=== PATIENT | female | born 1970 | race Caucasian/White ===

== ENCOUNTER 2025-06-04 22:08 | Inpatient (IN) | payer OTHER, SELFPAY ==
[2025-06-04 18:52] VITALS: BP 182/106
[2025-06-04 19:11] LABS: Hematocrit 21.7 % (37.0-47.0); Hemoglobin 7.1 g/dL (12.0-16.0); Mean Corp Hgb Conc. 32.7 g/dL (33.0-37.0); Mean Corpuscular Volume 94.3 fL (81.0-99.0); Nucleated Red Blood Cells % 0 %; Platelet Count 144 10^3/uL (130-400); Red Cell Dist. Width 13.3 % (11.5-14.5)
[2025-06-04 19:43] LABS: ALT (SGPT) 43 U/L (0-35); AST (SGOT) 39 U/L (14-36); Albumin 4.6 g/dl (3.5-5.0); Alkaline Phosphatase 161 U/L (38-126); Blood Urea Nitrogen 79 mg/dl (7-17); Calcium 9.0 mg/dl (8.4-10.2); Carbon Dioxide 21 mmol/L (22-30); Chloride 109 mmol/L (98-107); Glucose 113 mg/dl (70-99); Potassium 6.2 mmol/L (3.5-5.1); Sodium 138 mmol/L (135-145); Total Protein 7.2 g/dl (6.3-8.2); eGFR 8.94
[2025-06-04 20:29] VITALS: BP 160/99
--- NOTE | 2025-06-04 20:32 | ED.GENMED ---
History of Present Illness
General
Chief Complaint: Abnormal Lab Value
Source: patient
Exam Limitations: none
Time Seen by Provider: 06/04/25 20:14
Nursing documentation reviewed up to this point in time: agreed with
History of Present Illness
History of Present Illness:
54 yo female with no significant PMHX presents with complaints of gastrointestinal bloating and discomfort for the last four months. She reports a history of moving to the area two months ago after living in [facility] for 14 years. Initially, she
suspected parasitic infections and took anti-parasitic medications, including one with natural ingredients like wormwood and black walnut, in December and January without resolution of symptoms. The patient experiences bloating after meals, cramping,
and has recently noticed smelling and tasting ammonia. She has also experienced nausea and occasional vomiting. She mentions the development of painful gas. She attempted dietary changes, including following a low FODMAP diet, with little
improvement in symptoms. Saw her new PCP and yesterday had blood work, stool samples, and a chest x-ray, which was clear. Her primary care doctor called her today regarding labs indicative of kidney failure and abnormal liver function. The patient
is also experiencing exhaustion and difficulty eating.
Past History
Past History
ED Past Medical History: None
ED Past Surgical History: Gynecological (ectopic )
Social History
Tobacco: Non-smoker
Alcohol: Occasional
Personal: Single
Living: with family
Employment: Not employed
Review of Systems
Review of Systems
Allergies reviewed?: Yes
All Other Systems: ROS reviewed and negative except as documented in HPI and ROS
Constitutional: Reports fatigue; Denies fever
Respiratory: Denies trouble breathing
Cardiac: Denies chest pain
ABD/GI: Reports abdominal pain, nausea, vomiting (occasional) and anorexia
: Reports no symptoms
Musculoskeletal: Reports no symptoms
Skin: Reports no symptoms
Neurological: Reports no symptoms
Phy Exam
Physical Exam
Physical Exam:
GENERAL: No acute distress. A&Ox3.
CONSTITUTIONAL: Afebrile.
EYES: clear, conjunctivae normal
ENMT: moist mucus membranes, Pharynx nl
RESPIRATORY: Regular respirations, nonlabored, lungs clear.
CARDIOVASCULAR: Regular rate and rhythm, no murmurs, no rubs.
GI: Soft, mildly distended, tender across upper abdomen, normal BS
MUSCULOSKELETAL: Moves with ease. Well perfused.
SKIN: Warm, dry, pink
PSYCH: Normal mood and affect. Well kept, interactive and appropriate
NEUROLOGIC: Awake, alert and oriented. No focal neurological deficits
Course
Orders/Labs/Results
Orders:
Orders
06/04/25 Breakfast
Regular
At Your Request: Full Participation
06/04/25 18:54
ECG [Electrocardiogram (*1)] Urgent
Reason for Study: Abdominal Pain
EKG- Treatment ONCE
06/04/25 19:00
Type And Crossmatch [Type+Screen] Urgent
Complete Blood Count/With Diff Urgent
Comprehensive Metabolic Panel Urgent
Lactic Acid Urgent
Lipase Urgent
Comment: ADDON
06/04/25 19:35
ABO2 Urgent
BBK Wristband Number:
Associate notified that ABO2 has been ordered: [id number]
Date: 06/04/25
Time: 19:22
Telecommunications Manager ID: [id number]
06/04/25 20:41
Add On- LAB Urgent
Tests Added?: Lipase
06/04/25 20:44
Sodium Zirconium Cyclosilicate [Lokelma] 10 gram PO NOW STA
06/04/25 20:45
Dextrose 50%-Water [Dextrose 50% Syringe] 12.5 grams IV [id number] PRN
Dextrose 50%-Water [Dextrose 50% Syringe] 25 grams IV NOW STA
Insulin Human Regular [Novolin R] 5 units IV NOW STA
Sodium Bicarbonate 50 meq IV NOW STA
Bedside Glucose PRE IV Insulin- HyperK+ NOW
06/04/25 20:50
NEPHROLOGY CONSULT Urgent
Consulting Provider: Du Malagon V.
Was physician already notified: Yes
Reason for consult: acute renal failure
06/04/25 21:48
Admit/Transfer Patient As Directed
Co-Sign Provider:
Level of Care: Inpatient admission
Assign to:: Telemetry
Physician / Group: Demond
Diagnosis: Renal Failure, Hyperkalemia, Anemia
Reason for Telemetry: Arrhythmia
Date to Stop Telemetry: 06/07/25
Time to Stop Telemetry: 11:00
Reason for Hospitalization: Renal Failure, Hyperkalemia, Anemia
Expected length of stay greater than two midnights?: Yes
ELOS- Estimated Length of Stay in days: 3
I certify the patient meets the requirements for IP care: Yes
PRN Pain Medication Management As Directed
May give lesser potent ordered pain med per pt: Yes
preference::
Protocol:: Medication orders for pain may be administered in a
manner that supports deferring to patient preference
when the pt is:
- Requesting an ordered lesser potent pain medication.
Least to most potent pain medications are defined
as: acetaminophen < NSAID < tramadol < opioids
(morphine, oxycodone, hydromorphone).
- Requesting a lesser dose of the same medication IF
ORDERED.
- Requesting a less intrusive route of administration
if both routes are prescribed by the provider (PO <
IV).
06/04/25 21:53
Code Status As Directed
Resuscitation Status: Full Code
06/04/25 22:15
Bedside Glucose POST IV Insulin- HyperK+ Q1HX2,Q2HX2
06/04/25 22:45
Acetaminophen [Tylenol] 650 mg PO Q4HPRN PRN
HydrALAZINE [Apresoline] 5 mg IV Q6HPRN PRN
Ondansetron Injectable [Zofran] 4 mg IV Q6HPRN PRN
Sterile Water For Inj [Sterile Water For Injection 1000 ml] 1,000 ml Sodium Bicarbonate 150 meq IV 60 mls/hr
06/04/25 22:45
B12 [Vitamin B12] Routine
Ferritin Routine
Glycohemoglobin (HgbA1c) Routine
TSH Reflex To Free T4 Routine
Urinalysis Routine
Urine Creatinine Routine
Urine Protein Routine
Urine Sodium Routine
Activity As Directed
Activity Level: Ambulate
EKG with chest pain [ECG as needed] As Directed
ECG as needed for:: Chest Pain
I/O [Intake/ Output] As Directed
Frequency: Per unit guidelines
Vital Signs As Directed
Frequency: Per unit guidelines
Weight As Directed
Frequency: Daily
Oxygen Therapy [O2 Therapy] [RESP] Routine
Titrate/Wean O2 to maintain O2 sat greater than (%): 94
DX Deep Vein Thrombosis Video Routine
06/04/25 23:15
Iron Routine
Potassium Urgent
Comment: draw 2 hours after regular insulin IV administration
Total Iron Binding Routine
06/05/25 06:00
Cardiovascular Evaluation IN AM
Complete Blood Count/No Diff IN AM
Magnesium IN AM
Phosphorus IN AM
Prothrombin Time IN AM
US Abdomen Complete/Upper IN AM
Comment: Include kidneys and bladder please.
Reason For Exam: Abnormal LFTs, Renal Failure
06/05/25 08:00
Amlodipine [Norvasc] 5 mg PO DAILY
Heparin 5,000 units SC Q12
06/07/25 11:00
DC Protocol for Telemetry ONCE
Abnormal Lab Results
06/04/25 06/04/25
19:00 20:59
RBC 2.30 L 10^6/uL
(4.20-5.40)
Hgb 7.1 L g/dL
(12.0-16.0)
Hct 21.7 L %
(37.0-47.0)
MCHC 32.7 L g/dL
(33.0-37.0)
Potassium 6.2 H* mmol/L
(3.5-5.1)
Chloride 109 H mmol/L
(98-107)
Carbon Dioxide 21 L mmol/L
(22-30)
BUN 79 H mg/dl
(7-17)
Creatinine 5.3 H* mg/dL
(0.6-1.0)
Glucose 113 H mg/dl
(70-99)
AST 39 H U/L
(14-36)
ALT 43 H U/L
(0-35)
Alkaline Phosphatase 161 H U/L
(38-126)
Lipase 451 H U/L
(23-300)
POC Glucose 105 H mg/dl
(70-99)
06/04/25 19:00
06/04/25 19:00
Vital Signs
Initial and Last Documented VS:
Initial Vital Signs
Temp Pulse Resp BP Pulse Ox
98.4 F 95 18 182/106 100
06/04/25 18:52 06/04/25 18:52 06/04/25 18:52 06/04/25 18:52 06/04/25 18:52
Last Documented Vital Signs
Temp Pulse Resp BP Pulse Ox
98.1 F 104 16 149/88 99
06/04/25 23:10 06/04/25 23:10 06/04/25 23:10 06/04/25 23:10 06/04/25 23:10
Solution Lead consulted with Physician
Solution Lead consulted with physician?: Yes
Name of Physician Consulted: Mikel
MDM/Problems Addressed
Differential Diagnosis Includes:
The Differential Diagnosis includes, in no particular order and is not limited to:
1. Parasitic infection
2. Gastroenteritis
3. Irritable Bowel Syndrome
4. Hepatitis
5. Kidney disease
6. Gastroesophageal Reflux Disease
7. Peptic Ulcer Disease
8. Small Intestinal Bacterial Overgrowth
9. Functional Dyspepsia
10. Pancreatitis
MDM/Problems Addressed:
54 yo female with no significant PMHX presents with complaints of gastrointestinal bloating and discomfort for the last four months. She reports a history of moving to the area two months ago after living in [facility] for 14 years. Initially, she
suspected parasitic infections and took anti-parasitic medications, including one with natural ingredients like wormwood and black walnut, in December and January without resolution of symptoms. The patient experiences bloating after meals, cramping,
and has recently noticed smelling and tasting ammonia. She has also experienced nausea and occasional vomiting. She mentions the development of painful gas. She attempted dietary changes, including following a low FODMAP diet, with little
improvement in symptoms. Saw her new PCP and yesterday had blood work, stool samples, and a chest x-ray, which was clear. Her primary care doctor called her today regarding labs indicative of kidney failure and abnormal liver function. The patient
is also experiencing exhaustion and difficulty eating.
Problem list:
Acute problems:
- Bloating and gastrointestinal discomfort
- Possible kidney failure (based on lab results)
- Abnormal liver function tests
- Nausea and vomiting
CBC: Hgb 7.1 otherwise unremarkable
CMP: Potassium 6.2, BUN/creatinine 79/5.3 with a GFR of 8.94
Mildly elevated liver enzymes
EKG NSR
Plan: The patient will be admitted to the hospital for further evaluation and workup due to concerns about kidney failure and abnormal liver function, as well as the gastrointestinal symptoms. Further diagnostic testing and specialist consultations
will be coordinated for comprehensive assessment and management.
8:45 PM: Blood consent signed and scanned into chart
Hospitalist and rn transfer notified of admission
*Pulse Oximetry
SaO2: 100
Oxygen Mode of Delivery: Room air
Patient hypoxic: not evaluated
*EKG
EKG Intrepretation Date: 06/04/25
Interpretation: normal
Heart Rate: 94
Rate: normal
Rhythm: sinus
[place]: normal axis
Interval: normal interval
QRS Pattern: normal QRS
Ischemia: no ischemia
*Critical Care Note
Total Time (30-74mins, 75-104mins- exclusive of procedures): Not Applicable
ED Attending Note
-
Portions of this chart may have been created with voice recognition software.� Occasional wrong word or��sound alike� substitutions may have occurred due to the inherent limitations of voice recognition software.
Discharge Plan
Departure
Patient Disposition: Admit
Date of Disposition: 06/04/25
Time of Disposition: 20:49
Admit to: Med/Surg
Presentation/result/management discussed w/ accepting MD/DO: Hospitalist
Condition: Serious
Discharge Problem:
Acute renal failure (ARF)
Interventions
Interventions:
*Risk Screen - Suicide Last Done: 06/04/25 18:52
*General Assessment Last Done: 06/04/25 21:22
*Neglect/Abuse Screening Last Done: 06/04/25 18:52
*ED- Fall Risk Assessment Last Done: 06/04/25 21:22
*ED COVID-19 Vaccine History Last Done: 06/04/25 21:22
*Nursing Disposition Last Done: 06/04/25 22:38
Discharge Date and Time
Discharge Date/Time: 06/04/25 22:39
[2025-06-04 20:47] VITALS: BMI 19.9
[2025-06-04 21:00] VITALS: BP 155/99
[2025-06-04 21:00] LABS: Glucose - Point of Care 105 mg/dl (70-99)
[2025-06-04] MEDS: LOKELMA 10 GRAM PO (21:03)
[2025-06-04] MEDS: DEXTROSE 50% SYRINGE 25 GRAMS IV (21:08)
[2025-06-04] MEDS: SODIUM BICARBONATE 50 MEQ IV (21:09)
[2025-06-04] MEDS: NOVOLIN R 5 UNITS IV (21:13)
[2025-06-04 21:18] LABS: Lipase 451 U/L (23-300)
[2025-06-04 22:00] VITALS: BP 154/89
--- NOTE | 2025-06-04 22:01 | HPS.HSE ---
Family Physician
-
Family Physician: PHYSICIAN PRIVATE
Chief Complaint
-
Abnormal Labs
History of Present Illness
Patient is a 54y F with no known PMH who presents to ED for evaluation of abnormal labs. Patient states that she has lived in [facility] for the past 14 years. She moved back to the a few months ago. In December of this year, she began to
have symptoms of bloating and early satiety. She describes these as 'feeling parasitic' and noted that she took an initial course of antiparasitic agent in [facility] without much improvement in her symptoms. ? which agent. She then took a course
of homeopathic remedy and tried acupuncture - also without much improvement in her symptoms.
Patient reports fatigue, weight loss, abdominal bloating, early satiety and soft stools (about 2 per day) since that time. Her symptoms seemed to gradually progress over the past few months.
She saw a physician here to establish care and was sent to labs and CXR. CXR was reportedly unremarkable. Patient was called today and advised that she should present to the ED as her labs were markedly abnormal.
Patient states that she has not seen a physician in about 20 years.
Until recently, she was a vegetarian. She added animal protein to her diet in the past few months in attempt to improve GI symptoms with diet changes / low FODMAP / etc.
Medical History
Past Medical History
Past Medical History: Reports None
Past Surgical History: Reports Other
Additional Past Surgical History:
Ectopic
Left Breast Fibroadenoma Resection
Social History
Tobacco: Non-smoker
Alcohol: Occasional (Rare)
Drug: Marijuana (THC 1-2 times per week.)
Family History
Family History: Diabetes, Hypertension and Other (Thyroid disease)
Allergies / Home Medications
Allergies reflects when Allergies were last updated in [facility].
Home Medications with original date entered in [facility]
Allergy/Medication List:
Allergies
Allergy/AdvReac Type Severity Reaction Status Date / Time
No Known Allergies Allergy Unverified 06/04/25 18:51
Home Medications
ascorbic acid (vitamin C) 250 mg tablet (Vitamin C) 250 mg PO DAILY 06/04/25
calcium carbonate (Tums Extra Strength Smoothies) 600 - 900 mg PO DAILYPRN PRN stomach upset 06/04/25
Review of Systems
-
History Source: Patient
A 12 point ROS was completed and negative except as noted: Yes
Constitutional: Reports Weight Loss and Fatigue; Denies Fever or Chills
EENT: Denies Sore Throat
Respiratory: Denies Cough or Trouble Breathing
Cardiac: Denies Chest Pain or Palpitations
Abdomen/GI: Reports Pain (Soft stools, bloating, early satiety.); Denies Abdominal Pain, Nausea or Vomiting
: Denies Dysuria or Frequency
Musculoskeletal: Denies Joint Pain or Edema
Neurological: Denies Dizzy or Headache
Physical Exam
Vital Signs
Vital Signs
Temp Pulse Resp BP Pulse Ox
98.4 F 95 18 160/99 100
06/04/25 18:52 06/04/25 18:52 06/04/25 18:52 06/04/25 20:29 06/04/25 21:22
Physical Exam
General: Other (54y F in no acute distress. Thin. [place] complexion.)
HEENT: Other (No scleral icterus. MMM. Neck supple.)
Respiratory: Clear; No Wheezes, Rales or Rhonchi
Cardiac: S1/S2 and Regular Rhythm; No Murmur
GI: Other (Bloated. Not tender. Pos BS.)
Musculoskeletal: No Clubbing, No Cyanosis and No Edema
Neuro: AO x 3 and Nonfocal/grossly intact
Laboratory Results
-
06/04/25 19:00
Laboratory Results
Lactic Acid 0.8 mmol/L (0.7-2.0) 06/04/25 19:00
Total Bilirubin 0.5 mg/dl (0.2-1.3) 06/04/25 19:00
AST 39 U/L (14-36) H 06/04/25 19:00
ALT 43 U/L (0-35) H 06/04/25 19:00
Alkaline Phosphatase 161 U/L (38-126) H 06/04/25 19:00
Lipase 451 U/L (23-300) H 06/04/25 19:00
Impression/Plan
-
A/P: Patient is a 54y F with no established PMH who presents to ED for evaluation of abnormal labs and several months of abdominal bloating, weight loss and fatigue.
Renal Failure - ? acuity
Hypokalemia
Non-Gapped Metabolic Acidosis
- Admit for further evaluation and treatment.
- Unclear etiology of impaired renal function, hyperkalemia.
- Initial temporizing measures taken in the ED.
- Low rate IVFs with supplemental bicarb overnight.
- Check urine studies. Check abdominal / renal US.
- Nephrology evaluation for additional recommendations.
- Seems likely this is subacute or chronic rather than acute process.
Abnormal LFTs
- Unclear etiology.
- Check abdominal US as noted above.
- Check hepatitis serologies.
Normocytic Anemia
- ? chronicity. Patient denies any gross bleeding.
- Check iron studies, B12, etc.
- ? secondary to chronic renal disease as noted above / suspected.
- Follow for changes in H&H and consider transfusion if needed.
Benign Hypertension
- BP significantly elevated in the ED.
- Long-standing and poorly controlled hypertension may explain much.
- Begin amlodipine in the AM.
- IV hydralazine PRN very high BP.
DVT Prophylaxis: Subcut Heparin
Code Status: Full
[2025-06-04 22:21] LABS: Glucose - Point of Care 60 mg/dl (70-99)
[2025-06-04 23:10] VITALS: BP 149/88; BMI 19.6
[2025-06-04] MEDS: SODIUM BICARBONATE 1150 MEQ IV (23:29)
[2025-06-05] VITALS (9 sets, daily range): BP systolic 141–154; BP diastolic 84–98; BMI 19.6
[2025-06-05 01:32] LABS: Urine Character Clear (Clear)
[2025-06-05 01:38] LABS: Urine Red Blood Cell None Seen /HPF (0-2); Urine White Cell 0-2 /HPF (0-5)
[2025-06-05 01:42] LABS: Iron 54 ug/dl (37-170); Potassium 5.3 mmol/L (3.5-5.1)
[2025-06-05 01:51] LABS: Total Iron Binding Capacity 279 ug/dl (265-497)
[2025-06-05 02:26] LABS: Ferritin 308.0 ng/ml (11.1-264.0)
[2025-06-05 02:40] LABS: Vitamin B12 > 1000 pg/ml (239-931)
[2025-06-05 02:44] LABS: Glucose - Point of Care 118 mg/dl (70-99)
--- NOTE | 2025-06-05 03:00 | TRANSFER ---
Pt transferred to 3W from ED via stretcher. Pt got up for standing weight then ambulated to hospital bed. Vitals on admission BP 149/88 P 104 T 98.1 R 16 O2 99% on room air. Pt oriented to unit, call olrenzo within reach, plan of care ongoing.
[2025-06-05 03:38] LABS: Glucose - Point of Care 117 mg/dl (70-99)
[2025-06-05 06:10] LABS: INR 1.14; PT 14.9 Sec (11.4-14.6)
[2025-06-05 06:16] LABS: Hematocrit 20.9 % (37.0-47.0); Hemoglobin 6.9 g/dL (12.0-16.0); Mean Corp Hgb Conc. 33.0 g/dL (33.0-37.0); Mean Corpuscular Volume 91.7 fL (81.0-99.0); Platelet Count 134 10^3/uL (130-400); Red Cell Dist. Width 13.1 % (11.5-14.5)
[2025-06-05 06:19] LABS: ALT (SGPT) 38 U/L (0-35); AST (SGOT) 35 U/L (14-36); Albumin 3.8 g/dl (3.5-5.0); Alkaline Phosphatase 155 U/L (38-126); Blood Urea Nitrogen 77 mg/dl (7-17); Calcium 8.4 mg/dl (8.4-10.2); Carbon Dioxide 22 mmol/L (22-30); Chloride 108 mmol/L (98-107); Estimated Creatinine Clearance 10 ml/min; Glucose 99 mg/dl (70-99); HDL Cholesterol 68 mg/dl; LDL Cholesterol, Calculated 77 mg/dl; Magnesium 1.7 mg/dl (1.6-2.3); Potassium 4.8 mmol/L (3.5-5.1); Sodium 136 mmol/L (135-145); Total Protein 6.1 g/dl (6.3-8.2); Very Low Density Lipoprotein 10 mg/dl (0-30); eGFR 9.14
--- NOTE | 2025-06-05 07:03 | W.PN.UPDATE ---
Update Note
Progress Note Update
Critical values received for AM labs: Hgb 6.9, Hct 20.9, Creatinine 5.2, BUN 77, eGFR 9.14, phosphorus 5.6. TT sent to Nephrology w/critical labs.
Type and cross completed, consent obtained and in chart.
[2025-06-05] MEDS: HEPARIN 5000 UNITS SC ×2 (08:10→20:15)
[2025-06-05] MEDS: NORVASC 5 MG PO (08:11)
[2025-06-05 09:12] LABS: Glycohemoglobin (HgbA1c) 4.9 % (4.0-5.6)
--- NOTE | 2025-06-05 12:35 | W.CON.NEPH ---
Consultation
-
Date/Time Consultation Requested: 06/04/252049
Date/Time Consultation Performed: 06/05/25 1130
Requesting Provider: Dany Recinos
Performing Provider: Analisa Bender
Reason for Consultation: AVERY
Medical History
-
Chief Complaint: abnormal labs
History of Present Illness:
54y F with no known PMH and not see doctor for 20yrs who presents to ED for evaluation of abnormal labs. Patient states that she has lived in [place] for the past 14 years. She moved back to the a few months ago in March and was living with
her sister. In December of this year, she began to have symptoms of bloating and early satiety. She describes these as 'feeling parasitic' and noted that she took an initial course of antiparasitic agent in [facility] without much improvement in
her symptoms. Since she came back to [facility] She then took a course of homeopathic remedy and tried acupuncture - also without much improvement in her symptoms. She has wt loss of few pounds, early satiety and with bloating she has shallow breathing
too. She was drinking electrolyte water daily. She finally found PCP and had labs and stool studies done. She was called from PCP office to come to ER for high cr. On arrival here cr at 5.3, BUN 79, k 6.2, hb 7.1.
Until recently, she was a vegetarian. She added animal protein to her diet in the past few months in attempt to improve GI symptoms. She had labs done in 2010 when she had Dengue and does not recall kidneys issues back then. NO labs since that time
until now.
SHe also reports of smelling ammonia lately from her breath. Foil Spooler CP or sob or edema. No dysuria or change in volume. Denies NSAIDs use.
Past Medical History
none
Past Surgical History: Other (Ectopic Left Breast Fibroadenoma Resection)
Social History
Tobacco: Non-Smoker
Alcohol: Occasional
Drug: Marijuana
Personal: Single
Living: With Family (sister)
Employment: Employed (manages [employer] )
Family History
father with mild CKD
Allergies / Home Medications
Allergy/AdvReac Type Severity Reaction Status Date / Time
No Known Allergies Allergy Unverified 06/04/25 18:51
�Medication �Instructions �Recorded �Confirmed �Type
ascorbic acid (vitamin C) 250 mg 250 mg PO DAILY 06/04/25 06/04/25 History
tablet (Vitamin C)
calcium carbonate (Tums Extra 600 - 900 mg PO DAILYPRN PRN 06/04/25 06/04/25 History
Strength Smoothies) stomach upset
Review of Systems
-
All other systems: Negative unless noted
Physical Exam
Vital Signs
Vital Signs
Temp Pulse Resp BP Pulse Ox
98.5 F 92 16 150/95 100
06/05/25 12:15 06/05/25 12:15 06/05/25 12:15 06/05/25 12:15 06/05/25 12:15
Lab Results
WBC 4.5 10^3/uL (4.8-10.8) L 06/05/25 05:29
RBC 2.28 10^6/uL (4.20-5.40) L 06/05/25 05:29
Hgb 6.9 g/dL (12.0-16.0) L* 06/05/25 05:29
Hct 20.9 % (37.0-47.0) L* 06/05/25 05:29
Plt Count 134 10^3/uL (130-400) 06/05/25 05:29
Sodium 136 mmol/L (135-145) 06/05/25 05:29
Potassium 4.8 mmol/L (3.5-5.1) 06/05/25 05:29
Chloride 108 mmol/L (98-107) H 06/05/25 05:29
Carbon Dioxide 22 mmol/L (22-30) 06/05/25 05:29
BUN 77 mg/dl (7-17) H 06/05/25 05:29
Creatinine 5.2 mg/dL (0.6-1.0) H* 06/05/25 05:
eGFR 9.14 06/05/25 05:
Glucose 99 mg/dl (70-99) 06/05/25 05:
Calcium 8.4 mg/dl (8.4-10.2) 06/05/25 05:
Phosphorus 5.6 mg/dl (2.5-4.5) H 06/05/25 05:
Albumin 3.8 g/dl (3.5-5.0) 06/05/25 05:
Physical Exam
General: Awake, Alert, Oriented, AOx3, No Distress and Nontoxic
HEENT: EOMI, Anicteric, Dentition Intact, Facial Symmetry, Neck Supple and No JVD
Respiratory: Clear, Normal Excursion and Nonlabored Respirations
Cardiac: S1/S2 and Regular Rate/Rhythm
Breast: Deferred by me
Abdomen: Soft, Nontender and Other (mild distension )
Musculoskeletal: No Cyanosis and No Edema
Skin: No Rash
Neuro: Nonfocal/Grossly Intact
Psych: Mood/afflect pleasant, Insight/judgement good and Appropriate
Data Reviewed
-
Labs: Labs Reviewed by me, Discussed with Nurse and Discussed with Patient
Assessment/Plan
-
IMP:
Renal Failure -AVERY vs CKD
Hyperkalemia
Non-Gapped Metabolic Acidosis
Abnormal LFTs
Normocytic Anemia
Elevated BPs
Mild hyperphosphatemia
Plan:
A/w abnormal labs, high cr
AVERY vs CKD-no basline to compare
cr no change with IVF
given anemia check paraprotein w/u , suspect it is likely CKD than AVERY
UA bland, 1+alb and U PCR 577mg/gm of cr
await US abd to r/o obst etiology
suspect she likely has CKD
hyperkalemia is improving post Lokelma
met acidosis is better and ok to d/c IVF
vol status seem stable
no emergent need of dialysis
she will need insurance set up-to discuss with CM
renal diet
agree with AMlodpine for high Bps
avoid nephrotoxins , no h/o NSAIDs
transfusion for anemia, fe sat 19%, ferritin slightly up at 308-likely anemia of CKD
follow LFTs
d/w pt and nursing
--- NOTE | 2025-06-05 14:03 | W.PN.HOSP.TC ---
Addendum entered and electronically signed by Abelardo Beltran MD 06/05/25 16:24:
AVERY versus AVERY on CKD versus progressive CKD
Unknown baseline creatinine
Continues to produce urine well 600 to 700 cc output reported per nursing
[place] urine with protein creat ratio 0.6
Nephrology recommends a paraproteinemia workup. However total protein 6.1 albumin 3.8 which equals 2.3. Therefore unlikely a paraproteinemia however can still check SPEP UPEP immunofixation kappa lambda light chains. HIV hepatitis C.
Unclear if this is related to herbal supplements that was previously used. Has not seen a physician within 20 years therefore unknown lab work at this time.
Without evidence of hyperkalemia acidemia uremia, no indications for renal replacement therapy at this time
May require hemodialysis in the very near future
Will repeat BMP in the a.m. to assess renal function again
Avoid nephrotoxins hypotension
Nephrology following
Normocytic anemia without evidence of acute blood loss anemia. Hemodynamically stable. Denies hematochezia, melena, hematuria, hemoptysis, epistaxis. Suspect likely related to anemia of renal disease/chronic disease as high ferritin.
-Transfuse to maintain hemoglobin greater than 7 per Tricc trial guidelines
- Repeat CBC 2 hours post transfusion completion
- Retransfuse if less than 7
HyperK
REsolved post lokelma
Original Note:
Today's Communication/Plan
-
Follow-up abdominal and bladder ultrasounds to further elucidate etiology of renal failure, LFT abnormalities, chronic bloating, and early satiety.
Monitor clinical status. Consider hemodialysis if kidney function does not improve.
Monitor H&H, transfusing additional blood if necessary.
Assessment / Plan
Assessment / Plan
Patient is a 54-year-old female with no known past medical history who presented to the [facility] emergency department for evaluation of abnormal outpatient labs. The labs were completed after the patient attempted to establish care with
a PCP due to her fatigue, weight loss, abdominal bloating, early satiety, and solid stools since December of this year. [place] the [place] ago after living in [facility] for 14 years. Patient's labs on presentation included
the following: Cr 5.3, BUN 79, K 6.2, AST 39, ALT 43, alk phos 161, and lipase 451.
#Renal failure
Trend Cr: 5.3 > 5.2 (eGFR 9.14)
Etiology and time course of renal failure currently unclear, workup ongoing
On presentation on admission, patient described taking an antiparasitic agent in [facility], as well as black walnut, clove, and a probiotic for bloating
Patient reported she has not seen her physician in 20+ years
Patient appears euvolemic on exam
Urine studies: Urine osm 297, urine total protein 26, urine albumin 1+
Abdominal ultrasound pending
Bladder scan pending
Patient informed HD could be necessary, pending evaluation by nephrology
Nephrology following
#Anemia
Hgb 6.9 this morning, from 7.1 yesterday
Suspected 2/2 renal failure or chronic disease
Patient transfused 1 unit PRBCs this morning
Anemia workup: MCV 91.7 (normocytic), elevated ferritin (308)
Consider EPO stimulating agent if Hgb does not stabilize
Transfuse Hgb <7
#Hyperkalemia
Potassium 6.2 on presentation
Administered Lokelma
Trend potassium: 6.2 > 5.3 > 4.8
#Transaminitis
Mild elevations of LFTs today: AST 35 (WNL), ALT 30, alk phos 155
LFTs not substantially changed from those on presentation
Abdominal ultrasound pending
DVT PPx: SC heparin
Anticipated Discharge: > 48 hours
Subjective/Interval History
-
Date of Service: June 05, 2025
Patient seen at the bedside on hospital day #2. Nursing reports NAEO. Patient describes mild, intermittent lower abdominal pain. She states her abdomen is reed than normal. Reports she is urinating without issue.
Objective Data
-
Labs:
Laboratory Results
06/05/25
05:29
WBC 4.5 L
Hgb 6.9 L*
Hct 20.9 L*
Plt Count 134
PT 14.9 H
INR 1.14
Sodium 136
Potassium 4.8
Chloride 108 H
Carbon Dioxide 22
BUN 77 H
Creatinine 5.2 H*
Glucose 99
Calcium 8.4
Total Bilirubin 0.5
AST 35
ALT 38 H
Alkaline Phosphatase 155 H
Vital Signs:
Vital Signs
Temp Pulse Resp BP Pulse Ox
98.5 F 92 16 150/95 100
06/05/25 12:15 06/05/25 12:15 06/05/25 12:15 06/05/25 12:15 06/05/25 12:15
I&O
06/04/25 06/05/25 06/06/25
06:59 06:59 06:59
Intake Total 250 / 250
Balance 250 / 250
Review of Systems
-
History Source: Patient
Constitutional: Reports Fatigue; Denies Fever or Chills
Respiratory: Denies Trouble Breathing
Cardiac: Denies Chest Pain, Palpitations or Syncope
Abdomen/GI: Reports Abdominal Pain (Mild, intermittent lower abdominal pain) and Bloated; Denies Nausea, Vomiting, Diarrhea or Bloody Stools (Patient reports her stools have been a normal brown color)
Genitourinary: Denies Dysuria, Frequency or Difficulty Voiding
Musculoskeletal: Denies Edema
Skin: Reports No Symptoms
Neuro: Reports Headache (Mild headache); Denies Lightheadedness
Physical Exam
-
General: Well Developed, Well Nourished, No Apparent Distress, Comfortable and Conversant; Negative Respiratory Distress
HEENT: Normocephalic and Atraumatic
Respiratory: Clear to Auscultation and Non Labored Respirations; Negative Wheezes, Crackles or Accessory Resp Muscle Use
Cardiac: Regular Rhythm and S1/S2; Negative Murmur, Rub or Gallop
GI: Soft, Normal Bowel Sounds, Distended (Patient reports abdomen is more distended than normal; no fluid wave appreciated) and Other (Discomfort on palpation, but no pain)
Musculoskeletal: No Cyanosis and No Edema
Skin: Warm, Dry and Normal Turgor
Neuro: AO x 3
Psych: Calm
[2025-06-05 22:13] LABS: Hematocrit 23.1 % (37.0-47.0); Hemoglobin 8.0 g/dL (12.0-16.0)
[2025-06-06] VITALS (9 sets, daily range): BP systolic 88–153; BP diastolic 82–104; BMI 19.1
[2025-06-06 05:53] LABS: Hematocrit 24.6 % (37.0-47.0); Hemoglobin 8.4 g/dL (12.0-16.0); Mean Corp Hgb Conc. 34.1 g/dL (33.0-37.0); Mean Corpuscular Volume 88.2 fL (81.0-99.0); Nucleated Red Blood Cells % 0 %; Platelet Count 135 10^3/uL (130-400); Red Cell Dist. Width 15.2 % (11.5-14.5)
[2025-06-06 06:22] LABS: ALT (SGPT) 43 U/L (0-35); AST (SGOT) 40 U/L (14-36); Albumin 3.8 g/dl (3.5-5.0); Alkaline Phosphatase 147 U/L (38-126); Blood Urea Nitrogen 73 mg/dl (7-17); Calcium 8.7 mg/dl (8.4-10.2); Carbon Dioxide 25 mmol/L (22-30); Chloride 108 mmol/L (98-107); Estimated Creatinine Clearance 10 ml/min; Glucose 105 mg/dl (70-99); Potassium 6.0 mmol/L (3.5-5.1); Sodium 137 mmol/L (135-145); Total Protein 6.2 g/dl (6.3-8.2); eGFR 9.14
[2025-06-06] MEDS: LOKELMA 10 GRAM PO ×2 (08:18→14:23)
[2025-06-06] MEDS: HEPARIN 5000 UNITS SC ×2 (08:18→20:47)
--- NOTE | 2025-06-06 10:56 | W.PN.HOSP.TC ---
Addendum entered and electronically signed by Abelardo Beltran MD 06/07/25 21:41:
AVERY versus AVERY on CKD versus progressive CKD
Unknown baseline creatinine
Continues to produce urine well 600 to 700 cc output reported per nursing
[place] urine with protein creat ratio 0.6
Nephrology recommends a paraproteinemia workup. However total protein 6.1 albumin 3.8 which equals 2.3. Therefore unlikely a paraproteinemia however can still check SPEP UPEP immunofixation kappa lambda light chains. HIV hepatitis C.
Unclear if this is related to herbal supplements that was previously used. Has not seen a physician within 20 years therefore unknown lab work at this time.
Without evidence of hyperkalemia acidemia uremia, no indications for renal replacement therapy at this time
May require hemodialysis in the very near future
Will repeat BMP in the a.m. to assess renal function again
Avoid nephrotoxins hypotension
Nephrology following
Ascites with IVC obstruction
-Ddx board (cirrhosis though unlikely, HF unlikley, Potentially likely related to IVC obstruction leslie if saag >1.1 with >2.5 protein in ascitic fluid. If Saag <1.1 leading ddx at that point would like be peritoneal carcinmatosis. With no proteinuria
incredibly low concern for nephrotic syndrome
IVC obstruction
-Can further eval with full ultrasound of IVC or can get CTAP non con as renal function is high, would prefer with con but not feasible at this time
Normocytic anemia without evidence of acute blood loss anemia. Hemodynamically stable. Denies hematochezia, melena, hematuria, hemoptysis, epistaxis. Suspect likely related to anemia of renal disease/chronic disease as high ferritin.
-Transfuse to maintain hemoglobin greater than 7 per Tricc trial guidelines
- Repeat CBC 2 hours post transfusion completion
- Retransfuse if less than 7
HyperK
REsolved post lokelma
Original Note:
Today's Communication/Plan
-
Follow-up paracentesis results and IVC/iliacs ultrasound.
Monitor clinical status. Consider hemodialysis if kidney function does not improve.
Assessment / Plan
Assessment / Plan
Patient is a 54-year-old female with no known past medical history who presented to the [facility] emergency department for evaluation of abnormal outpatient labs. The labs were completed after the patient attempted to establish care with
a PCP due to her fatigue, weight loss, abdominal bloating, early satiety, and solid stools since December of this year. [place] the [place] ago after living in [facility] for 14 years. Patient's labs on presentation included
the following: Cr 5.3, BUN 79, K 6.2, AST 39, ALT 43, alk phos 161, and lipase 451.
#Renal failure
Trend Cr: 5.3 > 5.2 > 5.2 (eGFR 9.14). Stable, though still markedly elevated.
Etiology and time course of renal failure currently unclear, workup ongoing
On presentation on admission, patient described taking an antiparasitic agent in [facility], as well as black walnut, clove, and a probiotic for bloating
Patient reported she has not seen her physician in 20+ years
Patient appears euvolemic on exam, though she does have a mildly distended abdomen
proBNP: 1720
Urine studies: Urine osm 297, urine total protein 26, urine albumin 1+
Multiple myeloma, hepatitis workup: Pending
Abdominal ultrasound (06/05): Per radiology, ascites, fatty liver, b/l renal collecting system dilatation, possible IVC thrombus.
Bladder scan (06/05): Per radiology, pelvic ascites.
IVC/iliac ultrasound pending for further elucidation of possible IVC thrombus
Paracentesis pending for further elucidation of abdominal ascites via analysis of SAAG
Patient informed HD could be necessary, pending evaluation by nephrology
Nephrology following
#Anemia
Hgb 8.4, stable s/p 1 unit PRBCs yesterday
Suspected 2/2 renal failure or chronic disease
Anemia workup: MCV 88.2�94.3, elevated ferritin (308)
Consider EPO stimulating agent if Hgb does not stabilize
No evidence of bleeding
Transfuse Hgb <7
#Hyperkalemia
Potassium 6.0 this morning, 6.2 on presentation
Administered Lokelma, EKG pending (06/06)
Trend potassium: 6.2 > 5.3 > 4.8 > 6.0
#Transaminitis
Mild elevations of LFTs today: AST 40, ALT 43, alk phos 147
LFTs not substantially changed from those on presentation
Abdominal ultrasound (06/05) as detailed above
DVT PPx: SC heparin
CODE STATUS: Full
Anticipated Discharge: > 48 hours
Subjective/Interval History
-
Date of Service: June 06, 2025
Patient is seen at the bedside on hospital day #2. Patient states she feels less bloated than yesterday. She has had 2 bowel movements in the last day. Patient reports a mild, dull headache, which she attributes to poor sleep. Otherwise, no
current complaints.
Objective Data
-
Labs:
Laboratory Results
06/06/25
05:18
WBC 4.0 L
Hgb 8.4 L
Hct 24.6 L
Plt Count 135
Sodium 137
Potassium 6.0 H
Chloride 108 H
Carbon Dioxide 25
BUN 73 H
Creatinine 5.2 H*
Glucose 105 H
Calcium 8.7
Total Bilirubin 0.6
AST 40 H
ALT 43 H
Alkaline Phosphatase 147 H
Vital Signs:
Vital Signs
Temp Pulse Resp BP Pulse Ox
98.6 F 88 16 148/104 99
06/06/25 10:07 06/06/25 10:07 06/06/25 10:07 06/06/25 10:07 06/06/25 10:07
I&O
07/06/06/25 06/07/25
06:59 06:59 06:59
Intake Total 730 / 730
Output Total 1875 / 187
Balance -1145 / -1145
Review of Systems
-
History Source: Patient
Constitutional: Denies Fever, Fatigue or Chills
EENT: Reports No Symptoms Reported
Respiratory: Denies Cough or Trouble Breathing
Cardiac: Denies Chest Pain, Palpitations or Syncope
Abdomen/GI: Reports Abdominal Pain and Bloated (Still bloated, though improved compared to yesterday); Denies Nausea, Vomiting, Diarrhea or Bloody Stools
Genitourinary: Reports Other (Currently has a Manzo for 24-hour urine culture)
Musculoskeletal: Denies Edema
Skin: Reports No Symptoms
Neuro: Reports Headache (Mild, dull, attributed to poor sleep); Denies Weakness, Numbness or Lightheadedness
Physical Exam
-
General: Well Developed, Well Nourished, No Apparent Distress, Comfortable and Conversant
HEENT: Normocephalic and Atraumatic
Respiratory: Clear to Auscultation and Non Labored Respirations; Negative Wheezes or Crackles
Cardiac: Regular Rhythm and S1/S2; Negative Murmur, Rub, Gallop, Tachycardic or Bradycardic
GI: Soft, Nontender, Normal Bowel Sounds and Distended (Abdomen distended relative to patient's norm)
Musculoskeletal: No Cyanosis and No Edema
Skin: Warm and Dry; Negative Jaundice
Neuro: AO x 3, No Motor Deficits and No Sensory Deficits
Psych: Calm
[2025-06-06] MEDS: NORVASC 5 MG PO (11:43)
[2025-06-06 11:44] LABS: Body Fluid Second Tech SS
--- NOTE | 2025-06-06 13:21 | W.PN.NEPH.PH ---
Today's Communication / Plan
-
see plan
Assessment/Plan
-
IMP:
Renal Failure -AVERY vs CKD
Hyperkalemia
Non-Gapped Metabolic Acidosis
Abnormal LFTs
Normocytic Anemia
Elevated BPs
Mild hyperphosphatemia
Plan:
A/w abnormal labs, high cr
AVERY vs CKD-no basline to compare
cr no change still
given anemia check paraprotein w/u , suspect it is likely CKD than AVERY
UA bland, 1+alb and U PCR 577mg/gm of cr
US shows marked bilat renal collecting system dilation right Ureteral jet not seen -dobbs placed, check CT abd with out contrast
also new ascites and diffuse fatty liver
hyperkalemia Lokelma course
BNP is high likely need echo, remains off IVF
no emergent need of dialysis
BP stable on CCB
Anemia-hb stable post PRBC fe sat 19%, ferritin slightly up at 308-likely anemia of CKD
she will need insurance set up
renal diet
avoid nephrotoxins , no h/o NSAIDs
follow LFTs
d/w pt in detail
-
-
Date of Service: June 06, 2025
CC / HPI / ROS
-
Chief Complaint:
AVERY
History of Present Illness:
cr no cahnge at 5.2, k is up at 6
met acidosis better bicarb 25
BP stable
s/p paracentesis 1.1lit today
no fever
Review of Systems:
feels better post para
no cp or sib
Labs
-
Labs:
WBC 4.0 10^3/uL (4.8-10.8) L 06/06/25 05:18
RBC 2.79 10^6/uL (4.20-5.40) L 06/06/25 05:18
Hgb 8.4 g/dL (12.0-16.0) L 06/06/25 05:18
Hct 24.6 % (37.0-47.0) L 06/06/25 05:18
Plt Count 135 10^3/uL (130-400) 06/06/25 05:18
Sodium 137 mmol/L (135-145) 06/06/25 05:18
Potassium 6.0 mmol/L (3.5-5.1) H 06/06/25 05:18
Chloride 108 mmol/L (98-107) H 06/06/25 05:18
Carbon Dioxide 25 mmol/L (22-30) 06/06/25 05:18
BUN 73 mg/dl (7-17) H 06/06/25 05:18
Creatinine 5.2 mg/dL (0.6-1.0) H* 06/06/25 05:18
eGFR 9.14 06/06/25 05:18
Glucose 105 mg/dl (70-99) H 06/06/25 05:18
Calcium 8.7 mg/dl (8.4-10.2) 06/06/25 05:18
Phosphorus 5.6 mg/dl (2.5-4.5) H 06/05/25 05:29
Jbf-R-Mpygotaqzet Pept 1720 pg/ml 06/05/25 05:29
Albumin 3.8 g/dl (3.5-5.0) 06/06/25 05:18
Physical Exam
-
Vital Signs:
Vital Signs
Temp Pulse Resp BP Pulse Ox
98.1 F 86 16 137/92 100
06/06/25 11:43 06/06/25 11:43 06/06/25 11:43 06/06/25 11:43 06/06/25 11:43
Cardiovascular:: Regular rate and rhythm
Respiratory:: Bilateral: CTA
Lung Excursion:: Normal
Abdomen:: Nontender and Soft
Extremity Edema:: None: Bilateral:
Dobbs Catheter: No
--- NOTE | 2025-06-06 13:48 | CM ---
CM following this 54yo female admitted with acute renal failure. She is uninsured; CM contacted [facility] with [facility] who advised that she has spoken with Sarah and is awaiting bank statements to proceed with application for Medical Assistance.
Plan: CM following to coordinate all discharge planning needs. [facility] is involved to coordinate Medical Assistance application.
[2025-06-06 18:39] LABS: Hepatitis B Surface Antigen Negative (Negative)
[2025-06-06 18:56] LABS: Hepatitis C Antibody Negative (Negative)
--- NOTE | 2025-06-06 19:59 | CONS.URO ---
Consultation
-
Date/Time Consultation Performed: 199906/06/25
Performing Provider: Peffer
Reason for Consultation: Hydronephrosis, ureteral obstruction
Medical History
History of Present Illness
54F with no past medical history
No prior urologic history
Presented to ER for abnormal outpatient labs obtained for fatigue, weight loss, abdominal bloating, early satiety December of this year
[place] the [place] ago after living in [facility] for 14 years
Patient's labs on presentation included elevated creatinine and liver enzymes
Abd US showed bilateral hydronephrosis and ascites
She had a paracentesis today by IR
Nehrology was consulted for AVERY/CKD. dobbs was placed as part of workup
On renal bladder US PVR was 0 and bladder appeared normal. L ureteral jet apparent
CT scan was done this afternoon showing severe bilateral hydronephrosis.
Urology consulted for eval
No gross hematuria
No voiding symptoms
No pelvic pain
Past Medical History
Past Medical History: None
Past Surgical History: None
Social History
Tobacco: Non-smoker
Alcohol: None
Drug: None
Family History
Family History: Reviewed & Not Pertinent
Allergies/Home Medications
Allergies
Allergy/AdvReac Type Severity Reaction Status Date / Time
No Known Allergies Allergy Unverified 06/04/25 18:51
Home Medications
�Medication �Instructions �Recorded �Confirmed �Type
ascorbic acid (vitamin C) 250 mg 250 mg PO DAILY 06/04/25 06/04/25 History
tablet (Vitamin C)
calcium carbonate (Tums Extra 600 - 900 mg PO DAILYPRN PRN 06/04/25 06/04/25 History
Strength Smoothies) stomach upset
Physical Exam
Vital Signs
Vital Signs
Temp Pulse Resp BP Pulse Ox
98.9 F 91 14 136/85 99
06/06/25 19:44 06/06/25 19:44 06/06/25 19:44 06/06/25 19:44 06/06/25 19:44
Lab / Testing Results
Laboratory Results
06/06/25 05:18
Physical Exam
General: Well Developed and No Apparent Distress
Respiratory: Clear
GI: Soft and Non Tender
Genito-urinary: No Costovertebral Tend
Neuro: AO x 3
Psych: Calm and Intact Judgement
Assessment / Plan
-
54F with severe bilateral hydronephrosis, pelvic mass, ascites, weight loss, acute vs chronic renal failure
Bilateral ureteral obstruction of unclear nature - would suspect large pelvic mass but ureters are not grossly dilated. Bilateral UPJ obstruction from retroperitoneal fibrosis process or metastatic malignancy?
Recommend bilateral percutaneous nephrostomy tube placement pending additional testing and workup
Request that IR try some antegrade pyelogram to determine location of obstruction if possible
Needs further workup of pelvic mass and bone lesions to rule out malignancy
Bladder US shows normal bladder wall without intramural mass, normal UA - very low suspicion for primary urologic malignancy
No urinary retention on renal US
Okay to remove dobbs
--- NOTE | 2025-06-06 21:13 | PTCARENOTE ---
Manzo removed per order. 24 hour urine collection to be completed 06/07 @0000. Pt to be kept NPO at midnight for b/l nephrostomy tube placement. Pt informed of the plan. Plan of care ongoing.
[2025-06-06 21:43] LABS: Blood Urea Nitrogen 65 mg/dl (7-17); Calcium 8.0 mg/dl (8.4-10.2); Carbon Dioxide 23 mmol/L (22-30); Chloride 104 mmol/L (98-107); Estimated Creatinine Clearance 11 ml/min; Glucose 119 mg/dl (70-99); Potassium 3.8 mmol/L (3.5-5.1); Sodium 137 mmol/L (135-145); eGFR 10.32
[2025-06-07] VITALS (19 sets, daily range): BP systolic 65–151; BP diastolic 62–97; BMI 18.2
[2025-06-07 06:27] LABS: Hematocrit 26.9 % (37.0-47.0); Hemoglobin 9.1 g/dL (12.0-16.0); Mean Corp Hgb Conc. 33.8 g/dL (33.0-37.0); Mean Corpuscular Volume 87.9 fL (81.0-99.0); Nucleated Red Blood Cells % 0 %; Platelet Count 126 10^3/uL (130-400); Red Cell Dist. Width 14.6 % (11.5-14.5)
--- NOTE | 2025-06-07 06:41 | W.PN.HOSP.TC ---
Addendum entered and electronically signed by Abelardo Beltran MD 06/07/25 21:49:
AVERY versus AVERY on CKD versus progressive CKD
Unknown baseline creatinine
Continues to produce urine well 600 to 700 cc output reported per nursing
Pierce urine with protein creat ratio 0.6
Nephrology recommends a paraproteinemia workup. However total protein 6.1 albumin 3.8 which equals 2.3. Therefore unlikely a paraproteinemia however can still check SPEP UPEP immunofixation kappa lambda light chains. HIV hepatitis C.
Unclear if this is related to herbal supplements that was previously used. Has not seen a physician within 20 years therefore unknown lab work at this time.
Without evidence of hyperkalemia acidemia uremia, no indications for renal replacement therapy at this time
May require hemodialysis in the very near future
Will repeat BMP in the a.m. to assess renal function again
Avoid nephrotoxins hypotension
Nephrology following
Ascites with IVC obstruction
-SAAG >1.1, follow up on cyto/culture
-Likely secondary to know IVC obstruction. Less likely peritoneal carcinomatosis as SAAG <1.[address] without evidenc
IVC obstruction
-Can further eval with full ultrasound of IVC or can get CTAP non con as renal function is high, would prefer with con but not feasible at this time
-CTAP showing b/l hydro and pelvic lesion 8 x 5.6cm leiomyomatous uterus concerning for possible malignancy
B/l hydro
-Place b.l PCN, IR consulted
Pelvic lesion
CEA and CA125
[employer] and [employer]-Onc consult
TVTP ultrasound order
Likely would benefit from inpatient Bx
Lytic lesion/lucent lesion of axial/proximal appendicular skeleton
-Likely metastatic lesion cannot exclude renal osteodyphrohy but suspect the former.
Normocytic anemia without evidence of acute blood loss anemia. Hemodynamically stable. Denies hematochezia, melena, hematuria, hemoptysis, epistaxis. Suspect likely related to anemia of renal disease/chronic disease as high ferritin.
-Transfuse to maintain hemoglobin greater than 7 per Tricc trial guidelines
- Repeat CBC 2 hours post transfusion completion
- Retransfuse if less than 7
HyperK
Lokelma
Low K diet
Original Note:
Today's Communication/Plan
-
Plan for bilateral nephrostomy tube placement for decompression of hydronephrosis, followed by pelvic ultrasound.
Consider hemodialysis if kidney function does not improve after nephrostomy tube placement.
Continue to monitor clinical status. Further gynecology/oncology workup to follow.
Assessment / Plan
Assessment / Plan
Patient is a 54-year-old female with no known past medical history who presented to the [facility] emergency department for evaluation of abnormal outpatient labs. The labs were completed after the patient attempted to establish care with
a PCP due to her fatigue, weight loss, abdominal bloating, early satiety, and solid stools since December of this year. [place] the [place] a few months ago after living in [facility] for 14 years. Patient's labs on presentation included
the following: Cr 5.3, BUN 79, K 6.2, AST 39, ALT 43, alk phos 161, and lipase 451.
#Renal failure
Trend Cr: 5.3 > 5.2 > 5.2 > 4.7 > 5.0 (eGFR 9.58). Stable, though still markedly elevated.
Etiology of renal failure likely obstruction related to pelvic mass found on CT
On presentation, patient reported bloating for the past 4 months
Patient reported she has not seen a physician in 20+ years
Patient appears euvolemic on exam, though she does have a mildly distended abdomen
Abdominal ultrasound (06/05): Per radiology, ascites, fatty liver, b/l renal collecting system dilatation, possible IVC thrombus.
Bladder scan (06/05): Per radiology, pelvic ascites.
IVC/iliac ultrasound: IVC and iliacs are patent
Paracentesis performed 06/06. SAAG approximately 2.1
CTAP 06/06: Per radiology, severe bilateral hydronephrosis without obstructing stone; 8.0 x 5.6 cm lobulated, minimally heterogenous lesion in the pelvis, possible malignancy; diffusely mixed lucent/lytic appearance of the axial and proximal
appendicular skeleton
Patient informed HD could be necessary, pending evaluation by nephrology
Plan for bilateral nephrostomy tube placement for treatment of hydronephrosis 2/2 suspected obstruction related to pelvic mass
Pelvic ultrasound to follow nephrostomy tube placement
Further gynecology/oncology workup to follow
Nephrology, urology, IR, [employer]-onc, gynecology following
#Anemia
Hgb 9.1, stable s/p 1 unit PRBCs (06/05)
Suspected 2/2 renal failure or chronic disease
Anemia workup: MCV 87.9�94.3, elevated ferritin (308)
Consider EPO stimulating agent if Hgb does not stabilize
No evidence of bleeding
Transfuse Hgb <7
#Hyperkalemia
Potassium 5.3 this morning, 6.2 on presentation
Lokelma ordered
Trend potassium: 6.2 > 5.3 > 4.8 > 6.0 >3 0.8 > 5.3
#Transaminitis
Mild elevations of LFTs, continue to monitor
LFTs not substantially changed from those on presentation
Abdominal ultrasound (06/05) as detailed above
DVT PPx: SC heparin
CODE STATUS: Full
Anticipated Discharge: > 48 hours
Subjective/Interval History
-
Date of Service: June 07, 2025
Patient is seen at the bedside on hospital day #3. Nursing reports NAEO. I discussed with the patient the CT findings from yesterday, which showed a pelvic mass concerning for malignancy. We discussed the purpose of nephrostomy tube placement in
the setting of her renal failure and pelvic mass. Patient is concerned about the effects nephrostomy tubes will have on the quality of her life. Patient said she has been urinating a lot in the past day and has had less bloating since fluid was
drained from her abdomen yesterday.
Objective Data
-
Labs:
Laboratory Results
06/06/25 06/07/25
21:04 06:03
WBC 4.4 L
Hgb 9.1 L
Hct 26.9 L
Plt Count 126 L
Sodium 137 Pending
Potassium 3.8 D Pending
Chloride 104 Pending
Carbon Dioxide 23 Pending
BUN 65 H Pending
Creatinine 4.7 H* Pending
Glucose 119 H Pending
Calcium 8.0 L Pending
Total Bilirubin Pending
AST Pending
ALT Pending
Alkaline Phosphatase Pending
Vital Signs:
Vital Signs
Temp Pulse Resp BP Pulse Ox
98.9 F 91 14 136/77 99
06/07/25 03:31 06/07/25 03:31 06/07/25 03:31 06/07/25 03:31 06/07/25 03:31
I&O
06/05/25 06/06/25 06/07/25
06:59 06:59 06:59
Intake Total 730 / 730 1320 / 1320
Output Total 1875 / 1875 2125 / 2125
Balance -1145 / -1145 -805 / -805
Review of Systems
-
History Source: Patient
Constitutional: Denies Fever, Fatigue or Chills
Respiratory: Denies Trouble Breathing
Cardiac: Denies Chest Pain or Palpitations
Abdomen/GI: Denies Abdominal Pain, Nausea, Vomiting, Diarrhea or Constipated
Genitourinary: Reports Other (Urinating a lot over the past day); Denies Flank Pain
Musculoskeletal: Denies Edema
Neuro: Denies Headache, Weakness, Numbness or Lightheadedness
Physical Exam
-
General: Well Developed, Well Nourished, No Apparent Distress, Comfortable and Conversant
HEENT: Normocephalic and Atraumatic
Respiratory: Clear to Auscultation and Non Labored Respirations; Negative Wheezes or Crackles
Cardiac: Regular Rhythm and S1/S2; Negative Murmur, Rub, Gallop, Tachycardic or Bradycardic
GI: Soft, Nontender and Distended (Less distended than recent days)
Genito-urinary: Negative Costovertebral Angle Tend
Musculoskeletal: No Cyanosis and No Edema
Skin: Warm and Dry
Neuro: AO x 3
Psych: Calm
[2025-06-07 06:54] LABS: ALT (SGPT) 56 U/L (0-35); AST (SGOT) 50 U/L (14-36); Albumin 3.9 g/dl (3.5-5.0); Alkaline Phosphatase 153 U/L (38-126); Blood Urea Nitrogen 63 mg/dl (7-17); Calcium 8.6 mg/dl (8.4-10.2); Carbon Dioxide 22 mmol/L (22-30); Chloride 109 mmol/L (98-107); Estimated Creatinine Clearance 10 ml/min; Glucose 108 mg/dl (70-99); Potassium 5.3 mmol/L (3.5-5.1); Sodium 139 mmol/L (135-145); Total Protein 6.3 g/dl (6.3-8.2); eGFR 9.58
[2025-06-07] MEDS: HEPARIN SC (09:59)
[2025-06-07] MEDS: NORVASC 5 MG PO (09:59)
[2025-06-07 11:59] LABS: CEA 8.46 ng/ml
[2025-06-07 12:02] LABS: CA 125 419 U/mL (0-35)
--- NOTE | 2025-06-07 13:00 | W.CON.GYNONC ---
Consultation
-
Date/Time Consultation Requested: 06/07/2025
Date/Time Consultation Performed: 06/08/2025
Performing Provider: Cesar Murrell
Reason for Consultation: Pelvic Mass
Chief Complaint
-
abdominal discomfort, not feeling well
History of Present Illness
54-year-old -0-2-0 white female who is sent to the emergency room 2 days ago by her primary physician after an initial visit in the office at which time abnormal labs including severe anemia and elevated creatinine level And potassium greater
than 6 was encountered. The patient has lived outside of in [facility] for approximately 14 years and has returned back over the last 4 months and appears to be living with her sisters in [facility]. For the last few months she
has not been feeling well complaining of abdominal discomfort and general feeling of malaise and fatigue, attributing it possibly to a parasite infection. She has not sought medical attention for over 10 years. After arrival to the hospital and
evaluation in the emergency room and admission patient has been transfused with 1 unit packed red blood cell, CT scan wo contrast revealed evidence of ascites and a suspected pelvic mass, she has undergone paracentesis for 1000 cc, cytology is
pending. She was evaluated by nephrology and urology and decision was made to proceed with bilateral percutaneous nephrostomy placements yesterday. I was asked to evaluate the patient for possibility of a gynecologic malignancy. As I was unable to
see the patient yesterday I had requested consultation from gynecology service for basic gynecologic evaluation.
Past Medical History
Past Medical History: None prior to this admission
Past Surgical History:
Laparoscopy for ectopic
Laparoscopy for right ovary cyst during IVF and Endometriosis
Excision of left breast fibroadenoma
[employer] History:
Menarche 13
Menopause 46
menses regular 3-5 days.
reports no bleeding after age 46
sexual activity has been difficult and painful due to atrophy
Has not seen [facility] for at least 15 years
Had 3 IVF attempts
Ectopic
D&E for termination
Social History
Tobacco: Non-smoker
Alcohol: Occasional (Rare)
Drug: Marijuana (THC 1-2 times per week.)
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
Currently watches sister's children
Family History
Family History: Diabetes, Hypertension and Other (Thyroid disease)
sister with thyroid ca
Allergies
Allergy/AdvReac Type Severity Reaction Status Date / Time
No Known Allergies Allergy Unverified 06/04/25 18:51
Home Medications
ascorbic acid (vitamin C) 250 mg tablet (Vitamin C) 250 mg PO DAILY 06/04/25
calcium carbonate (Tums Extra Strength Smoothies) 600 - 900 mg PO DAILYPRN PRN stomach upset 06/04/25
Medical History
Social History
Tobacco: Non-smoker
Alcohol: Occasional
Drug: Marijuana
Personal: Single
Living: With Family
Allergies
Allergies reflect when allergies were last updated in [facility].
No Known Allergies Allergy (Unverified 06/04/25 18:51)
Physical Exam
Vital Signs / I&O
Vitals
Temp Pulse Resp BP Pulse Ox
98.5 F 90 13 140/89 100
06/07/25 12:53 06/07/25 12:53 06/07/25 12:53 06/07/25 12:53 06/07/25 12:53
I&O
06/05/25 06/06/25 06/07/25 06/08/25
06:59 06:59 06:59 06:59
Intake Total 730 / 730 1320 / 1320
Output Total 1874 / 1874
Balance -1145 / -1145 -805 / -805
Physical Exam
General: No Apparent Distress, Comfortable and Other (underweight, cachectic)
HEENT: Normocephalic, Moist Mucous Membranes, Good Dentition and PERRLA
Respiratory: Clear and Non Labored Respirations
Cardiac: S1/S2 and Regular Rhythm
Breast: Other (Both breasts have normal nipple, there is no dominant mass except there is a 2 cm fixed lesion involving medial aspect of the left breast, patient reports this has been biopsied previously and proved to be fibroadenoma, there is no
axillary adenopathy. There is no nipple discharge)
GI: Soft, Non Tender, Non Distended and No Hepatosplenomegaly
Genito-urinary: No Costovertebral Tend and Other (bilateral PCN present)
External Genitalia: Normal Urethra and Normal Labia
Vagina: Normal Mucosa
Cervix: Normal and No Lesion Seen
Uterus: Other (Bimanual examination reveals a firm mass irregular shaped just off the midline on the right side, I suspect it is her ovary, uterus appears to be small in the midline, I cannot detect any parametrial disease, there is no sidewall
nodularity)
Rectal: Normal Mucosa and Other (palpable mass in cul de sac as above)
Musculoskeletal: No Clubbing, No Cyanosis and No Edema
Skin: Warm and Dry
Neuro: Awake, Alert, Oriented and No Motor Deficits
Hematologic/Lymphatic: No Lymphadenopathy
Psych: Calm and Intact Judgement
Results
-
06/07/25 06:03
06/07/25 06:03
[facility]
[address] [place] [id number]
[phone]
Patient Name: ANDREW TOBIAS
: 1970
Unit Number: [id number]
Age/Sex: 54/F
Patient
Location: [facility]
Order Provider: Analisa South MD
Exam Service Date: 06/06/25

Diagnostic Imaging Report
SignedOrder #:[id number]
Exams: CT Abd/pelvis Wo Iv Cont
Technique: CT abdomen and pelvis without intravenous contrast.
INDICATION: AVERY, dilated collecting system.
COMPARISON: Abdominal ultrasound 06/05/2025
FINDINGS:
Lung bases:
Trace bilateral pleural effusions with adjacent atelectasis. Hypoattenuation of the blood pool.
ABDOMEN:
Liver: Unremarkable unenhanced appearance.
Gallbladder: Hyperdense, possibly secondary to sludge or vicarious excretion of contrast.
Bile duct: No dilatation.
Pancreas: Not well visualized.
Spleen: Normal in size.
Adrenal glands: No mass.
Kidneys: Severe bilateral hydronephrosis. There are no renal calculi.
Retroperitoneum: No aneurysm. No adenopathy or mass.
Peritoneum: Small/moderate volume ascites.
Bowel: No evidence of bowel obstruction.
Anterior abdominal wall: No hernia.
Vessels: There is no evidence of aortic aneurysm.
Pelvis:
There is a 8.0 x 5.6 cm lobulated lesion within the pelvis.. The bladder is decompressed with Manzo catheter.
Osseous review:
No suspicious osseous lesions. Mixed lytic and sclerotic appearance of the bones throughout the axial and proximal appendicular skeleton.
IMPRESSION:
There is severe bilateral hydronephrosis without obstructing stone. There is a 8.0 x 5.6 cm lobulated, minimally heterogeneous lesion in the pelvis. While a leiomyomatous uterus is possible this is concerning for possible malignancy given additional
findings. Recommend dedicated pelvic ultrasound for further evaluation.
Diffusely mixed lucent/lytic appearance of the axial and proximal appendicular skeleton concerning for diffusely osseous metastatic disease over renal osteodystrophy.
Small/moderate volume ascites.
Hypoattenuation of the mediastinal blood pool suggestive of anemia.
Electronically signed by Sheldon Baxter MD, 06/06/2025 5:13 PM
Dictated By: Sheldon Baxter MD
Dictated Date & Time: 06/06/25 1654

[facility]
[address] [place] [address]
[phone]
Patient Name: ANDREW TOBIAS
: 1970
Unit Number: [id number]
Age/Sex: 54/F
Patient
Location: [address] [place] [address]
Order Provider: Waldemar Crocker MD
Exam Service Date: 06/07/25

Diagnostic Imaging Report
SignedOrder #:[id number]
Exams: US Pelvis W Transvag Combined
CPT: 37127, 22290
PROCEDURE: US Pelvis W Transvag Combined
CLINICAL INDICATION: Pelvic mass. Renal failure. Hyperkalemia. Anemia.
TECHNIQUE: A transabdominal and transvaginal ultrasound examination of the pelvis was performed. Cine images were obtained during the examination.
COMPARISON: Comparison is made with a CT examination of the abdomen and pelvis performed 06/06/2025.
FINDINGS:
There is an irregular shaped 5.3 x 5.7 x 5.5 cm solid soft tissue mass in the pelvis which has lobular margins. The mass demonstrates internal vascularity on color duplex evaluation. The mass is surrounded by a moderate amount of pelvic ascites.
There are no normal-appearing ovaries and no normal-appearing uterus identified.
IMPRESSION:
1. 5.7 cm IRREGULAR SHAPED SOLID SOFT TISSUE MASS in the center of the pelvis surrounded by MODERATE ASCITES. Diagnostic possibilities are (1) a malignant soft tissue mass or (2) less likely small bowel loops tethered centrally secondary to
scarring.
2. No normal uterus or ovaries identified.
Electronically signed by Joe Brown MD, 06/07/2025 10:06 PM
Impression / Plan
-
# Pelvic Mass
This patient has a complex vascular mass based on ultrasound in the pelvis in association with ascites. Cytology of the ascites is pending. Protein level in ascites is elevated which can be seen in association with malignancy. LDH seems low and
favors benign nonmalignant ascites. CA125 and CEA are both elevated, the ratio is greater than 25 favoring potentially a gynecologic malignancy however CA125 elevation can be seen whenever there is any ascites or pleural effusion present and can be
nonspecific.
- Ideally I would like a MRI of the pelvis for better delineation of pelvic organs however this study should be done with and without contrast and we should await to perform this when her creatinine level is improved
- Patient requires probably an exam under anesthesia for Pap smear as well as evaluation of endometrial canal D&C to exclude cervical or endometrial pathology. This can be done in the office setting as well. She does not currently have insurance
and office visits may be challenging
-Consideration must be given that ovarian mass may be primary gynecologic cancer but it could also be a metastasis from a separate primary.
# Bone lesions on CT
Consider formal nuclear medicine whole-body bone scan for further evaluation. It is unclear to me is whether these lesions are truly lytic abnormalities or not if malignancy is confirmed on the nuclear medicine scan the highest likelihood of a
malignant process is breast cancer it is unusual for gynecologic malignancy to present with bone metastasis
#breast mass (left)
formal mammogram and repeat biopsy of the mass in medial aspect of left breast needs done. I am concerned about breast cancer. consult Breast surgery
#Renal failure
she is s/p b/l PCN, with post obstructive diuresis, little bloody but expected.
Cr: 5.3 > 5.2 (eGFR 9.14), now s/p PCN b/l, Cr 4.4
K stable
#Anemia
improved since admission due to transfusion, now hgb is 9
check folate, ferritin high, probably due to renal failure
#Hyperkalemia
resolved
#Transaminitis
Mild elevations, trivial
#Elevated BNP, prob due to anemia causing chf, PLEASE CHECK echo, Formal cardiology eval for potential operative clearance
Cesar Murrell MD
[facility]
[phone]
--- NOTE | 2025-06-07 14:05 | W.PN.NEPH.PH ---
Today's Communication / Plan
-
Follow-up BMP
Bilateral percutaneous nephrostomy tubes placed today for hydronephrosis
As needed Lokelma
Assessment/Plan
-
IMP:
Renal Failure -AVERY vs CKD
Hyperkalemia
Non-Gapped Metabolic Acidosis
Abnormal LFTs
Normocytic Anemia
Elevated BPs
Mild hyperphosphatemia
Plan:
A/w abnormal labs, high cr
AVERY vs CKD-no baseline to compare
cr no change still : remains non oliguric
for Bilateral PCNs today re: obstruction
As needed Lokelma for hyperkalemia
given anemia check paraprotein w/u , suspect it is likely CKD than AVERY
UA bland, 1+alb and U PCR 577mg/gm of cr
US shows marked bilateral renal collecting system dilation right Ureteral jet not seen -dobbs placed, checked CT abd with out contrast
also new ascites and diffuse fatty liver
BNP is high likely need echo, remains off IVF
no emergent need of dialysis
BP stable on CCB
Anemia-hb stable post PRBC fe sat 19%, ferritin slightly up at 308-likely anemia of CKD
she will need insurance set up
renal diet
avoid nephrotoxins , no h/o NSAIDs
follow LFTs
-
-
Date of Service: June 07, 2025
CC / HPI / ROS
-
Chief Complaint:
AVERY
History of Present Illness:
cr no cahnge at 5,
Hyperkalemia persist
met acidosis better bicarb 22
BP stable
s/p paracentesis 1.1
no fever
Review of Systems:
feels better post para
no cp or sob
Labs
-
Labs:
WBC 4.4 10^3/uL (4.8-10.8) L 06/07/25 06:03
RBC 3.06 10^6/uL (4.20-5.40) L 06/07/25 06:03
Hgb 9.1 g/dL (12.0-16.0) L 06/07/25 06:03
Hct 26.9 % (37.0-47.0) L 06/07/25 06:03
Plt Count 126 10^3/uL (130-400) L 06/07/25 06:03
Sodium 139 mmol/L (135-145) 06/07/25 06:03
Potassium 5.3 mmol/L (3.5-5.1) H D 06/07/25 06:03
Chloride 109 mmol/L (98-107) H 06/07/25 06:03
Carbon Dioxide 22 mmol/L (22-30) 06/07/25 06:03
BUN 63 mg/dl (7-17) H 06/07/25 06:03
Creatinine 5.0 mg/dL (0.6-1.0) H* 06/07/25 06:03
eGFR 9.58 06/07/25 06:03
Glucose 108 mg/dl (70-99) H 06/07/25 06:03
Calcium 8.6 mg/dl (8.4-10.2) 06/07/25 06:03
Phosphorus 5.6 mg/dl (2.5-4.5) H 06/05/25 05:29
Yis-U-Mfeeefkayqf Pept 1720 pg/ml 06/05/25 05:29
Albumin 3.9 g/dl (3.5-5.0) 06/07/25 06:03
Physical Exam
-
Vital Signs:
Vital Signs
Temp Pulse Resp BP Pulse Ox
98.5 F 90 13 140/89 100
06/07/25 12:53 06/07/25 12:53 06/07/25 12:53 06/07/25 12:53 06/07/25 12:53
--- NOTE | 2025-06-07 14:15 | PTCARENOTE ---
GERRI RN- reviewed care of B/L PCNs with patient prior to procedure. drainage tube care instruction sheet sent to floor with patient and patients chart.
--- NOTE | 2025-06-07 14:22 | W.PN.UPDATE ---
Update Note
Progress Note Update
- Successful placement of bilateral PCNs with return of clear urine
- Several bilateral hydronephrosis.
- 8.5F tubes placed bilaterally. Tube orders placed.
--- NOTE | 2025-06-07 15:30 | W.PN.URO.CBU ---
Today's Communication / Plan
-
Maintain PCNs to gravity
F/U nephrology recs
Workup for source of obstruction
Assessment / Plan
-
54F with severe bilateral hydronephrosis, pelvic mass, ascites, weight loss, acute vs chronic renal failure
s/p b/l percutaneous nephrostomy placement 06/07/25
Bilateral ureteral obstruction of unclear nature - would suspect large pelvic mass as the cause but ureters are not grossly dilated. Bilateral UPJ obstruction from benign retroperitoneal fibrosis or metastatic malignancy is anternative possibility
Will require additional evaluation/management, likely to be done on outpatient basis but dependent on additional findings of inpatient workup
Needs further workup of pelvic mass and bone lesions to rule out malignancy
Bladder US shows normal bladder wall without intramural mass, normal UA - very low suspicion for primary urologic malignancy
No urinary retention on renal US
Removey removed and voided without difficulty prior to PCNs
She may or may not void at all now post nephrostomy placement
Diagnosis
-
Date of Service: June 07, 2025
-
Patient Diagnosis:
bilateral hydronephrosis
elevated creatinine
pelvic mass
ascites
Post Op Day:
Subjective
-
s/p b/l PCN placement today
Minimal pain post procedure
Objective
-
Vital Signs
Temp Pulse Resp BP Pulse Ox
98.5 F 77 12 136/94 100
06/07/25 12:53 06/07/25 14:15 06/07/25 14:15 06/07/25 14:15 06/07/25 14:15
Intake and Output
06/06/25 06/07/25 06/08/25
06:59 06:59 06:59
Intake Total 730 / 730 1320 / 1320
Output Total 1875 / 1875 2125 / 2125
Balance -1145 / -1145 -805 / -805
Intake:
Oral fluids 480 / 480 1320 / 1320
Blood Product Amount Infused ( 250 / 250
mL)
Packed Rbc Leukoreduced Unit 250 / 250
[id number]
Output:
Urine, Manzo 775 / 775 275 / 275
Urine, Voided 1100 / 1100 1850 / 1850
Other:
How many times incontinent 1
MODERATE amount urine
Laboratory Results
06/07/25 06:03
06/07/25 06:03
Physical Exam
-
General - well developed, well nourished, no acute distress
Chest - clear bilaterally
Abdomen - soft, non-tender
b/l PCNs in place clear or light pink
Skin - warm & dry with no rash
Neuro - AOx3, no motor deficits
Extremities - no clubbing, no cyanosis, no edema
Incision - clean, dry
Dressing - clean, dry, intact
[2025-06-07] MEDS: LOKELMA 5 GRAM PO (15:38)
[2025-06-07] MEDS: PERCOCET 5/325 1 TABLET PO (17:27)
[2025-06-07] MEDS: HEPARIN 5000 UNITS SC (22:15)
--- NOTE | 2025-06-07 22:22 | CON.MD ---
Consultation - Medical
-
Consult: pelvic mass
HPI: Patient is a 54yo who presented to the ED after abnormal outpatient blood work. Patient reports that she was living in [facility] for the last 14 years and was healthy. Starting 4 months ago, she noticed abdominal bloating that she
contributed to parasites. She says her bowel movements have been somewhat normal. She does not know the last time she saw a SLED MAKER. She has a history of endometriosis and previously underwent fertility treatments. She has never had a diagnosis of
uterine fibroids. She has also noted weight loss and fatigue. On outpatient labs she was noted to have an elevated creatinine and liver enzymes. She also has normocytic anemia. She had hypertension in the ED. She reports prior to this she has always
had low blood pressure. Abdominal US showed ascites and bilateral hydronephrosis. She had a paracentesis by IR. Today, she had bilateral nephrostomy tubes placed for severe hydronephrosis. Urology is following. Nephrology also following for AVERY/CKD.
Today, CT scan showed an 8.0x5.6cm lobulated, minimally heterogenous lesion in the pelvis with concern for possible malignancy. There was also possible diffusely osseous metastatic disease.
PMHx: endometriosis
Meds: denies
Surghx: lap left salpingectomy for ectopic - had excision of endometriosis at the time, removal of left breast fibroadenoma
NKDA
Socialhx: occ etoh use, +THC use, denies tobacco use
Famhx: non-contributory
OBHx: EABx1, ectopic w/ left salpingectomy
Gynhx: menopause at age 46, denies PMB, has not seen a SLED MAKER in 20+yrs, denies history of abnormal Pap smears
O:
BP 109/72, VSS
General: well appearing, thin
Cardio: regular
Pulm: no increased work of breathing
Abd: soft, nontender, moderate distension, no masses palpated
Ext: nontender
Pelvic US
FINDINGS:
There is an irregular shaped 5.3 x 5.7 x 5.5 cm solid soft tissue mass in the pelvis which has lobular margins. The mass demonstrates internal vascularity on color duplex evaluation. The mass is surrounded by a moderate amount of pelvic ascites.
There are no normal-appearing ovaries and no normal-appearing uterus identified.
IMPRESSION:
1. 5.7 cm IRREGULAR SHAPED SOLID SOFT TISSUE MASS in the center of the pelvis surrounded by MODERATE ASCITES. Diagnostic possibilities are (1) a malignant soft tissue mass or (2) less likely small bowel loops tethered centrally secondary to
scarring.
2. No normal uterus or ovaries identified.
A/P: Patient is a 54yo who presents with bilateral hydronephrosis, AVERY vs AVERY on CKD, normocytic anemia, ascites, and pelvic mass
- CT A/P and pelvic US reviewed. Pelvic mass present with concern for malignancy. Possible bone mets present on CT. Recommend pelvic MRI for further evaluation
- CA-125 elevated-419; CEA normal-8.46
- Recommend research assistant member/onc evaluation
[2025-06-08 03:44] VITALS: BP 135/78
[2025-06-08 06:00] VITALS: BMI 17.8
[2025-06-08] MEDS: NORVASC 5 MG PO (08:27)
[2025-06-08 08:31] VITALS: BP 125/79
[2025-06-08 08:33] LABS: Hematocrit 29.7 % (37.0-47.0); Hemoglobin 9.7 g/dL (12.0-16.0); Mean Corp Hgb Conc. 32.7 g/dL (33.0-37.0); Mean Corpuscular Volume 89.5 fL (81.0-99.0); Platelet Count 155 10^3/uL (130-400); Red Cell Dist. Width 14.5 % (11.5-14.5)
[2025-06-08] MEDS: HEPARIN SC (08:42)
[2025-06-08] MEDS: ZOFRAN 4 MG IV (08:48)
[2025-06-08] MEDS: PERCOCET 5/325 1 TABLET PO (08:49)
[2025-06-08 09:02] LABS: Blood Urea Nitrogen 58 mg/dl (7-17); Calcium 8.8 mg/dl (8.4-10.2); Carbon Dioxide 23 mmol/L (22-30); Chloride 103 mmol/L (98-107); Estimated Creatinine Clearance 11 ml/min; Glucose 107 mg/dl (70-99); Potassium 4.8 mmol/L (3.5-5.1); Sodium 135 mmol/L (135-145); eGFR 11.17
[2025-06-08 11:00] VITALS: BP 123/81
--- NOTE | 2025-06-08 12:30 | W.PN.NEPH.PH ---
Today's Communication / Plan
-
Follow daily BMP
Status post bilateral percutaneous nephrostomy tube
Eventual uterine mass biopsy and MRI (gadolinium can be utilized)
Assessment/Plan
-
IMP:
Renal Failure -AVERY vs CKD
Hyperkalemia
Non-Gapped Metabolic Acidosis
Abnormal LFTs
Normocytic Anemia
Elevated BPs
Mild hyperphosphatemia
Plan:
A/w abnormal labs, high cr
AVERY vs CKD-no baseline to compare
Creatinine down to 4.4 with potassium of 4.8
remains grossly non oliguric via bilateral percutaneous nephrostomy tubes left greater than right
Status post bilateral PCNs 06/07/25 re: obstruction
As needed Lokelma for hyperkalemia
given anemia check paraprotein w/u , suspect it is likely CKD than AVERY
UA bland, 1+alb and U PCR 577mg/gm of cr
US demonstrated marked bilateral renal collecting system dilation right Ureteral jet not seen -dobbs placed, checked CT abd with out contrast
also new ascites and diffuse fatty liver
no emergent need of dialysis
BP stable on CCB
Anemia-hb stable post PRBC fe sat 19%, ferritin slightly up at 308-likely anemia of CKD
she will need insurance set up
renal diet
avoid nephrotoxins , no h/o NSAIDs
follow LFTs
-
-
Date of Service: June 08, 2025
CC / HPI / ROS
-
Chief Complaint:
AVERY
History of Present Illness:
cr down to 4.4
met acidosis better bicarb 23
BP stable
s/p paracentesis 1.1
no fever
Review of Systems:
feels better post para
no cp or sob
Bilateral nephrostomy tubes
Labs
-
Labs:
WBC 4.8 10^3/uL (4.8-10.8) 06/08/25 07:30
RBC 3.32 10^6/uL (4.20-5.40) L 06/08/25 07:30
Hgb 9.7 g/dL (12.0-16.0) L 06/08/25 07:30
Hct 29.7 % (37.0-47.0) L 06/08/25 07:30
Plt Count 155 10^3/uL (130-400) D 06/08/25 07:30
Sodium 135 mmol/L (135-145) 06/08/25 07:30
Potassium 4.8 mmol/L (3.5-5.1) 06/08/25 07:30
Chloride 103 mmol/L (98-107) 06/08/25 07:30
Carbon Dioxide 23 mmol/L (22-30) 06/08/25 07:30
BUN 58 mg/dl (7-17) H 06/08/25 07:30
Creatinine 4.4 mg/dL (0.6-1.0) H* 06/08/25 07:30
eGFR 11.17 06/08/25 07:30
Glucose 107 mg/dl (70-99) H 06/08/25 07:30
Calcium 8.8 mg/dl (8.4-10.2) 06/08/25 07:30
Phosphorus 5.6 mg/dl (2.5-4.5) H 06/05/25 05:29
Asd-B-Hwqsadwwcwr Pept 1720 pg/ml 06/05/25 05:29
Albumin 3.9 g/dl (3.5-5.0) 06/07/25 06:03
Physical Exam
-
Vital Signs:
Vital Signs
Temp Pulse Resp BP Pulse Ox
97.8 F 80 12 123/81 100
06/08/25 11:00 06/08/25 11:00 06/08/25 11:00 06/08/25 11:06/08/25 11:00
Cardiovascular:: Regular rate and rhythm
Respiratory:: Bilateral: CTA
Lung Excursion:: Normal
Abdomen:: Nontender and Soft
Bowel Sounds:: Normal
Extremity Edema:: None: Bilateral:
Dobbs Catheter: No
Other Findings::
Bilateral nephrostomy tubes
--- NOTE | 2025-06-08 13:42 | W.PN.HOSP.TC ---
Today's Communication/Plan
-
Assessment / Plan
Assessment / Plan
AVERY versus AVERY on CKD versus progressive CKD
Unknown baseline creatinine
Continues to produce urine well 600 to 700 cc output reported per nursing
[place] urine with protein creat ratio 0.6
Nephrology recommends a paraproteinemia workup. However total protein 6.1 albumin 3.8 which equals 2.3. Therefore unlikely a paraproteinemia however can still check SPEP UPEP immunofixation kappa lambda light chains. HIV hepatitis C.
Unclear if this is related to herbal supplements that was previously used. Has not seen a physician within 20 years therefore unknown lab work at this time.
Without evidence of hyperkalemia acidemia uremia, no indications for renal replacement therapy at this time
May require hemodialysis in the very near future
Will repeat BMP in the a.m. to assess renal function again
Avoid nephrotoxins hypotension
Nephrology following
Ascites with IVC obstruction
-SAAG >1.1, follow up on cyto/culture
-Likely secondary to know IVC obstruction. Less likely peritoneal carcinomatosis as SAAG <1.[address] without evidenc
IVC obstruction
-Can further eval with full ultrasound of IVC or can get CTAP non con as renal function is high, would prefer with con but not feasible at this time
-CTAP showing b/l hydro and pelvic lesion 8 x 5.6cm leiomyomatous uterus concerning for possible malignancy
B/l hydro
-PCN's b/l
Pelvic lesion
CEA normal and CA125 high
CONGRESSIONAL REPRESENTATIVE and CONGRESSIONAL REPRESENTATIVE-Onc consult
TVTP completed
Likely would benefit from inpatient Bx
Lytic lesion/lucent lesion of axial/proximal appendicular skeleton
-Likely metastatic lesion cannot exclude renal osteodyphrohy but suspect the former.
Normocytic anemia without evidence of acute blood loss anemia. Hemodynamically stable. Denies hematochezia, melena, hematuria, hemoptysis, epistaxis. Suspect likely related to anemia of renal disease/chronic disease as high ferritin.
-Transfuse to maintain hemoglobin greater than 7 per Tricc trial guidelines
- Repeat CBC 2 hours post transfusion completion
- Retransfuse if less than 7
HyperK
Lokelma
Low K diet
Anticipated Discharge: > 48 hours
Subjective/Interval History
-
Date of Service: June 08, 2025
Seen and examined. No new complaints. No acute overnight events.
Feeling better
Has bilateral PCNs
Objective Data
-
Labs:
Laboratory Results
06/08/25
07:30
WBC 4.8
Hgb 9.7 L
Hct 29.7 L
Plt Count 155 D
Sodium 135
Potassium 4.8
Chloride 103
Carbon Dioxide 23
BUN 58 H
Creatinine 4.4 H*
Glucose 107 H
Calcium 8.8
Vital Signs:
Vital Signs
Temp Pulse Resp BP Pulse Ox
97.8 F 80 12 123/81 100
06/08/25 11:00 06/08/25 11:00 06/08/25 11:00 06/08/25 11:00 06/08/25 11:00
I&O
06/07/25 06/08/25 06/09/25
06:59 06:59 06:59
Intake Total 1320 / 1320
Output Total 2125 / 2125 1370 / 1370 500 / 500
Balance -805 / -805 -1370 / -1370 -500 / -500
Physical Exam
-
General: Well Developed, Well Nourished and No Apparent Distress
HEENT: Normocephalic and Atraumatic
Respiratory: Clear to Auscultation
Cardiac: Regular Rhythm
GI: Soft, Nontender and Nondistended
Genito-urinary: No Costovertebral Tender and Bloody Urine (b/l pcn's)
Neuro: Awake, Alert, Oriented and AO x 3
Psych: Calm
--- NOTE | 2025-06-08 15:53 | W.PN.OBG.DWH ---
Today's Communication / Plan
-
will signoff for now
Assessment/Plan
-
pelvic mass
elevated ca 125
s/p thoracentesis
nephrostomy placement
Subjective Data
-
no complaints
[facility]
Objective Data
-
Laboratory Results
06/08/25 07:30
06/08/25 07:30
Vital Signs
Temp Pulse Resp BP Pulse Ox
97.8 F 80 12 123/81 100
06/08/25 11:00 06/08/25 11:00 06/08/25 11:00 06/08/25 11:00 06/08/25 11:00
[2025-06-08 16:05] VITALS: BP 120/74
[2025-06-08 19:00] VITALS: BP 117/78
[2025-06-08] MEDS: HEPARIN 5000 UNITS SC (21:23)
[2025-06-08 23:00] VITALS: BP 116/70
[2025-06-09 03:00] VITALS: BP 119/76
[2025-06-09 04:53] VITALS: BMI 17.8
[2025-06-09 07:38] VITALS: BP 127/87
[2025-06-09 08:03] LABS: Blood Urea Nitrogen 56 mg/dl (7-17); Calcium 8.7 mg/dl (8.4-10.2); Carbon Dioxide 22 mmol/L (22-30); Chloride 104 mmol/L (98-107); Estimated Creatinine Clearance 12 ml/min; Glucose 113 mg/dl (70-99); Potassium 5.1 mmol/L (3.5-5.1); Sodium 134 mmol/L (135-145); eGFR 12.53
[2025-06-09] MEDS: NORVASC 5 MG PO (08:41)
[2025-06-09] MEDS: HEPARIN 5000 UNITS SC ×2 (08:45→20:55)
[2025-06-09 09:09] LABS: Folate 7.9 ng/ml (2.76-20); Vitamin B12 > 1000 pg/ml (239-931)
[2025-06-09 11:27] VITALS: BP 117/68
--- NOTE | 2025-06-09 11:45 | W.PN.NEPH.PH ---
Today's Communication / Plan
-
Follow BMP
No dialysis requirement at this time
Assessment/Plan
-
IMP:
Renal Failure -AVERY vs CKD
Hyperkalemia
Non-Gapped Metabolic Acidosis
Abnormal LFTs
Normocytic Anemia
Elevated BPs
Mild hyperphosphatemia
Plan:
A/w abnormal labs, high cr
AVERY vs CKD-no baseline to compare
Creatinine down to 4 with potassium of 5.1
remains grossly non oliguric via bilateral percutaneous nephrostomy tubes left greater than right
Status post bilateral PCNs 06/07/25 re: obstruction
As needed Lokelma for hyperkalemia
For uterine mass biopsy this week
given anemia check paraprotein w/u , suspect it is likely CKD than AVERY
UA bland, 1+alb and U PCR 577mg/gm of cr
US demonstrated marked bilateral renal collecting system dilation right Ureteral jet not seen -dobbs placed, checked CT abd with out contrast
also new ascites and diffuse fatty liver
no emergent need of dialysis
BP stable on CCB
Anemia-hb stable post PRBC fe sat 19%, ferritin slightly up at 308-likely anemia of CKD
she will need insurance set up
renal diet
avoid nephrotoxins , no h/o NSAIDs
follow LFTs
-
-
Date of Service: June 09, 2025
CC / HPI / ROS
-
Chief Complaint:
AVERY
History of Present Illness:
cr down to 4.
met acidosis better bicarb 23
BP stable
s/p paracentesis 1.1
no fever
Review of Systems:
feels better post para
no cp or sob
Bilateral nephrostomy tubes: non oliguric L>R
Labs
-
Labs:
WBC 4.8 10^3/uL (4.8-10.8) 06/08/25 07:30
RBC 3.32 10^6/uL (4.20-5.40) L 06/08/25 07:30
Hgb 9.7 g/dL (12.0-16.0) L 06/08/25 07:30
Hct 29.7 % (37.0-47.0) L 06/08/25 07:30
Plt Count 155 10^3/uL (130-400) D 06/08/25 07:30
Sodium 134 mmol/L (135-145) L 06/09/25 07:01
Potassium 5.1 mmol/L (3.5-5.1) 06/09/25 07:01
Chloride 104 mmol/L (98-107) 06/09/25 07:01
Carbon Dioxide 22 mmol/L (22-30) 06/09/25 07:01
BUN 56 mg/dl (7-17) H 06/09/25 07:01
Creatinine 4.0 mg/dL (0.6-1.0) H 06/09/25 07:01
eGFR 12.53 06/09/25 07:01
Glucose 113 mg/dl (70-99) H 06/09/25 07:01
Calcium 8.7 mg/dl (8.4-10.2) 06/09/25 07:01
Phosphorus 5.6 mg/dl (2.5-4.5) H 06/05/25 05:29
Tor-R-Ihstniqbsfu Pept 1720 pg/ml 06/05/25 05:29
Albumin 3.9 g/dl (3.5-5.0) 06/07/25 06:03
Physical Exam
-
Vital Signs:
Vital Signs
Temp Pulse Resp BP Pulse Ox
98.7 F 92 16 117/68 97
06/09/25 11:27 06/09/25 11:27 06/09/25 11:27 06/09/25 11:27 06/09/25 11:27
Cardiovascular:: Regular rate and rhythm
Respiratory:: Bilateral: CTA
Lung Excursion:: Normal
Abdomen:: Nontender and Soft
Bowel Sounds:: Normal
Extremity Edema:: None: Bilateral:
Dobbs Catheter: No
Other Findings::
Bilateral nephrostomy tubes
[2025-06-09 15:17] VITALS: BP 117/76
--- NOTE | 2025-06-09 15:18 | W.PN.HOSP.TC ---
Today's Communication/Plan
-
Assessment / Plan
Assessment / Plan
General: Well Developed, Well Nourished and No Apparent Distress
HEENT: Normocephalic and Atraumatic
Respiratory: Clear to Auscultation
Cardiac: Regular Rhythm
GI: Soft, Nontender and Nondistended
Genito-urinary: No Costovertebral Tender and Bloody Urine (b/l pcn's)
Neuro: Awake, Alert, Oriented and AO x 3
Psych: Calm
AVERY versus AVERY on CKD versus progressive CKD
Unknown baseline creatinine
[place] urine with protein creat ratio 0.6
Nephrology recommends a paraproteinemia workup. However total protein 6.1 albumin 3.8 which equals 2.3. Therefore unlikely a paraproteinemia however can still check SPEP UPEP immunofixation kappa lambda light chains. HIV hepatitis C.
Unclear if this is related to herbal supplements that was previously used. Has not seen a physician within 20 years therefore unknown lab work at this time.
Without evidence of hyperkalemia acidemia uremia, no indications for renal replacement therapy at this time
May require hemodialysis in the very near future
Will repeat BMP in the a.m. to assess renal function again
Avoid nephrotoxins hypotension
Nephrology following
Ascites with IVC obstruction
-SAAG >1.1, follow up on cyto/culture
-Likely secondary to know IVC obstruction. Less likely peritoneal carcinomatosis as SAAG <1.[address] without evidenc
IVC obstruction
-Can further eval with full ultrasound of IVC or can get CTAP non con as renal function is high, would prefer with con but not feasible at this time
-CTAP showing b/l hydro and pelvic lesion 8 x 5.6cm leiomyomatous uterus concerning for possible malignancy
B/l hydro
-PCN's b/l
Pelvic lesion
CEA normal and CA125 high
ZIPPER SETTER LOCKSTITCH and ZIPPER SETTER LOCKSTITCH-Onc consult
TVTP completed
Likely would benefit from inpatient Bx
Lytic lesion/lucent lesion of axial/proximal appendicular skeleton
-Likely metastatic lesion cannot exclude renal osteodyphrohy but suspect the former.
Normocytic anemia without evidence of acute blood loss anemia. Hemodynamically stable. Denies hematochezia, melena, hematuria, hemoptysis, epistaxis. Suspect likely related to anemia of renal disease/chronic disease as high ferritin.
-Transfuse to maintain hemoglobin greater than 7 per Tricc trial guidelines
- Repeat CBC 2 hours post transfusion completion
- Retransfuse if less than 7
HyperK
Lokelma
Low K diet
Anticipated Discharge: > 48 hours
Subjective/Interval History
-
Date of Service: June 09, 2025
seen and examinde. no new complaints. no acutoenivght overnight events
Objective Data
-
Labs:
Laboratory Results
06/09/25
07:01
Sodium 134 L
Potassium 5.1
Chloride 104
Carbon Dioxide 22
BUN 56 H
Creatinine 4.0 H
Glucose 113 H
Calcium 8.7
Vital Signs:
Vital Signs
Temp Pulse Resp BP Pulse Ox
98.7 F 92 16 117/68 97
06/09/25 11:27 06/09/25 11:27 06/09/25 11:27 06/09/25 11:27 06/09/25 11:27
I&O
06/08/25 06/09/25 06/10/25
06:59 06:59 06:59
Intake Total 480 / 480
Output Total 1370 / 1370 2650 / 2650 1000 / 1000
Balance -1370 / -1370 -2170 / -2170 -1000 / -1000
[2025-06-09] MEDS: COLACE 100 MG PO (18:37)
[2025-06-09] MEDS: SENOKOT-S 1 TABLET PO (18:38)
[2025-06-09 23:03] VITALS: BP 109/72
[2025-06-10 05:06] VITALS: BMI 17.4
[2025-06-10 06:35] LABS: Blood Urea Nitrogen 60 mg/dl (7-17); Calcium 9.0 mg/dl (8.4-10.2); Carbon Dioxide 24 mmol/L (22-30); Chloride 105 mmol/L (98-107); Estimated Creatinine Clearance 11 ml/min; Glucose 107 mg/dl (70-99); Potassium 4.7 mmol/L (3.5-5.1); Sodium 135 mmol/L (135-145); eGFR 12.53
[2025-06-10 07:33] VITALS: BP 119/73
[2025-06-10 08:01] LABS: 24 Hour Urine Total Volume 2800 mL; Ur Free Lambda Excretion/day 59.19 mg/d; Urine Collection Length 24 hr
[2025-06-10 08:01] LABS: Albumin 3.53 g/dL (3.75-5.01); SPEP IFE Reflex Not Done; Total Protein-Electrophoresis 5.9 g/dL (6.3-8.2)
[2025-06-10] MEDS: HEPARIN SC ×2 (08:21→20:13)
[2025-06-10] MEDS: NORVASC 5 MG PO (08:24)
[2025-06-10] MEDS: COLACE 100 MG PO (08:24)
--- NOTE | 2025-06-10 09:29 | W.PN.HOSP.TC ---
Addendum entered and electronically signed by Ramses Melvin MD 06/10/25 15:40:
Seen and examined by me independently in collaboration with the medical claims manager.
Lab data and imaging data reviewed.
Addendum as below :
Patient complains of constipation otherwise no specific complaints.
Creatinine with slow improvement post bilateral percutaneous nephrostomy tubes for hydronephrosis. Continue to follow creatinine. Nephrology following.
MRI of the pelvis without contrast shows interestingly no pelvic mass but moderate pelvic ascites. 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 The uterus is irregularly shaped because of leiomyomas.
There is diffuse sclerotic osseous metastatic disease.
Confusing picture with abnormal focal pelvic findings but also distant metastatic disease. Discussed with oncology who is not clear if his primary WORKERS COMPENSATION CONSULTANT oncology or primary is elsewhere. Patient does have a history of fibroadenomas and she does have
a palpable left upper quadrant breast area abnormality. Consult breast surgeon Dr. Ellis for further evaluation.
Original Note:
Today's Communication/Plan
-
Follow-up results of pelvic MRI and bone scan
Consider hemodialysis if kidney function does not continue to improve
Continue to monitor clinical status. Further gynecology/oncology workup to follow
Assessment / Plan
Assessment / Plan
Patient is a 54-year-old female with no known past medical history who presented to the [facility] emergency department for evaluation of abnormal outpatient labs. The labs were completed after the patient attempted to establish care with
a PCP due to her fatigue, weight loss, abdominal bloating, early satiety, and solid stools since December of this year. [place] the [place] ago after living in [facility] for 14 years. Patient's labs on presentation included
the following: Cr 5.3, BUN 79, K 6.2, AST 39, ALT 43, alk phos 161, and lipase 451.
#Pelvic mass
Patient presented with bloating for 4 months associated with weight loss, early satiety, and fatigue
CTAP 06/06: 8.0 x 5.6 cm lobulated, minimally heterogenous lesion in the pelvis, possible malignancy; diffusely mixed lucent/lytic appearance of the axial and proximal appendicular skeleton
Tumor markers: CA125 419 (elevated), CEA normal
Pelvic ultrasound (06/07): Per radiology, 5.7 cm irregular, lobular solid soft tissue mass surrounded by ascites; no normal uterus or ovaries identified
Pelvic MRI, bone scan pending
Consider pelvic mass biopsy, breast surgery consult, pending heme-onc evaluation
Insurance Agent-onc, heme-onc following
#Renal failure
Trend Cr: 5.3 > 5.2 > 5.2 > 4.7 > 5.0 > 4.4 > 4.0 > 4.0 (eGFR 12.53). Improving, though still markedly elevated.
Etiology of renal failure likely obstruction related to pelvic mass
On presentation, patient reported bloating for the past 4 months, mildly distended abdomen
Patient reported she has not seen a physician in 20+ years
Abdominal ultrasound (06/05): Per radiology, ascites, fatty liver, b/l renal collecting system dilatation, possible IVC thrombus.
Bladder scan (06/05): Per radiology, pelvic ascites.
IVC/iliac ultrasound: IVC and iliacs are patent
Paracentesis performed 06/06. SAAG approximately 2.1
CTAP 06/06: Per radiology, severe bilateral hydronephrosis without obstructing stone; 8.0 x 5.6 cm lobulated, minimally heterogenous lesion in the pelvis, possible malignancy; diffusely mixed lucent/lytic appearance of the axial and proximal
appendicular skeleton
Patient informed HD could be necessary, pending evaluation by nephrology
Bilateral nephrostomy tubes placed 06/07/2025 for treatment of hydronephrosis 2/2 suspected obstruction related to pelvic mass
Bloody urine draining from nephrostomy tube drainage bags bilaterally, patient otherwise producing very small amount of urine
Further gynecology/oncology workup to follow
Nephrology, urology, IR, Insurance Agent-onc, gynecology, heme-onc following
#Anemia
Hgb 9.7 (06/08), stable s/p 1 unit PRBCs (06/05)
Suspected 2/2 renal failure or chronic disease
Anemia workup: MCV 87.9�94.3, elevated ferritin (308)
Consider EPO stimulating agent if Hgb decreases
Trend CBC
Transfuse Hgb <7
#Hyperkalemia
Potassium 4.7 this morning, stable; 6.2 on presentation
Monitor BMP
#Transaminitis
Mild elevations of LFTs, continue to monitor
LFTs not substantially changed from those on presentation
Abdominal ultrasound (06/05) as detailed above
DVT PPx: SC heparin
CODE STATUS: Full
Anticipated Discharge: > 48 hours
Pelvic lesion
CEA normal and CA125 high
WORKERS COMPENSATION CONSULTANT and WORKERS COMPENSATION CONSULTANT-Onc consult
TVTP completed
Likely would benefit from inpatient Bx
Anticipated Discharge: > 48 hours
Subjective/Interval History
-
Date of Service: June 10, 2025
Patient seen at bedside on hospital day #7. Nursing reports NAEO. Patient reports no current complaints, other than constipation. Patient reports she is urinating very small amount following placement of nephrostomy tubes 3 days ago.
Objective Data
-
Labs:
Laboratory Results
06/10/25
05:33
Sodium 135
Potassium 4.7
Chloride 105
Carbon Dioxide 24
BUN 60 H
Creatinine 4.0 H
Glucose 107 H
Calcium 9.0
Vital Signs:
Vital Signs
Temp Pulse Resp BP Pulse Ox
98.1 F 88 17 119/73 99
06/10/25 07:33 06/10/25 08:24 06/10/25 07:33 06/10/25 08:24 06/10/25 07:33
I&O
06/09/25 06/10/25 06/11/25
06:59 06:59 06:59
Intake Total 480 / 480 1860 / 1860
Output Total 2650 / 2650 3000 / 3000 150 / 150
Balance -2170 / -2170 -1140 / -1140 -150 / -150
Review of Systems
-
History Source: Patient
Constitutional: Reports Weight Loss and Fatigue; Denies Fever or Chills
EENT: Reports No Symptoms Reported
Respiratory: Denies Cough, Trouble Breathing or Wheezing
Cardiac: Denies Chest Pain, Palpitations or Syncope
Abdomen/GI: Reports Constipated; Denies Abdominal Pain (No pain, the patient does endorse mild abdominal discomfort), Nausea, Vomiting or Diarrhea
Genitourinary: Reports Other (Urinating small amount s/p nephrostomy tube placement, which included a small clot)
Musculoskeletal: Denies Edema or Muscle Weakness
Skin: Reports No Symptoms
Neuro: Denies Dizzy, Headache, Weakness, Numbness or Lightheadedness
Physical Exam
-
General: Well Developed, Well Nourished, No Apparent Distress, Comfortable and Conversant; Negative Pain, Fever, Chills or Sweats
HEENT: Normocephalic and Atraumatic
Respiratory: Clear to Auscultation and Non Labored Respirations; Negative Wheezes or Crackles
Cardiac: Regular Rhythm and S1/S2; Negative Murmur, Rub, Gallop, Tachycardic or Bradycardic
Breast: Deferred by me
GI: Soft, Nontender, Normal Bowel Sounds and Other (Mild abdominal discomfort on palpation, no pain)
Genito-urinary: No Costovertebral Tender, Bloody Urine (Collecting in the nephrostomy tube drainage bags bilaterally) and Nephrostomy Tubes (Clean, dry, intact, non-TTP bilaterally)
Musculoskeletal: No Cyanosis and No Edema
Skin: Warm and Dry; Negative Jaundice
Neuro: AO x 3, No Motor Deficits and No Sensory Deficits
Psych: Calm
--- NOTE | 2025-06-10 12:46 | W.PN.NEPH.PH ---
Today's Communication / Plan
-
Monitor urine output
Assessment/Plan
-
IMP:
Renal Failure -AVERY vs CKD
Hyperkalemia
Non-Gapped Metabolic Acidosis
Abnormal LFTs
Normocytic Anemia
Elevated BPs
Mild hyperphosphatemia
Plan:
A/w abnormal labs, high cr
AVERY vs CKD-no baseline to compare
remains grossly non oliguric via bilateral percutaneous nephrostomy tubes left greater than right
Status post bilateral PCNs 06/07/25 re: obstruction
Pending uterine mass biopsy this week
given anemia check paraprotein = negative for monoclonal protein
also new ascites and diffuse fatty liver
no emergent need of dialysis
Status post transfusion
she will need insurance set up
renal diet
avoid nephrotoxins , no h/o NSAIDs
follow LFTs
Creatinine plateaued currently 4
A.m. labs
-
-
Date of Service: June 10, 2025
CC / HPI / ROS
-
Chief Complaint:
AVERY
History of Present Illness:
cr down to 4.
met acidosis better bicarb 23
BP stable
s/p paracentesis 1.1
no fever
Review of Systems:
feels better post para
no cp or sob
Bilateral nephrostomy tubes: non oliguric L>R
Labs
-
Labs:
WBC 4.8 10^3/uL (4.8-10.8) 06/08/25 07:30
RBC 3.32 10^6/uL (4.20-5.40) L 06/08/25 07:30
Hgb 9.7 g/dL (12.0-16.0) L 06/08/25 07:30
Hct 29.7 % (37.0-47.0) L 06/08/25 07:30
Plt Count 155 10^3/uL (130-400) D 06/08/25 07:30
Sodium 135 mmol/L (135-145) 06/10/25 05:33
Potassium 4.7 mmol/L (3.5-5.1) 06/10/25 05:33
Chloride 105 mmol/L (98-107) 06/10/25 05:33
Carbon Dioxide 24 mmol/L (22-30) 06/10/25 05:33
BUN 60 mg/dl (7-17) H 06/10/25 05:33
Creatinine 4.0 mg/dL (0.6-1.0) H 06/10/25 05:33
eGFR 12.53 06/10/25 05:33
Glucose 107 mg/dl (70-99) H 06/10/25 05:33
Calcium 9.0 mg/dl (8.4-10.2) 06/10/25 05:33
Phosphorus 5.6 mg/dl (2.5-4.5) H 06/05/25 05:29
Yfs-A-Rdinckfhnys Pept 1720 pg/ml 06/05/25 05:29
Albumin 3.9 g/dl (3.5-5.0) 06/07/25 06:03
Physical Exam
-
Vital Signs:
Vital Signs
Temp Pulse Resp BP Pulse Ox
98.1 F 88 17 119/73 100
06/10/25 07:33 06/10/25 08:24 06/10/25 07:33 06/10/25 08:24 06/10/25 08:00
Cardiovascular:: Regular rate and rhythm
Respiratory:: Bilateral: CTA
Lung Excursion:: Normal
Abdomen:: Nontender and Soft
Bowel Sounds:: Normal
Extremity Edema:: None: Bilateral:
Manzo Catheter: No
Other Findings::
Bilateral nephrostomy tubes
--- NOTE | 2025-06-10 13:18 | W.PN.GYNONC ---
Today's Communication
-
Patient does not have any obvious evidence of malignancy in the fluid or in pelvic organs, further investigation is ongoing
Awaiting return of creatinine to a normal level
Impression / Plan
-
# Pelvic Mass
Cytology of peritoneal fluid is favored to be atypical and reactive mesothelial cells. Mesothelioma cannot be excluded. At this time there is no definitive malignancy
MRI shows a fibroid uterus
There is no abnormal ovarian enlargement. The ovaries appear normal and symmetric in size.
Both ovaries appear to demonstrate decreased T1 and T2 signal. The ovaries are surrounded by the ascites.
There is no pelvic mass.
# Bone lesions on CT
Nuclear medicine bone scan appears to be widespread abnormalities, malignancy versus metabolic bone disease
MRI has also suggested bone lesions, sclerotic
Consider Med Onc Consult
#breast mass (left)
formal mammogram and repeat biopsy of the mass in medial aspect of left breast needs done. I am concerned about breast cancer. I personally spoke to Dr. Ellis, most likely she needs a biopsy of this mass
#Renal failure
It is unclear why her Cr Is plataeued at 4, perhaps she would benefit from IV hydration
Nephrology following
I recommend starting some IV fluids in order to increase her circulating volume. I suspect she is hemoconcentrated further contributing to the renal failure i.e. AVERY over CKD
#Anemia
improved since admission due to transfusion, now hgb is 9.4
probably due to renal failure
#Hyperkalemia
resolved
#Transaminitis
Mild elevations, trivial
#Elevated BNP, prob due to anemia causing chf, PLEASE CHECK echo, Formal cardiology eval for potential operative clearance
# Constipation start MiraLAX BID until bowel movements start
Cesar Murrell MD
[facility]
[phone]
Subjective / Interval History
-
Patient reports no current complaints,
Reports no BM, does not have much appetite, crampy and bloated
Patient reports she is urinating very small amount
some discomfort from PCNs bilaterally
I spoke with pathologist Dr Dr Finn, stating ascites cytology looks malignant, IHC pending.
Objective Data
-
Lab Results:
06/08/25 07:30
06/10/25 05:33
[facility]��
����������������������������[address] [place] [address]���
��������������������������������������������[phone]��
��
Patient�Name:�TEN TOBIAS����������������������������������������:�10/19/1958�������
Unit�Number:�[id number]����������������������������������������Age/Sex:�66/F���������
Patient�Acct�#:�[id number]����������������������������������������Location:�[facility]�������
Order�Provider:�Cale Merida.����������������������������������������Exam�Service�Date:�06/04/25��
��
��
����������������������������������������������������
�������
�������
�������
��[facility]
[address] [place] [id number]
[phone]
Patient Name: ANDREW TOBIAS
: 1970
Unit Number: [id number]
Age/Sex: 54/F
Patient
Location: [address] [place] [address]
Order Provider: Cesar Murrell MD
Exam Service Date: 06/10/25

Magnetic Resonance Imaging Rpt
SignedOrder #:[id number]
Exams: MR Pelvis W/o & With Contrast
CPT: [id number]
PROCEDURE: MR Pelvis W/o  With Contrast
CLINICAL INDICATION: Pelvic pain. Bloating. Early satiety. Renal failure. Hyperkalemia. Anemia.Ll.
TECHNIQUE: An MRI examination of the pelvis was performed with and without intravenous contrast on a 1.5 Zoila magnet. Sagittal T2 fat-suppressed, axial T1, axial T1 fat-suppressed, axial T2 fat-suppressed, and coronal T2 fat-suppressed imaging
sequences were obtained prior to the administration of intravenous contrast. Following the intravenous administration of 10 mL Clariscan gadolinium contrast material, axial and coronal T1-weighted fat-suppressed imaging sequences were obtained.
Axial subtraction images were obtained postcontrast.
COMPARISON: Comparison is made with an ultrasound examination of the pelvis performed 06/07/[address] examination of the abdomen and pelvis performed 06/06/2025.
FINDINGS:
There is a moderate amount of ascites in the pelvis surrounding the uterus, ovaries, and the inferior aspect of small bowel loops. The ascites measures 12.6 x 10.7 x 9.1 cm in AP, transverse, and craniocaudal dimensions and posteriorly displaces the
rectum into the left posterolateral aspect pelvis. There is a mild amount of smooth peritoneal hyperenhancement in the pelvis around the ascites.
The urinary bladder is nearly completely collapsed and appears to be displaced anteriorly and inferiorly by the ascites.
UTERUS: The uterus is located in the center of the ascites. There are approximately 20 leiomyoma in the uterus causing the uterus to have a very irregular shape. The leiomyoma are mostly subserosal and intramural in location with a small number of
submucosal leiomyoma. The largest leiomyomas exophytic from the anterior uterine fundus measuring 3.2 x 2.2 cm in size. The endometrium measures 3.4 mm in thickness and is compressed by the many uterine leiomyoma.
OVARIES: There is no abnormal ovarian enlargement. The ovaries appear normal and symmetric in size. Both ovaries appear to demonstrate decreased T1 and T2 signal. The ovaries are surrounded by the ascites.
GASTROINTESTINAL TRACT: There is serosal thickening of small bowel loops in the posterior inferior pelvis. There is a large amount of fecal material in the proximal ascending colon. The sigmoid colon appears displaced superiorly in the rectum is
displaced posterior laterally by the ascites.
SKELETON: There is extensive decreased T1 and T2 signal intensity throughout the bone marrow of the lumbar spine, pelvic bones, proximal femurs consistent with severe diffuse sclerotic osseous metastatic disease. There is a small central disc
herniation at L4/L5.
IMPRESSION:
1. 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
2. Irregular shaped uterus in the center of the pelvis containing approximately 20 uterine leiomyoma.
3. Normal sized ovaries.
4. 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
Electronically signed by Joe Brown MD, 06/10/2025 11:44 AM
��
�����Diagnostic Imaging Report
SignedOrder #:[id number]
Exams: NM Bone Scan, Whole Body
WHOLE BODY BONE SCAN
CPT: [id number]
Indication: Abnormal osseous system on recent CT and MRI
Prior Exam: None
Patient height: 5 feet and 4 inches
Patient weight: 103 pounds
Correlation is made with recent CT of the abdomen/pelvis and MRI of the pelvis.
Technique: Three hours following IV injection of 21.2 mCi of 99m Tc MDP in a right antecubital fossa vein at 1135 hours, the skeleton was imaged in multiple projections.
There is absence of physiologic urinary tract activity. This finding, in combination with predominantly widespread diffuse symmetric activity throughout the osseous system except for a small focus of isolated uptake of activity along the proximal
diaphysis of the left femur suggests widespread abnormal osseous activity, so-called 'SuperScan'.
Impression: Absence of normal physiologic renal activity with predominantly diffuse symmetric osseous uptake of activity, findings must be at least suspicious for 'SuperScan' appearance which can be seen with several etiologies some of which include
widespread metastatic disease, widespread diffuse metabolic bone disease, hyperthyroidism, Paget's disease, myelofibrosis and myeloproliferative disorders.
Electronically signed by Cesar Tejeda MD, 06/10/2025 4:21 PM��������������������������������
Physical Exam
Vital Signs / I&O
Vitals
Temp Pulse Resp BP Pulse Ox
98.1 F 88 17 119/73 100
06/10/25 07:33 06/10/25 08:24 06/10/25 07:33 06/10/25 08:24 06/10/25 08:00
I&O
06/08/25 06/09/25 06/10/25 06/11/25
06:59 06:59 06:59 06:59
Intake Total 480 / 480 1860 / 1860
Output Total 1370 / 1370 2650 / 2650 3000 / 3000 150 / 150
Balance -1370 / -1370 -2170 / -2170 -1140 / -1140 -150 / -150
Physical Exam
General: No Apparent Distress
HEENT: Normocephalic and Moist Mucous Membranes
Respiratory: Clear and Non Labored Respirations
Cardiac: S1/S2 and Regular Rhythm
GI: Soft, Non Tender and Normal Bowel Sounds
[2025-06-10 15:34] VITALS: BP 137/82
--- NOTE | 2025-06-10 15:37 | CM ---
CM continues to follow for all discharge planning needs. Pt remains ambulatory, walking in the halls.
Plan for uterine mass biopsy this week. Support provided.
--- NOTE | 2025-06-10 16:14 | W.PN.UPDATE ---
Update Note
Progress Note Update
Asked by hospitalist service to see pt who presented with abdominal distention, kidney failure, anemia, pelvic mass and evidence of osseous metastases. Most likely has ovarian primary and biopsy of pelvic lesion is planned this week. Pt has remote
history of a breast fibroadenoma and no recent imaging. Can obtain mammo and US if needed, but doubt that this is a breast primary malignancy.
[2025-06-10] MEDS: MIRALAX 17 GRAMS PO (20:11)
[2025-06-10 23:19] VITALS: BP 123/71
--- NOTE | 2025-06-11 02:29 | DOWNTIME ---
There was a [employer] Downtime on 06/11/2025 from 0100 to 06/11/2025 at 0220. Downtime documentation of patient's care, including medication administrations, has been reconciled in the electronic record per guidelines. Refer to the
patient's paper chart under the miscellaneous tab to see printed paper medication records and downtime forms.
[2025-06-11 06:09] VITALS: BMI 17.4
[2025-06-11 07:00] VITALS: BP 108/71
[2025-06-11 07:24] LABS: Hematocrit 26.3 % (37.0-47.0); Hemoglobin 8.9 g/dL (12.0-16.0); Mean Corp Hgb Conc. 33.8 g/dL (33.0-37.0); Mean Corpuscular Volume 87.4 fL (81.0-99.0); Platelet Count 186 10^3/uL (130-400); Red Cell Dist. Width 14.0 % (11.5-14.5)
[2025-06-11 07:46] LABS: Blood Urea Nitrogen 66 mg/dl (7-17); Calcium 9.0 mg/dl (8.4-10.2); Carbon Dioxide 21 mmol/L (22-30); Chloride 105 mmol/L (98-107); Estimated Creatinine Clearance 12 ml/min; Glucose 116 mg/dl (70-99); Potassium 4.7 mmol/L (3.5-5.1); Sodium 135 mmol/L (135-145); eGFR 13.76
[2025-06-11] MEDS: HEPARIN SC ×2 (08:15→19:52)
[2025-06-11] MEDS: MIRALAX 17 GRAMS PO ×2 (08:18→19:52)
[2025-06-11] MEDS: NORVASC PO (08:20)
--- NOTE | 2025-06-11 10:57 | CON.ONC ---
Consultation
-
Date Consultation Requested: 06/10/25
Date Consultation Performed: 06/11/25
Requesting Provider: Dr Waldemar Mcneal
Performing Provider: Dr Jannette Hernandez
Reason for Consultation: ? malignancy
Impression
Impression
ascites, with high SAAG and negative cytology (reactive mesothelial cells)
Renal failure, acuity unknown, at least partially due to obstruction, with hydronephrosis, s/p perc nephrolstomy tubes
anemia, no iron def, normal SPEP; suspect related to CKD
benign appearing breast masses
uterine fibroids, no VESSEL SCRAPPER HELPER malignancy seen on MRI; CA125 elevation (could be from fibroids, peritoneal inflammation/stretching from ascites)
Diffusely abnormal bones on imaging (normal SPEP rules out myeloma)
Plan
Plan
Clinical picture is complicated and etiology unclear
No evidence for malignancy thus far - based on ascites cytology, pelvic MRI, breast imaging. Bone lesions could be from CKD- mineral and bone disorder. Discussed consideration for bone biopsy, but opted to hold off at this time. Would expect obvious
cancer if such severe bony changes were malignant.
CKD could explain her anemia
Would consider ID evaluation - could a parasitic infection from [facility] [place] explain her signs/symptoms? (of note, WBC is without eosinophilia)
Will follow along and consider outpatient heme/onc f/u
Patient History
History of Present Illness
This is a 54-year-old female who presented to the emergency department on June 04, 2025 with bloating and early satiety. Outpatient blood work was noted for anemia and acute kidney injury. Blood work in the ER showed hemoglobin of 7.1 with normal
MCV. Platelet count and white blood cell count were normal. She had acute kidney injury with creatinine of 5.3. She had been living in [facility] [place] for 14 years, moved back to the only few months ago, because of increasing abdominal symptoms.
She was treated for possible parasitic infection prior to leaving , with temporary/mild improvement in her symptoms. She had not seen a physician in about 20 years. She underwent outpatient blood work, which was noted for anemia with hemoglobin
around 7, white blood cell count of 4.9 and platelet count of 144. MCV was 94.3., acute kidney injury with creatinine of 5.3, platelet count and white blood cell count. Chemistries were noted for creatinine of 5.3. BP was high initially, 182/106.
Ultrasound of the abdomen showed ascites. Also possible thrombus in the IVC. Bladder ultrasound showed no focal intrinsic abnormality in the bladder, pelvic ascites were present. She underwent paracentesis, 1100 cc clear yellow ascitic fluid. No
thrombus was identified in the IVC on Doppler ultrasound testing. CT scan of the abdomen and pelvis without IV contrast showed severe bilateral hydronephrosis without obstructing stone. There is an 8 x 5.6 cm lobulated minimally heterogeneous
lesion in the pelvis, which could represent a leiomyomatous uterus or possible malignancy. Diffuse lucent and lytic appearance of the skeleton is concerning for osseous metastatic disease over renal osteodystrophy. Pelvic and transvaginal
ultrasound showed a 5.7 cm irregular shaped solid soft tissue mass in the center of the pelvis. She underwent nephrostomy tube placement on June 07, 2025. Nuclear medicine bone scan on June 09, 2025 showed absence of normal physiologic renal
activity with predominantly diffuse symmetric osseous uptake, as can be seen with widespread metastatic disease, widespread diffuse metabolic bone disease, hypothyroidism, Paget's disease, myelofibrosis and myeloproliferative disorders. MRI of the
pelvis on June 10, 2025 showed moderate ascites. There is an irregular shaped uterus in the center of the pelvis containing approximately 20 uterine leiomyoma.
Breast ultrasound and mammogram today showed stable left fibroadenoma and benign appearing skin lesion.
Cytology from paracentesis showed atypical cells, favoring a reactive process. CEA tumor marker was slightly elevated 8.46 and CA125 elevated at 419. SPEP was negative for monoclonal protein.
Her kidney function is improving following nephrostomy tube placement. Hgb is up to 8.9, following 1u PRBCs early in admission.
She has been afebrile
Past-Medical/Surgical History
PMH/PSH - non DATA NETWORK ARCHITECT
FH - N/C
Social History
Tobacco: Non-Smoker
Alcohol: Occasional
Drug: Marijuana
Personal: Single
Living: With Family (sister)
Employment: Employed (manages [employer] )
Patient Medication
�Medication �Instructions �Recorded �Confirmed �Last Taken �Type
ascorbic acid (vitamin C) 250 mg 250 mg PO DAILY 06/04/25 06/04/25 06/03/25 History
tablet (Vitamin C)
calcium carbonate (Tums Extra 600 - 900 mg PO DAILYPRN PRN 06/04/25 06/04/25 4 Days Ago History
Strength Smoothies) stomach upset ~05/31/25
Active Medications
Generic Name Dose Route Start Last Admin
Trade Name Freq PRN Reason Stop Dose Admin
Acetaminophen 650 mg 06/04/25 22:45
Acetaminophen 325 Mg Tablet PO 07/02/25 22:44
Q4HPRN PRN
Mild Pain / Temp > 101
Amlodipine Besylate 5 mg 06/05/25 08:00 06/11/25 08:20
Amlodipine 5 Mg Tablet PO 07/03/25 07:59 Not Given
DAILY KARINA
Dextrose 12.5 grams 06/04/25 20:45
Dextrose 50% (0.5 Grams/Ml) 50 Ml Syringe IV 07/02/25 20:44
[id number] PRN
hypoglycemia (BG < 70 mg/dL)
Protocol
Docusate Sodium 100 mg 06/09/25 02:38 06/10/25 08:24
Docusate Sodium 100 Mg Capsule PO 07/07/25 02:37 100 mg
BIDPRN PRN Administration
constipation
Heparin Sodium 5,000 units 06/05/25 08:00 06/11/25 08:15
Heparin 5,000 Units/Ml 1 Ml Vial SC 07/03/25 07:59 Not Given
Q12 KARINA
Hydralazine HCl 5 mg 06/04/25 22:45
Hydralazine 20 Mg/Ml Vial IV 07/02/25 22:44
Q6HPRN PRN
SBP > 180
Hydromorphone HCl 0.5 mg 06/07/25 15:30
Hydromorphone 0.5 Mg/0.5 Ml Syringe IV 06/21/25 15:29
Q3HPRN PRN
severe pain
Sodium Chloride 1,000 mls @ 150 mls/hr 06/10/25 18:00
Nss IV 06/11/25 17:53
DIRECTED KARINA
Ondansetron HCl 4 mg 06/04/25 22:45 06/08/25 08:48
Ondansetron 4 Mg/2 Ml Vial IV 07/02/25 22:44 4 mg
Q6HPRN PRN Administration
nausea and vomiting
Oxycodone/Acetaminophen 1 tablet 06/07/25 15:30 06/08/25 08:49
Oxycodone 5 Mg/Apap 325 Mg (Percocet) PO 06/21/25 15:29 1 tablet
Q8HPRN PRN Administration
moderate pain
Polyethylene Glycol 17 grams 06/10/25 20:00 06/11/25 08:18
Polyethylene Glycol Powder 17 Grams Packet PO 07/08/25 19:59 17 grams
BID KARINA Administration
Senna/Docusate Sodium 1 tablet 06/09/25 02:38 06/09/25 18:38
Docusate W/Senna (Cheri-Colace) Tablet PO 07/07/25 02:37 1 tablet
DAILYPRN PRN Administration
constipation
Sodium Chloride 0 flush 06/04/25 23:00
Sodium Chloride 0.9% (Flush) Syringe IV 07/02/25 22:59
PER PROTOCOL KARINA
Review of Systems
-
All Other Systems: Not reviewed unless documented
Physical Exam
-
General: Well Developed, Well Nourished, No Apparent Distress, Comfortable and Conversant
HEENT: Negative Jaundice
Musculoskeletal: No Clubbing, No Cyanosis and No Edema
Neurology: Non Focal, No Lateralizing Symptoms and No Word Finding Difficulty
Skin: Warm and Dry
Psych: Calm and Intact Judgement/Insight
Labs
Lab Results
WBC 6.0 10^3/uL (4.8-10.8) 06/11/25 06:53
RBC 3.01 10^6/uL (4.20-5.40) L 06/11/25 06:53
Hgb 8.9 g/dL (12.0-16.0) L 06/11/25 06:53
Hct 26.3 % (37.0-47.0) L 06/11/25 06:53
MCV 87.4 fL (81.0-99.0) 06/11/25 06:53
MCH 29.6 pg (27.0-31.0) 06/11/25 06:53
MCHC 33.8 g/dL (33.0-37.0) 06/11/25 06:53
RDW 14.0 % (11.5-14.5) 06/11/25 06:53
Plt Count 186 10^3/uL (130-400) 06/11/25 06:53
MPV 9.7 fL (7.4-10.4) 06/11/25 06:53
Abs Immat Gran (auto) 0.0 10^3/uL (0-0.05) 06/07/25 06:03
Absolute Neuts (auto) 2.9 10^3/uL (1.4-6.5) 06/07/25 06:03
Absolute Lymphs (auto) 1.0 10^3/uL (1.2-3.4) L 06/07/25 06:03
Absolute Monos (auto) 0.4 10^3/uL (0.1-0.6) 06/07/25 06:03
Absolute Eos (auto) 0.1 10^3/uL (0-0.7) 06/07/25 06:03
Absolute Basos (auto) 0.0 10^3/uL (0-0.2) 06/07/25 06:03
Immature Gran % 0.2 % (0-0.5) 06/07/25 06:03
Neutrophils % 65.7 % (42.2-75.2) 06/07/25 06:03
Lymphocytes % 21.8 % (20.5-51.1) 06/07/25 06:03
Monocytes % 9.5 % (1.7-9.3) H 06/07/25 06:03
Eosinophils % 2.3 % (0-6) 06/07/25 06:03
Basophils % 0.5 % (0-2) 06/07/25 06:03
Creatinine 3.7 mg/dL (0.6-1.0) H 06/11/25 06:53
Vital Signs
Vital Signs
Temp Pulse Resp BP Pulse Ox
97.8 F 95 17 108/71 100
06/11/25 07:00 06/11/25 08:20 06/11/25 07:00 06/11/25 08:20 06/11/25 07:00
--- NOTE | 2025-06-11 12:42 | CM ---
Message left for Lisa requesting any update regarding Medical Assistance.
Pt remains hospitalized with ascites, creatinine 5.3; nephrostomy tubes, lesion in the pelvis,possible malignancy with metastatic disease.
She remains ambulatory in the room and in the hallways.
Plan: TBD pending medical plan
--- NOTE | 2025-06-11 13:30 | W.PN.NEPH.PH ---
Today's Communication / Plan
-
IV fluids
Assessment/Plan
-
IMP:
Renal Failure -AVERY vs CKD
Hyperkalemia
Non-Gapped Metabolic Acidosis
Abnormal LFTs
Normocytic Anemia
Elevated BPs
Mild hyperphosphatemia
Plan:
A/w abnormal labs, high cr
AVERY vs CKD-no baseline to compare
Status post bilateral PCNs 06/07/25 re: obstruction
No need for uterine mass biopsy= no gynecological malignancy and pelvic organs per HORSE TRADER oncology
negative for monoclonal protein
Cytology from paracentesis showed atypical cells, favoring a reactive process. CEA tumor marker was slightly elevated 8.46 and CA125 elevated at 419. SPEP was negative for monoclonal protein.
Hematology oncology consulted noted
renal diet
avoid nephrotoxins , no h/o NSAIDs
Agree with normal saline
A.m. labs
-
-
Date of Service: June 11, 2025
CC / HPI / ROS
-
Chief Complaint:
AVERY
History of Present Illness:
cr down to 4.
met acidosis better bicarb 23
BP stable
s/p paracentesis 1.1
no fever
Review of Systems:
feels better post para
no cp or sob
Bilateral nephrostomy tubes: non oliguric L>R
Labs
-
Labs:
WBC 6.0 10^3/uL (4.8-10.8) 06/11/25 06:53
RBC 3.01 10^6/uL (4.20-5.40) L 06/11/25 06:53
Hgb 8.9 g/dL (12.0-16.0) L 06/11/25 06:53
Hct 26.3 % (37.0-47.0) L 06/11/25 06:53
Plt Count 186 10^3/uL (130-400) 06/11/25 06:53
Sodium 135 mmol/L (135-145) 06/11/25 06:53
Potassium 4.7 mmol/L (3.5-5.1) 06/11/25 06:53
Chloride 105 mmol/L (98-107) 06/11/25 06:53
Carbon Dioxide 21 mmol/L (22-30) L 06/11/25 06:53
BUN 66 mg/dl (7-17) H 06/11/25 06:53
Creatinine 3.7 mg/dL (0.6-1.0) H 06/11/25 06:53
eGFR 13.76 06/11/25 06:53
Glucose 116 mg/dl (70-99) H 06/11/25 06:53
Calcium 9.0 mg/dl (8.4-10.2) 06/11/25 06:53
Phosphorus 5.6 mg/dl (2.5-4.5) H 06/05/25 05:29
Chl-E-Ypeszzkurfo Pept 1720 pg/ml 06/05/25 05:29
Albumin 3.9 g/dl (3.5-5.0) 06/07/25 06:03
Physical Exam
-
Vital Signs:
Vital Signs
Temp Pulse Resp BP Pulse Ox
97.8 F 95 17 108/71 100
06/11/25 07:00 06/11/25 08:20 06/11/25 07:00 06/11/25 08:20 06/11/25 07:00
Respiratory:: Bilateral: CTA
Lung Excursion:: Normal
Abdomen:: Soft
Bowel Sounds:: Normal
Extremity Edema:: None: Bilateral:
--- NOTE | 2025-06-11 13:43 | PN.CDI ---
CDI
- -
CDI:
Physician Documentation Request
Admit Date: 06/04/25 22:08
Dear Doctor Elizabet,
Please review the following and provide your response in the progress notes.
Clinical Indicators:
Behavioral Health Care Coordinator, 06/10
CBW: 101lb 3oz BMI 17.4 (06/10), 106 lbs 1.6 oz, 114 lbs 2 oz (06/05),
#...suspect weight change related to fluid with paracentesis,
#...weight loss reflective of a 8% weight loss in 2 months significant.
#...weight loss of > 7.5% in three months and < 75% estimated needs > 1 month pt
#...meets AND/ASPEN criteria for moderate protein calorie malnutrition of chronic illness.
Based on the above information and your assessment, which of the following most accurately represents the patient's nutritional status?
Moderate protein calorie malnutrition of chronic illness
Other (please specify)
[place] Criteria ([employer] Hospitalist 2017)
2 or more criteria must be present for either
non severe or severe malnutrition
Note that the criteria differs related to the
presence of an acute or chronic illness
Chronic Illness
Energy Intake Non Severe: <75% for >1 month
Severe: <75% for >1 month
Weight Loss Non Severe: 5% over 1 month
7.5% over 3 months
10% over 6 months
20% over 1 year
Severe: >5% over 1 month
>7.5% over 3 months
>10% over 6 months
>20% over 1 year
Body Fat Non Severe: Mild Loss
Severe: Severe Loss
Muscle Mass Non Severe: Mild Loss
Severe: Severe Loss
Use of terms such as suspected, likely, concern for, or probable (associated with a specific diagnosis that is being evaluated, monitored, or treated as if it exists) are acceptable and can be coded in the inpatient setting, when documented at the
time of discharge.
Thank you,
Demetria Castaneda RN BSN CCDS
CDI Specialist
please contact via tiger text
Please use your independent medical judgment in providing your response.
--- NOTE | 2025-06-11 14:09 | W.PN.UPDATE ---
Update Note
Progress Note Update
Seen and examined by me independently in collaboration with the medical superintendent.
Lab data and imaging data reviewed.
Addendum as below :
Patient voicing no specific complaints today. Tolerating diet. Afebrile and hemodynamically stable.
Patient was placed on IV fluids yesterday and creatinine continues to slowly improve. No extrarenal losses. I would continue with IV fluids to rule out any intravascular depletion component. Nephrology following.
[facility] oncology input noted. Fluid cytology, MR pelvis without contrast noted for less likely [facility] in origin per [facility] oncology.
Breast surgeon eval noted - Mamogram and US breasts ordered.
With unclear primary will ask medical oncology to evaluate the patient.
Pt understands the plan and all questions answered.
[2025-06-11 15:00] VITALS: BP 128/85
--- NOTE | 2025-06-11 15:16 | W.PN.URO.CBU ---
Today's Communication / Plan
-
no gu changes
Assessment / Plan
-
54F with severe bilateral hydronephrosis, pelvic mass, ascites, weight loss, acute vs chronic renal failure
s/p b/l percutaneous nephrostomy placement 06/07/25
Bilateral ureteral obstruction of unclear nature - would suspect large pelvic mass as the cause but ureters are not grossly dilated. Bilateral UPJ obstruction from benign retroperitoneal fibrosis or metastatic malignancy is anternative possibility
Will require additional evaluation/management, likely to be done on outpatient basis but dependent on additional findings of inpatient workup
Needs further workup of pelvic mass and bone lesions to rule out malignancy
Bladder US shows normal bladder wall without intramural mass, normal UA - very low suspicion for primary urologic malignancy
No urinary retention on renal US
Removey removed and voided without difficulty prior to PCNs
She may or may not void at all now post nephrostomy placement
Diagnosis
-
Date of Service: June 11, 2025
-
Patient Diagnosis:
Post Op Day:
Patient Diagnosis:
bilateral hydronephrosis
elevated creatinine
pelvic mass
ascites
Post Op Day:
Subjective
-
tolersting perc tubes
Objective
-
Vital Signs
Temp Pulse Resp BP Pulse Ox
97.8 F 95 17 108/71 100
06/11/25 07:00 06/11/25 08:20 06/11/25 07:00 06/11/25 08:20 06/11/25 07:00
Intake and Output
06/10/25 06/11/25 06/12/25
06:59 06:59 06:59
Intake Total 1860 / 1860 1080 / 1080
Output Total 3000 / 3000 2990 / 2990
Balance -1140 / -1140 -1910 / -1910
Intake:
Oral fluids 1860 / 1860 1080 / 1080
IV fluids (Total) 0 / 0
IV piggybacks 0 / 0
Output:
Urinary Drain Output (Total) 3000 / 3000 2990 / 2990
Left Nephrostomy 2325 / 2325 2265 / 2265
Right Nephrostomy 675 / 675 725 / 725
Other:
Number of approximated MODERATE 2
amounts of urine
Laboratory Results
06/11/25 06:53
06/11/25 06:53
Review of Systems
-
: Dark Urine
Physical Exam
-
General - well developed, well nourished, no acute distress
Chest - clear bilaterally
Abdomen - soft, non-tender, positive bowel sounds, no CVAT, no incisional pain or distention
Genitalia - normal
Rectal - normal
Skin - warm & dry with no rash
Neuro - AOx3, no motor deficits
Extremities - no clubbing, no cyanosis, no edema
Incision - clean, dry
Dressing - clean, dry, intact
Care Review
Data Reviewed
CT Scan: Image Pers Reviewed
--- NOTE | 2025-06-11 16:35 | W.PN.HOSP.TC ---
Today's Communication/Plan
-
Consider biopsy to further elucidate etiology of pelvic lesion and suspected bony metastases.
Consider hemodialysis if kidney function does not continue to improve with IV fluids.
Continue to monitor clinical status. Further oncologic workup to follow.
Assessment / Plan
Assessment / Plan
Patient is a 54-year-old female with no known past medical history who presented to the [facility] emergency department for evaluation of abnormal outpatient labs. The labs were completed after the patient attempted to establish care with
a PCP due to her fatigue, weight loss, abdominal bloating, early satiety, and solid stools since December of this year. [place] the [place] ago after living in [facility] for 14 years. Patient's labs on presentation included
the following: Cr 5.3, BUN 79, K 6.2, AST 39, ALT 43, alk phos 161, and lipase 451.
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
Patient presented with bloating for 4 months associated with weight loss, early satiety, and fatigue
CTAP 06/06: 8.0 x 5.6 cm lobulated, minimally heterogenous lesion in the pelvis, possible malignancy; diffusely mixed lucent/lytic appearance of the axial and proximal appendicular skeleton
Tumor markers: CA125 419 (elevated), CEA normal
Pelvic ultrasound (06/07): Per radiology, 5.7 cm irregular, lobular solid soft tissue mass surrounded by ascites; no normal uterus or ovaries identified
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
Bone scan: Per radiology, diffuse symmetric osseous uptake of activity
Breast ultrasound, mammogram (06/11): Per radiology, 2 solid masses observed. One is a stable fibroadenoma and the other is a suspected dermal lesion with benign appearance.
CA125 elevated
Pt Sitter-onc, heme-onc, breast surgery following
#Renal failure
Trend Cr: 5.3 on presentation, 3.7 today s/p bilateral PCN placement. Improving, though still markedly elevated.
Etiology of renal failure likely obstruction related to pelvic pathology
On presentation, patient reported bloating for the past 4 months, mildly distended abdomen
Patient reported she has not seen a physician in 20+ years
Initiate IV fluids to improve kidney perfusion
Abdominal ultrasound (06/05): Per radiology, ascites, fatty liver, b/l renal collecting system dilatation, possible IVC thrombus.
Bladder scan (06/05): Per radiology, pelvic ascites.
IVC/iliac ultrasound: IVC and iliacs are patent
Paracentesis performed 06/06. SAAG approximately 2.1
CTAP 06/06: Per radiology, severe bilateral hydronephrosis without obstructing stone; 8.0 x 5.6 cm lobulated, minimally heterogenous lesion in the pelvis, possible malignancy; diffusely mixed lucent/lytic appearance of the axial and proximal
appendicular skeleton
Patient informed HD could be necessary, pending evaluation by nephrology
Bilateral nephrostomy tubes placed 06/07/2025 for treatment of hydronephrosis 2/2 suspected obstruction related to pelvic mass
Bloody urine draining from nephrostomy tube drainage bags bilaterally, patient now otherwise producing clear urine
Further gynecology/oncology, heme-onc, breast surgery workup to follow
Nephrology, urology, IR, Pt Sitter-onc, gynecology, heme-onc, breast surgery following
#Anemia
Hgb 8.9 today, stable s/p 1 unit PRBCs (06/05)
Suspected 2/2 renal failure or chronic disease
Consider EPO stimulating agent if Hgb decreases
Trend CBC
Transfuse Hgb <7
#Hyperkalemia
Potassium 4.7 this morning, stable; 6.2 on presentation
Monitor BMP
#Transaminitis
Mild elevations of LFTs, continue to monitor
LFTs not substantially changed from those on presentation
Abdominal ultrasound (06/05) as detailed above
#Moderate protein calorie malnutrition of chronic illness
BMI 17.4
DVT PPx: SC heparin
CODE STATUS: Full
Anticipated Discharge: > 48 hours
Anticipated Discharge: > 48 hours
Subjective/Interval History
-
Date of Service: June 11, 2025
Patient is seen while sitting in a chair working in her room on hospital day #8. Patient states she is frustrated by the lack of answers regarding her suspected malignancy, but she understands that it takes time to gather the appropriate
information. No current complaints. Patient states she had a small bowel movement within the last day. She has also been urinating higher volume of clear urine over the past day.
Objective Data
-
Labs:
Laboratory Results
06/11/25
06:53
WBC 6.0
Hgb 8.9 L
Hct 26.3 L
Plt Count 186
Sodium 135
Potassium 4.7
Chloride 105
Carbon Dioxide 21 L
BUN 66 H
Creatinine 3.7 H
Glucose 116 H
Calcium 9.0
Vital Signs:
Vital Signs
Temp Pulse Resp BP Pulse Ox
98.1 F 100 17 128/85 100
06/11/25 15:00 06/11/25 15:00 06/11/25 15:00 06/11/25 15:00 06/11/25 15:00
I&O
06/10/25 06/11/25 06/12/25
06:59 06:59 06:59
Intake Total 1860 / 1860 1080 / 1080
Output Total 3000 / 3000 2990 / 2990
Balance -1140 / -1140 -191 / -0
Review of Systems
-
History Source: Patient
Constitutional: Reports Fatigue; Denies Fever or Chills
EENT: Reports No Symptoms Reported
Respiratory: Denies Cough, Trouble Breathing or Wheezing
Cardiac: Denies Chest Pain, Palpitations or Syncope
Abdomen/GI: Denies Abdominal Pain, Nausea, Vomiting or Diarrhea
Genitourinary: Reports Other (Urinating more than prior days; producing clear urine)
Musculoskeletal: Denies Edema
Skin: Reports No Symptoms
Neuro: Denies Headache, Weakness, Numbness or Lightheadedness
Physical Exam
-
General: Well Developed, Well Nourished, No Apparent Distress, Comfortable and Conversant
HEENT: Normocephalic and Atraumatic
Respiratory: Clear to Auscultation and Non Labored Respirations; Negative Wheezes or Crackles
Cardiac: Regular Rhythm and S1/S2; Negative Murmur, Rub, Gallop, Tachycardic or Bradycardic
GI: Soft, Nontender and Distended (Less distended than previous days)
Genito-urinary: Bloody Urine (Collecting and nephrostomy tube drainage bags bilaterally) and Nephrostomy Tubes (Bilateral)
Musculoskeletal: No Cyanosis and No Edema
Skin: Warm and Dry
Neuro: Awake, AO x 3, No Motor Deficits and No Sensory Deficits
Psych: Calm
--- NOTE | 2025-06-11 16:38 | W.PN.HOSP.TC ---
Assessment / Plan
Assessment / Plan
Patient is a 54-year-old female with no known past medical history who presented to the [facility] emergency department for evaluation of abnormal outpatient labs. The labs were completed after the patient attempted to establish care with
a PCP due to her fatigue, weight loss, abdominal bloating, early satiety, and solid stools since December of this year. [place] the [place] ago after living in [facility] for 14 years. Patient's labs on presentation included
the following: Cr 5.3, BUN 79, K 6.2, AST 39, ALT 43, alk phos 161, and lipase 451.
#Pelvic mass
Patient presented with bloating for 4 months associated with weight loss, early satiety, and fatigue
CTAP 06/06: 8.0 x 5.6 cm lobulated, minimally heterogenous lesion in the pelvis, possible malignancy; diffusely mixed lucent/lytic appearance of the axial and proximal appendicular skeleton
Tumor markers: CA125 419 (elevated), CEA normal
Pelvic ultrasound (06/07): Per radiology, 5.7 cm irregular, lobular solid soft tissue mass surrounded by ascites; no normal uterus or ovaries identified
Pelvic MRI, bone scan pending
Consider pelvic mass biopsy, breast surgery consult, pending heme-onc evaluation
[employer]-onc, heme-onc following
#Renal failure
Trend Cr: 5.3 > 5.2 > 5.2 > 4.7 > 5.0 > 4.4 > 4.0 > 4.0 (eGFR 12.53). Improving, though still markedly elevated.
Etiology of renal failure likely obstruction related to pelvic mass
On presentation, patient reported bloating for the past 4 months, mildly distended abdomen
Patient reported she has not seen a physician in 20+ years
Abdominal ultrasound (06/05): Per radiology, ascites, fatty liver, b/l renal collecting system dilatation, possible IVC thrombus.
Bladder scan (06/05): Per radiology, pelvic ascites.
IVC/iliac ultrasound: IVC and iliacs are patent
Paracentesis performed 06/06. SAAG approximately 2.1
CTAP 06/06: Per radiology, severe bilateral hydronephrosis without obstructing stone; 8.0 x 5.6 cm lobulated, minimally heterogenous lesion in the pelvis, possible malignancy; diffusely mixed lucent/lytic appearance of the axial and proximal
appendicular skeleton
Patient informed HD could be necessary, pending evaluation by nephrology
Bilateral nephrostomy tubes placed 06/07/2025 for treatment of hydronephrosis 2/2 suspected obstruction related to pelvic mass
Bloody urine draining from nephrostomy tube drainage bags bilaterally, patient otherwise producing very small amount of urine
Further gynecology/oncology workup to follow
Nephrology, urology, IR, [employer]-onc, gynecology, heme-onc following
#Anemia
Hgb 9.7 (06/08), stable s/p 1 unit PRBCs (06/05)
Suspected 2/2 renal failure or chronic disease
Anemia workup: MCV 87.9�94.3, elevated ferritin (308)
Consider EPO stimulating agent if Hgb decreases
Trend CBC
Transfuse Hgb <7
#Hyperkalemia
Potassium 4.7 this morning, stable; 6.2 on presentation
Monitor BMP
#Transaminitis
Mild elevations of LFTs, continue to monitor
LFTs not substantially changed from those on presentation
Abdominal ultrasound (06/05) as detailed above
DVT PPx: SC heparin
CODE STATUS: Full
Anticipated Discharge: > 48 hours
Pelvic lesion
CEA normal and CA125 high
[facility] and [facility] [employer] [facility]-Onc consult
TVTP completed
Likely would benefit from inpatient Bx
Subjective/Interval History
-
Date of Service: June 11, 2025
Objective Data
-
Labs:
Laboratory Results
06/11/25
06:53
WBC 6.0
Hgb 8.9 L
Hct 26.3 L
Plt Count 186
Sodium 135
Potassium 4.7
Chloride 105
Carbon Dioxide 21 L
BUN 66 H
Creatinine 3.7 H
Glucose 116 H
Calcium 9.0
Vital Signs:
Vital Signs
Temp Pulse Resp BP Pulse Ox
98.1 F 100 17 128/85 100
06/11/25 15:00 06/11/25 15:00 06/11/25 15:00 06/11/25 15:00 06/11/25 15:00
I&O
06/10/25 06/11/25 06/12/25
06:59 06:59 06:59
Intake Total 1859 / 1859 1080 / 1080
Output Total 3000 / 3000 2990 / 2990
Balance -1140 / -1140 -1909 / -1909
--- NOTE | 2025-06-11 16:56 | CON.GS ---
Consultation
-
Date/Time Consultation Requested: 06/10/25 1550H
Date/Time Consultation Performed: 06/11/25 1700H
Requesting Provider: Elizabet
Performing Provider: Rhonda
Reason for Consultation: Breast mass
Medical History
-
Chief Complaint: breast mass with ascites, renal failure, pelvic mass
History of Present Illness:
The patient is a 54 Y/O nulliparous female who has been living in [facility] and returned to the recently and presented to the hospital in acute renal failure with abdominal distention and ascites with apparent santy abnormalities concerning for
possible metastases. She had a first period at age 13 and had one ectopic and 3 failed attempts at IVF. Menopause at age 46. No family history of breast or ovarian cancer. She had a palpable fibroadenoma of the left breast biopsied 20
years ago and feels that it has decreased in size,
Past Medical History
Past Medical History: Reviewed & Noncontributory
Past Surgical History: Reviewed & Noncontributory
Social History
Tobacco: Non-Smoker
Drug: None
Family History
Family History: Reviewed & Not Pertinent
Allergies / Home Medications
Allergy/AdvReac Type Severity Reaction Status Date / Time
No Known Allergies Allergy Unverified 06/04/25 18:51
�Medication �Instructions �Recorded �Confirmed �Type
ascorbic acid (vitamin C) 250 mg 250 mg PO DAILY 06/04/25 06/04/25 History
tablet (Vitamin C)
calcium carbonate (Tums Extra 600 - 900 mg PO DAILYPRN PRN 06/04/25 06/04/25 History
Strength Smoothies) stomach upset
Review of Systems
-
History Source: Patient
All other systems: Negative unless noted
A 10 point review of systems was completed, and was negative except as per HPI.
Physical Exam
Vital Signs
Temp Pulse Resp BP Pulse Ox
98.1 F 100 17 128/85 100
06/11/25 15:00 06/11/25 15:00 06/11/25 15:00 06/11/25 15:00 06/11/25 15:00
06/10/25 06/11/25 06/12/25
06:59 06:59 06:59
Actual Weight 45.898 kg 46.04 kg
Body Mass Index (BMI) 17.4
Lab Results
06/11/25 06:53
06/11/25 06:53
WBC 6.0 10^3/uL (4.8-10.8) 06/11/25 06:53
Hgb 8.9 g/dL (12.0-16.0) L 06/11/25 06:53
Hct 26.3 % (37.0-47.0) L 06/11/25 06:53
Plt Count 186 10^3/uL (130-400) 06/11/25 06:53
Abs Immat Gran (auto) 0.0 10^3/uL (0-0.05) 06/07/25 06:03
Neutrophils % 65.7 % (42.2-75.2) 06/07/25 06:03
Physical Exam
General: Well Developed and Well Nourished
HEENT: Normocephalic and Anicteric
Respiratory: Clear and Non Labored Respirations
Breast: Mass/Lump (mass left breast lower inner quadrant consistent with fibroadenoma, another smaller mass over the sternal consistent with benign mass)
GI: Soft and Non Distended
Musculoskeletal: No Clubbing and No Cyanosis
Skin: Warm and Dry
Neuro: Awake, Alert and AO x 3
Hematologic/Lymphatic: No Lymphadenopathy
Data Reviewed
-
Radiology: Image Personally Visualized and interpreted, Report Reviewed by me and Discussed with Patient
CT Scan: Image Personally Visualized and interpreted, Report Reviewed by me and Discussed with Patient
Ultrasound: Image Personally Visualized and interpreted, Report Reviewed by me and Discussed with Patient
Labs: Labs Reviewed by me
Total Time Spent with Patient (in minutes): 20 mins
Assessment / Plan
-
Pt with renal failure, pelvic mass, ascites, breast masses. There is nothing concerning on her breast exam. The benign findings would play no role in her current situation.
Initiate routine breast screening with yearly mammo and would suggest screening US due to breast density.
[2025-06-11 23:02] VITALS: BP 105/74
[2025-06-12 06:00] VITALS: BMI 17.4
--- NOTE | 2025-06-12 06:49 | W.PN.HOSP.TC ---
Addendum entered and electronically signed by Ramses Melvin MD 06/12/25 15:24:
Seen and examined by me independently in collaboration with the medical customer service representative.
Lab data and imaging data reviewed.
Addendum as below :
Apart from constipation voices no specific complaints.
Diagnosis remains elusive.
Discussed with medical oncologist and INVESTMENT ASSOCIATE oncology today.
Thought would first proceed with a bone biopsy and if nondiagnostic then a diagnostic laparoscopy and surgical biopsy.
Discussed with IR-would plan for bone biopsy tomorrow.
Total time spent on today's encounter was 52 minutes which included time spent in counseling the patient/family regarding diagnosis and treatment plan as listed above, goals of care, and symptom management. Case was discussed with nursing staff,
specialists, and care coordinators/case management. All labs and imaging personally reviewed by me. Remainder the time spent in detailed review of previous records, lab data, imaging, and other medical provider documentation.
Original Note:
Today's Communication/Plan
-
Consider exploratory laparotomy via general surgery and bone marrow biopsy via IR for further elucidation of pelvic lesion and suspected bony metastases.
Consider hemodialysis if kidney function does not continue to improve.
Continue to monitor clinical status.
Assessment / Plan
Assessment / Plan
Patient is a 54-year-old female with no known past medical history who presented to the [facility] emergency department for evaluation of abnormal outpatient labs. The labs were completed after the patient attempted to establish care with
a PCP due to her fatigue, weight loss, abdominal bloating, early satiety, and solid stools since December of this year. [place] the [place] ago after living in [facility] for 14 years. Patient's labs on presentation included
the following: Cr 5.3, BUN 79, K 6.2, AST 39, ALT 43, alk phos 161, and lipase 451.
# Diffusely mixed lucent/lytic bone lesions
Patient presented with bloating for 4 months associated with weight loss, early satiety, and fatigue
No evidence for malignancy at this point based on the workup detailed below
CTAP 06/06: 8.0 x 5.6 cm lobulated, minimally heterogenous lesion in the pelvis, possible malignancy; diffusely mixed lucent/lytic appearance of the axial and proximal appendicular skeleton
Pelvic ultrasound (06/07): Per radiology, 5.7 cm irregular, lobular solid soft tissue mass surrounded by ascites; no normal uterus or ovaries identified
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
Bone scan: Per radiology, diffuse symmetric osseous uptake of activity
Breast ultrasound, mammogram (06/11): Per radiology, 2 solid masses observed. One is a stable fibroadenoma and the other is a suspected dermal lesion with benign appearance.
CA125 elevated, SPEP normal, CEA normal, negative ascitic cytology
We will likely need to pursue biopsy of bone lesion and/or exploratory laparotomy
Intake Counselor-onc, heme-onc, breast surgery following
#Renal failure
Trend Cr: 5.3 on presentation, 3.6 today s/p bilateral PCN placement. Improving, though still markedly elevated.
Etiology of renal failure likely obstruction related to pelvic pathology
On presentation, patient reported bloating for the past 4 months, mildly distended abdomen
Patient reported she has not seen a physician in 20+ years
Abdominal ultrasound (06/05): Per radiology, ascites, fatty liver, b/l renal collecting system dilatation, possible IVC thrombus.
Bladder scan (06/05): Per radiology, pelvic ascites.
IVC/iliac ultrasound: IVC and iliacs are patent
Paracentesis performed 06/06. SAAG approximately 2.1
CTAP 06/06: Per radiology, severe bilateral hydronephrosis without obstructing stone; 8.0 x 5.6 cm lobulated, minimally heterogenous lesion in the pelvis, possible malignancy; diffusely mixed lucent/lytic appearance of the axial and proximal
appendicular skeleton
Patient informed HD could be necessary, pending evaluation by nephrology
Bilateral nephrostomy tubes placed 06/07/2025 for treatment of hydronephrosis 2/2 suspected obstruction related to pelvic pathology
Lightly red-tinged urine draining from nephrostomy tube drainage bags bilaterally, patient now otherwise producing clear urine
Further gynecology/oncology, heme-onc, breast surgery workup to follow
Nephrology, urology, IR, Intake Counselor-onc, gynecology, heme-onc, breast surgery following
#Anemia
Hgb 9.5 today, stable s/p 1 unit PRBCs (06/05)
Suspected 2/2 renal failure or chronic disease
Consider EPO stimulating agent if Hgb decreases
Trend CBC
Transfuse Hgb <7
#Hyperkalemia
Potassium 4.5 this morning, stable; 6.2 on presentation
Continue low potassium diet
Monitor BMP
#Transaminitis
Mild elevations of LFTs, continue to monitor
LFTs not substantially changed from those on presentation
Abdominal ultrasound (06/05) as detailed above
#Moderate protein calorie malnutrition of chronic illness
BMI 17.4
DVT PPx: SC heparin
CODE STATUS: Full
Anticipated Discharge: > 48 hours
Anticipated Discharge: > 48 hours
Subjective/Interval History
-
Date of Service: June 12, 2025
Patient is at the bedside on hospital day #9. Nursing reports NAEO. Patient has no current complaints. Feeling better overall. She has not urinated in the last day, though her nephrostomy tube drainage bags are collecting urine. No bowel
movement since 2 days ago.
Objective Data
-
Labs:
Laboratory Results
06/12/25
06:00
WBC Pending
Hgb Pending
Hct Pending
Plt Count Pending
Sodium Pending
Potassium Pending
Chloride Pending
Carbon Dioxide Pending
BUN Pending
Creatinine Pending
Glucose Pending
Calcium Pending
Vital Signs:
Vital Signs
Temp Pulse Resp BP Pulse Ox
99.1 F 91 14 105/74 98
06/11/25 23:02 06/11/25 23:02 06/11/25 23:02 06/11/25 23:02 06/11/25 23:02
I&O
06/10/25 06/11/25 06/12/25
06:59 06:59 06:59
Intake Total 1860 / 1860 1080 / 1080 720 / 720
Output Total 3000 / 3000 2990 / 2990 1350 / 1350
Balance -1140 / -1140 -1910 / -1910 -630 / -630
Review of Systems
-
Constitutional: Denies Fever, Fatigue or Chills
EENT: Reports No Symptoms Reported
Respiratory: Denies Cough, Trouble Breathing or Wheezing
Cardiac: Denies Chest Pain, Palpitations or Syncope
Abdomen/GI: Reports Constipated (Last BM 2 days ago) and Bloated
Genitourinary: Reports Other (No urine last day)
Musculoskeletal: Denies Edema
Neuro: Denies Dizzy, Headache, Weakness or Numbness
Physical Exam
-
General: Well Developed, Well Nourished, No Apparent Distress, Comfortable and Conversant
HEENT: Normocephalic and Atraumatic
Respiratory: Clear to Auscultation and Non Labored Respirations; Negative Wheezes or Crackles
Cardiac: Regular Rhythm and S1/S2; Negative Murmur, Rub or Gallop
GI: Soft and Nontender
Genito-urinary: Nephrostomy Tubes
Musculoskeletal: No Cyanosis and No Edema
Skin: Warm and Dry
Neuro: AO x 3
Psych: Calm
[2025-06-12 07:15] VITALS: BP 105/76
[2025-06-12 07:20] LABS: Hematocrit 27.8 % (37.0-47.0); Hemoglobin 9.5 g/dL (12.0-16.0); Mean Corp Hgb Conc. 34.2 g/dL (33.0-37.0); Mean Corpuscular Volume 88.0 fL (81.0-99.0); Platelet Count 277 10^3/uL (130-400); Red Cell Dist. Width 13.9 % (11.5-14.5)
[2025-06-12 07:59] LABS: Blood Urea Nitrogen 63 mg/dl (7-17); Calcium 9.2 mg/dl (8.4-10.2); Carbon Dioxide 19 mmol/L (22-30); Chloride 104 mmol/L (98-107); Estimated Creatinine Clearance 13 ml/min; Glucose 116 mg/dl (70-99); Potassium 4.5 mmol/L (3.5-5.1); Sodium 135 mmol/L (135-145); eGFR 14.22
[2025-06-12] MEDS: HEPARIN SC ×2 (09:00→19:40)
[2025-06-12] MEDS: NORVASC PO (09:00)
[2025-06-12] MEDS: MIRALAX 17 GRAMS PO ×2 (09:00→19:40)
--- NOTE | 2025-06-12 12:11 | W.PN.NEPH.PH ---
Today's Communication / Plan
-
Follow BMP
Add sodium bicarbonate tablets for evolving acidosis
Assessment/Plan
-
IMP:
Renal Failure -AVERY vs CKD
Hyperkalemia
Non-Gapped Metabolic Acidosis
Abnormal LFTs
Normocytic Anemia
Elevated BPs
Mild hyperphosphatemia
Plan:
A/w abnormal labs, high cr
AVERY vs CKD-no baseline to compare
Creatinine down to 3.6 and remains nonoliguric
Status post bilateral PCNs 06/07/25 re: obstruction
No need for uterine mass biopsy= no gynecological malignancy and pelvic organs per ELECTRONIC DATA INTERCHANGE SPECIALIST oncology
negative for monoclonal protein
Cytology from paracentesis showed atypical cells, favoring a reactive process. CEA tumor marker was slightly elevated 8.46 and CA125 elevated at 419. SPEP was negative for monoclonal protein.
Hematology oncology consulted noted
renal diet
avoid nephrotoxins , no h/o NSAIDs
No more IV fluids required at this time
A.m. labs
-
-
Date of Service: June 12, 2025
CC / HPI / ROS
-
Chief Complaint:
AVERY
History of Present Illness:
cr down to 3.6.
met acidosis better bicarb 19
BP stable
s/p paracentesis 1.1
no fever
Review of Systems:
feels better post para
no cp or sob
Bilateral nephrostomy tubes: non oliguric L>R
Labs
-
Labs:
WBC 9.4 10^3/uL (4.8-10.8) 06/12/25 06:58
RBC 3.16 10^6/uL (4.20-5.40) L 06/12/25 06:58
Hgb 9.5 g/dL (12.0-16.0) L 06/12/25 06:58
Hct 27.8 % (37.0-47.0) L 06/12/25 06:58
Plt Count 277 10^3/uL (130-400) D 06/12/25 06:58
Sodium 135 mmol/L (135-145) 06/12/25 06:58
Potassium 4.5 mmol/L (3.5-5.1) 06/12/25 06:58
Chloride 104 mmol/L (98-107) 06/12/25 06:58
Carbon Dioxide 19 mmol/L (22-30) L 06/12/25 06:58
BUN 63 mg/dl (7-17) H 06/12/25 06:58
Creatinine 3.6 mg/dL (0.6-1.0) H 06/12/25 06:58
eGFR 14.22 06/12/25 06:58
Glucose 116 mg/dl (70-99) H 06/12/25 06:58
Calcium 9.2 mg/dl (8.4-10.2) 06/12/25 06:58
Phosphorus 5.6 mg/dl (2.5-4.5) H 06/05/25 05:29
Ujd-R-Vmuxqqcthqd Pept 1720 pg/ml 06/05/25 05:29
Albumin 3.9 g/dl (3.5-5.0) 06/07/25 06:03
Physical Exam
-
Vital Signs:
Vital Signs
Temp Pulse Resp BP Pulse Ox
97.6 F 98 16 105/76 100
06/12/25 07:15 06/12/25 07:15 06/12/25 07:15 06/12/25 07:15 06/12/25 07:15
Respiratory:: Bilateral: CTA
Lung Excursion:: Normal
Abdomen:: Soft
Bowel Sounds:: Normal
Extremity Edema:: None: Bilateral:
Other Findings::
bilateral PCNs
[2025-06-12 15:05] VITALS: BP 116/75
[2025-06-12] MEDS: DULCOLAX 10 MG PO (15:56)
[2025-06-12] MEDS: SODIUM BICARBONATE 325 MG PO ×2 (15:56→23:18)
[2025-06-12] MEDS: SENOKOT-S 1 TABLET PO (19:40)
[2025-06-12 23:16] VITALS: BP 105/70
[2025-06-13] VITALS (9 sets, daily range): BP systolic 83–122; BP diastolic 62–80; BMI 17.5
--- NOTE | 2025-06-13 08:22 | W.PN.ONC ---
Today's Communication / Plan
-
Patient reports scheduled MRI of the abdomen
Hemoglobin improved to 9.5 g/dL
WBC and platelets in the normal range
Consider laparoscopy pending results of MRI
Impression
Impression
ascites, with high SAAG and negative cytology (reactive mesothelial cells)
Renal failure, acuity unknown, at least partially due to obstruction, with hydronephrosis, s/p perc nephrolstomy tubes
anemia, no iron def, normal SPEP; suspect related to CKD
benign appearing breast masses
uterine fibroids, no DIESEL MECHANIC malignancy seen on MRI; CA125 elevation (could be from fibroids, peritoneal inflammation/stretching from ascites)
Diffusely abnormal bones on imaging (normal SPEP rules out myeloma)
Subjective/Objective
Subjective/Objective
No new complaints today. Sitting in bed comfortable.
Vital Signs:
Vital Signs
Temp Pulse Resp BP Pulse Ox
98.2 F 93 14 118/74 100
06/13/25 08:06 06/13/25 08:06 06/13/25 08:06 06/13/25 08:06 06/13/25 08:06
Physical exam unchanged
Lab Results:
Laboratory Data
WBC 9.4 10^3/uL (4.8-10.8) 06/12/25 06:58
Hgb 9.5 g/dL (12.0-16.0) L 06/12/25 06:58
Plt Count 277 10^3/uL (130-400) D 06/12/25 06:58
PT 14.9 Sec (11.4-14.6) H 06/05/25 05:29
INR 1.14 06/05/25 05:29
eGFR 14.22 06/12/25 06:58
[2025-06-13 08:36] LABS: Blood Urea Nitrogen 64 mg/dl (7-17); Calcium 9.5 mg/dl (8.4-10.2); Carbon Dioxide 20 mmol/L (22-30); Chloride 104 mmol/L (98-107); Estimated Creatinine Clearance 13 ml/min; Glucose 124 mg/dl (70-99); Potassium 4.3 mmol/L (3.5-5.1); Sodium 137 mmol/L (135-145); eGFR 14.70
[2025-06-13 08:47] LABS: Hematocrit 28.8 % (37.0-47.0); Hemoglobin 9.7 g/dL (12.0-16.0); Mean Corp Hgb Conc. 33.7 g/dL (33.0-37.0); Mean Corpuscular Volume 87.0 fL (81.0-99.0); Platelet Count 355 10^3/uL (130-400); Red Cell Dist. Width 13.8 % (11.5-14.5)
[2025-06-13] MEDS: SODIUM BICARBONATE 325 MG PO ×3 (09:06→20:59)
[2025-06-13] MEDS: NORVASC 5 MG PO (09:06)
[2025-06-13] MEDS: MIRALAX 17 GRAMS PO (09:07)
[2025-06-13] MEDS: HEPARIN SC ×2 (09:07→20:32)
--- NOTE | 2025-06-13 09:53 | W.PN.HOSP.TC ---
Addendum entered and electronically signed by Ramses Melvin MD 06/13/25 13:28:
Seen and examined by me independently in collaboration with the medical physics researcher.
Lab data and imaging data reviewed.
Addendum as below :
Voices no specific complaints today. No overnight events.
Patient for bone biopsy and MRI of the abdomen with and without contrast today.
Tentative plan for diagnostic laparoscopy on Tuesday as discussed with Dr. Murrell.
Original Note:
Today's Communication/Plan
-
MRI abdomen and biopsy of bone lesion(s) planned for today
Consider exploratory laparotomy pending results of MRI and biopsy
Continue to monitor clinical status
Assessment / Plan
Assessment / Plan
Patient is a 54-year-old female with no known past medical history who presented to the [facility] emergency department for evaluation of abnormal outpatient labs. The labs were completed after the patient attempted to establish care with
a PCP due to her fatigue, weight loss, abdominal bloating, early satiety, and solid stools since December of this year. [place] the [place] a [place] ago after living in [facility] for 14 years. Patient's labs on presentation included
the following: Cr 5.3, BUN 79, K 6.2, AST 39, ALT 43, alk phos 161, and lipase 451.
# Diffusely mixed lucent/lytic bone lesions
Patient presented with bloating for 4 months associated with weight loss, early satiety, and fatigue
No evidence for malignancy at this point based on the workup detailed below
CTAP 06/06: 8.0 x 5.6 cm lobulated, minimally heterogenous lesion in the pelvis, possible malignancy; diffusely mixed lucent/lytic appearance of the axial and proximal appendicular skeleton
Pelvic ultrasound (06/07): Per radiology, 5.7 cm irregular, lobular solid soft tissue mass surrounded by ascites; no normal uterus or ovaries identified
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
Bone scan: Per radiology, diffuse symmetric osseous uptake of activity
Breast ultrasound, mammogram (06/11): Per radiology, 2 solid masses observed. One is a stable fibroadenoma and the other is a suspected dermal lesion with benign appearance.
CA125 elevated, SPEP normal, CEA normal, negative ascitic cytology
Plan for the following today:
- IR biopsy of bone lesions
- MRI abdomen with and without contrast
Consider exploratory laparotomy of pelvis pending results of today's biopsy and MRI
Sales And Service Engineer-onc, heme-onc, breast surgery following
#Renal failure
Trend Cr: 5.3 on presentation, 3.5 today s/p bilateral PCN placement. Improving, though still markedly elevated.
Etiology of renal failure likely obstruction related to pelvic pathology
On presentation, patient reported bloating for the past 4 months, mildly distended abdomen
Patient reported she has not seen a physician in 20+ years
Abdominal ultrasound (06/05): Per radiology, ascites, fatty liver, b/l renal collecting system dilatation, possible IVC thrombus.
Bladder scan (06/05): Per radiology, pelvic ascites.
IVC/iliac ultrasound: IVC and iliacs are patent
Paracentesis performed 06/06. SAAG approximately 2.1
CTAP 06/06: Per radiology, severe bilateral hydronephrosis without obstructing stone; 8.0 x 5.6 cm lobulated, minimally heterogenous lesion in the pelvis, possible malignancy; diffusely mixed lucent/lytic appearance of the axial and proximal
appendicular skeleton
Patient informed HD could be necessary, pending evaluation by nephrology
Bilateral nephrostomy tubes placed 06/07/2025 for treatment of hydronephrosis 2/2 suspected obstruction related to pelvic pathology
Red-tinged urine draining from right nephrostomy tube drainage bag (though less bloody than yesterday), clear yellow urine in left drainage bag; patient now otherwise producing small amount of clear urine
Nephrology, urology, IR, Sales And Service Engineer-onc, gynecology, heme-onc, breast surgery following
#Anemia
Hgb 9.7 today, stable s/p 1 unit PRBCs (06/05)
Continue to monitor apparent blood draining from right nephrostomy tube, which appears to be improved from yesterday
Suspected 2/2 renal failure or chronic disease
Consider EPO stimulating agent if Hgb decreases
Trend CBC
Transfuse Hgb <7
#Hyperkalemia
Potassium 4.3 this morning, stable; 6.2 on presentation
Continue low potassium diet
Monitor BMP
#Transaminitis
Mild elevations of LFTs, continue to monitor
LFTs not substantially changed from those on presentation
Abdominal ultrasound (06/05) as detailed above
#Moderate protein calorie malnutrition of chronic illness
BMI 17.4
DVT PPx: SC heparin
CODE STATUS: Full
Anticipated Discharge: > 48 hours
Anticipated Discharge: > 48 hours
Subjective/Interval History
-
Date of Service: June 13, 2025
Patient is seen at bedside on hospital day #10. Patient states she 'feels the same' as yesterday. She got good, continue sleep last night. Urinated a small amount of clear urine since yesterday. Endorses continued constipation, though she did
recently have a small bowel movement. Otherwise, no current complaints.
Objective Data
-
Labs:
Laboratory Results
06/13/25
07:50
WBC 9.3
Hgb 9.7 L
Hct 28.8 L
Plt Count 355 D
Sodium 137
Potassium 4.3
Chloride 104
Carbon Dioxide 20 L
BUN 64 H
Creatinine 3.5 H
Glucose 124 H
Calcium 9.5
Vital Signs:
Vital Signs
Temp Pulse Resp BP Pulse Ox
98.2 F 93 14 118/74 100
06/13/25 08:06 06/13/25 09:06 06/13/25 08:06 06/13/25 09:06 06/13/25 08:06
I&O
06/12/25 06/13/25 06/14/25
06:59 06:59 06:59
Intake Total 720 / 960 3660 / 3660
Output Total 1350 / 2705 5505 / 5505
Balance -630 / -1745 -1845 / -1845
Review of Systems
-
History Source: Patient
Constitutional: Reports Fatigue; Denies Fever or Chills
Respiratory: Denies Cough, Trouble Breathing or Wheezing
Cardiac: Denies Chest Pain, Palpitations or Syncope
Abdomen/GI: Reports Constipated (Small bowel movement since yesterday); Denies Abdominal Pain, Nausea, Vomiting or Diarrhea
Genitourinary: Reports Bleeding (Red-tinged urine draining from right PCN tube; clear yellow urine on left) and Other (Urinating a small amount of clear since yesterday); Denies Flank Pain (Patient does note some mild sensitivity at the right PCN
incision today, though she says it does not uncomfortable enough that she would take anything for it) or Difficulty Voiding
Musculoskeletal: Denies Edema
Skin: Reports No Symptoms
Neuro: Denies Dizzy, Headache, Weakness, Numbness or Lightheadedness
Physical Exam
-
General: Well Developed, Well Nourished, No Apparent Distress, Comfortable and Conversant; Negative Pain, Fever, Chills or Sweats
HEENT: Normocephalic and Atraumatic
Respiratory: Clear to Auscultation and Non Labored Respirations; Negative Wheezes or Crackles
Cardiac: Regular Rhythm and S1/S2; Negative Murmur, Rub, Gallop, Tachycardic or Bradycardic
GI: Soft, Nontender and Normal Bowel Sounds
Genito-urinary: No Costovertebral Tender and Nephrostomy Tubes (Draining clear yellow fluid on the left; draining red-tinged fluid on right, though appears less bloody than yesterday; left PCN non-TTP; right PCN mildly sensitive to palpation (though
not painful); no bruising on flanks bilaterally)
Musculoskeletal: No Cyanosis and No Edema
Skin: Warm and Dry
Neuro: Awake, AO x 3, No Motor Deficits and No Sensory Deficits
Psych: Calm
[2025-06-13] MEDS: MIRALAX PO (20:32)
[2025-06-13] MEDS: TYLENOL 650 MG PO (20:59)
[2025-06-14 06:32] VITALS: BMI 17.4
[2025-06-14 06:48] LABS: Blood Urea Nitrogen 66 mg/dl (7-17); Calcium 9.0 mg/dl (8.4-10.2); Carbon Dioxide 19 mmol/L (22-30); Chloride 105 mmol/L (98-107); Estimated Creatinine Clearance 14 ml/min; Glucose 115 mg/dl (70-99); Potassium 4.1 mmol/L (3.5-5.1); Sodium 133 mmol/L (135-145); eGFR 16.37
[2025-06-14 06:58] LABS: Hematocrit 21.7 % (37.0-47.0); Hemoglobin 7.6 g/dL (12.0-16.0); Mean Corp Hgb Conc. 35.0 g/dL (33.0-37.0); Mean Corpuscular Volume 85.1 fL (81.0-99.0); Platelet Count 197 10^3/uL (130-400); Red Cell Dist. Width 13.6 % (11.5-14.5)
[2025-06-14 07:00] VITALS: BP 126/73
--- NOTE | 2025-06-14 07:23 | PTCARENOTE ---
Notified provider (Deyvi) that pt's Hgb dropped from 9.7 to 7.6. New order for hemocult testing on stools
[2025-06-14] MEDS: NORVASC 5 MG PO (08:40)
[2025-06-14] MEDS: SODIUM BICARBONATE 325 MG PO ×3 (08:41→21:47)
[2025-06-14] MEDS: MIRALAX PO ×2 (08:42→21:47)
[2025-06-14] MEDS: HEPARIN SC ×2 (08:42→21:47)
[2025-06-14] MEDS: TYLENOL 650 MG PO ×2 (08:51→17:37)
--- NOTE | 2025-06-14 12:47 | W.PN.HOSP.TC ---
Addendum entered and electronically signed by Ramses Melvin MD 06/14/25 13:50:
Seen and examined by me independently in collaboration with the certified medical transcriptionist.
Lab data reviewed.
Addendum as below :
Apart from General fatigue voices no specific complaints. Fatigue has been chronic and she thinks is because of being in the bedrest and not getting her exercise.
Denies any chest pain or shortness of breath. No dizziness.
Dropped in H&H to 7.6 noted. Post PCN placement patient had slight bleeding into the right PCN which is almost clear now. Doubt the reason for drop. Patient ever since admission has been anemic. Iron studies suggest anemia of chronic disease.
Unclear if related to kidney dysfunction or secondary to more systemic process. Check erythropoietin level and if low will consider Epogen.
Aim to keep hemoglobin more than 7. Currently asymptomatic without any acute coronary syndromes.
Bone biopsy done-pending pathology.
Continue with PCNs-slow improvement in creatinine noted.
MRI of the abdomen with and without contrast shows no obvious malignancy but has moderate abdominopelvic ascites. There is discussions about diagnostic laparoscopy on Tuesday.
Original Note:
Today's Communication/Plan
-
Follow-up pathology results of yesterday's bone biopsy
Tentative plan for exploratory laparotomy with Dr. Jimenez on Tuesday
Monitor H&H, transfusing if hemoglobin continues to decrease
Continue to monitor clinical status
Assessment / Plan
Assessment / Plan
Patient is a 54-year-old female with no known past medical history who presented to the [facility] emergency department for evaluation of abnormal outpatient labs. The labs were completed after the patient attempted to establish care with
a PCP due to her fatigue, weight loss, abdominal bloating, early satiety, and solid stools since December of this year. [place] the [place] ago after living in [facility] for 14 years. Patient's labs on presentation included
the following: Cr 5.3, BUN 79, K 6.2, AST 39, ALT 43, alk phos 161, and lipase 451.
# Diffusely mixed lucent/lytic bone lesions
Patient presented with bloating for 4 months associated with weight loss, early satiety, and fatigue
No evidence for malignancy at this point based on the workup detailed below
Imaging studies:
-CTAP 06/06: 8.0 x 5.6 cm lobulated, minimally heterogenous lesion in the pelvis, possible malignancy; diffusely mixed lucent/lytic appearance of the axial and proximal appendicular skeleton
-Pelvic ultrasound (06/07): Per radiology, 5.7 cm irregular, lobular solid soft tissue mass surrounded by ascites; no normal uterus or ovaries identified
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
-Bone scan: Per radiology, diffuse symmetric osseous uptake of activity
-Breast ultrasound, mammogram (06/11): Per radiology, 2 solid masses observed. One is a stable fibroadenoma and the other is a suspected dermal lesion with benign appearance.
-MRI abdomen (06/13): Per radiology, no obvious site of primary neoplasm in the abdomen. Scattered osseous lesions suspicious for metastases. Moderate abdominopelvic ascites.
CA125 elevated, SPEP normal, CEA normal, negative ascitic cytology
Right iliac bone biopsy: Pathology pending
Consider exploratory laparotomy of pelvis pending pathology results of bone biopsy
Bucket Wash Operator-onc, heme-onc, breast surgery following
#Renal failure
Trend Cr: 5.3 on presentation, 3.2 today s/p bilateral PCN placement. Improving, though still markedly elevated.
Etiology of renal failure likely obstruction related to pelvic pathology
On presentation, patient reported bloating for the past 4 months, mildly distended abdomen
Patient reported she has not seen a physician in 20+ years
Abdominal ultrasound (06/05): Per radiology, ascites, fatty liver, b/l renal collecting system dilatation, possible IVC thrombus.
Bladder scan (06/05): Per radiology, pelvic ascites.
IVC/iliac ultrasound: IVC and iliacs are patent
Paracentesis performed 06/06. SAAG approximately 2.1
CTAP 06/06: Per radiology, severe bilateral hydronephrosis without obstructing stone; 8.0 x 5.6 cm lobulated, minimally heterogenous lesion in the pelvis, possible malignancy; diffusely mixed lucent/lytic appearance of the axial and proximal
appendicular skeleton
Patient informed HD could be necessary, pending evaluation by nephrology
Bilateral nephrostomy tubes placed 06/07/2025 for treatment of hydronephrosis 2/2 suspected obstruction related to pelvic pathology
Slightly red-tinged urine draining from right nephrostomy tube drainage bag (improved from prior days), clear yellow urine in left drainage bag; patient now otherwise producing minimal clear urine
Nephrology, urology, IR, Bucket Wash Operator-onc, gynecology, heme-onc, breast surgery following
#Anemia
Hgb 7.6 today, stable s/p 1 unit PRBCs (06/05)
Patient currently asymptomatic (she states fatigue is chronic, not new), and joint decision was made to defer transfusion for now
Suspected 2/2 renal failure or chronic disease
Heme test stools: Negative
Continue to monitor PCN drainage for signs of bleeding
Consider EPO stimulating agent if Hgb continues to decrease
Trend CBC
Transfuse Hgb <7
#Hyperkalemia
K 4.1, stable
Continue low potassium diet
Monitor BMP
#Transaminitis
Mild elevations of LFTs, continue to monitor
LFTs not substantially changed from those on presentation
Abdominal ultrasound (06/05) as detailed above
#Moderate protein calorie malnutrition of chronic illness
BMI 17.4
DVT PPx: SC heparin
CODE STATUS: Full
Anticipated Discharge: > 48 hours
Anticipated Discharge: > 48 hours
Subjective/Interval History
-
Date of Service: June 14, 2025
Patient is seen at the bedside on hospital day #11. Nursing reports NAEO. Patient states she had a 'good' bowel movement in the last day, which was loose and nonbloody. She has not made any urine other than in her nephrostomy drainage bags.
Objective Data
-
Labs:
Laboratory Results
06/14/25
05:53
WBC 5.1
Hgb 7.6 L D
Hct 21.7 L
Plt Count 197 D
Sodium 133 L
Potassium 4.1
Chloride 105
Carbon Dioxide 19 L
BUN 66 H
Creatinine 3.2 H
Glucose 115 H
Calcium 9.0
Vital Signs:
Vital Signs
Temp Pulse Resp BP Pulse Ox
98.0 F 101 18 126/73 99
06/14/25 07:00 06/14/25 08:40 06/14/25 07:00 06/14/25 08:40 06/14/25 07:00
I&O
06/13/25 06/14/25 06/15/25
06:59 06:59 06:59
Intake Total 3660 / 3660 600 / 600
Output Total 5505 / 5505 1450 / 1450
Balance -1845 / -1845 -850 / -850
Review of Systems
-
History Source: Patient
Constitutional: Reports Fatigue (Unchanged from prior days. Patient also states her fatigue is much longer-term.); Denies Fever, Chills or Weakness
EENT: Reports No Symptoms Reported
Respiratory: Denies Cough, Trouble Breathing or Wheezing
Cardiac: Denies Chest Pain, Palpitations or Syncope
Abdomen/GI: Reports Bloated; Denies Abdominal Pain, Nausea, Vomiting, Diarrhea, Bloody Stools, Black Stools or Hematemesis
Genitourinary: Reports Other (Patient only making urine in her nephrostomy bags over the past day)
Musculoskeletal: Denies Edema
Skin: Reports No Symptoms
Neuro: Denies Dizzy, Headache, Weakness, Numbness or Lightheadedness
Hematologic / Lymphatic: Denies Bleeding or Bruising
Physical Exam
-
General: Well Developed, Well Nourished, No Apparent Distress, Comfortable and Conversant; Negative Pain, Fever, Chills or Sweats
HEENT: Normocephalic and Atraumatic
Respiratory: Clear to Auscultation and Non Labored Respirations; Negative Wheezes or Crackles
Cardiac: Regular Rhythm and S1/S2; Negative Murmur, Rub, Gallop, Tachycardic or Bradycardic
GI: Soft, Nontender, Normal Bowel Sounds and Distended (Mildly in the setting of known ascites)
Genito-urinary: Nephrostomy Tubes (PCN tube incision sites clean, dry, intact)
Skin: Other (No ecchymoses type PCN incision sites or bone biopsies; trace dried blood at bone biopsy site under dressing)
Neuro: Awake, AO x 3, No Motor Deficits and No Sensory Deficits
Psych: Calm
--- NOTE | 2025-06-14 13:13 | W.PN.NEPH.PH ---
Today's Communication / Plan
-
AM labs
Assessment/Plan
-
IMP:
Renal Failure -AVERY vs CKD
Hyperkalemia
Non-Gapped Metabolic Acidosis
Abnormal LFTs
Normocytic Anemia
Elevated BPs
Mild hyperphosphatemia
Plan:
A/w abnormal labs, high cr
AVERY vs CKD-no baseline to compare
Creatinine continues to improve
Status post bilateral PCNs 06/07/25 re: obstruction
No need for uterine mass biopsy= no gynecological malignancy and pelvic organs per [facility] oncology
negative for monoclonal protein
Cytology from paracentesis showed atypical cells, favoring a reactive process. CEA tumor marker was slightly elevated 8.46 and CA125 elevated at 419. SPEP was negative for monoclonal protein.
Hematology oncology consulted noted
renal diet
avoid nephrotoxins , no h/o NSAIDs
No more IV fluids required at this time
A.m. labs
-
-
Date of Service: June 14, 2025
CC / HPI / ROS
-
Chief Complaint:
AVERY
History of Present Illness:
cr down to 3.6.
met acidosis better bicarb 19
BP stable
s/p paracentesis 1.1
no fever
Review of Systems:
feels better post para
no cp or sob
Bilateral nephrostomy tubes: non oliguric L>R
Labs
-
Labs:
WBC 5.1 10^3/uL (4.8-10.8) 06/14/25 05:53
RBC 2.55 10^6/uL (4.20-5.40) L 06/14/25 05:53
Hgb 7.6 g/dL (12.0-16.0) L D 06/14/25 05:53
Hct 21.7 % (37.0-47.0) L 06/14/25 05:53
Plt Count 197 10^3/uL (130-400) D 06/14/25 05:53
Sodium 133 mmol/L (135-145) L 06/14/25 05:53
Potassium 4.1 mmol/L (3.5-5.1) 06/14/25 05:53
Chloride 105 mmol/L (98-107) 06/14/25 05:53
Carbon Dioxide 19 mmol/L (22-30) L 06/14/25 05:53
BUN 66 mg/dl (7-17) H 06/14/25 05:53
Creatinine 3.2 mg/dL (0.6-1.0) H 06/14/25 05:53
eGFR 16.37 06/14/25 05:53
Glucose 115 mg/dl (70-99) H 06/14/25 05:53
Calcium 9.0 mg/dl (8.4-10.2) 06/14/25 05:53
Phosphorus 5.6 mg/dl (2.5-4.5) H 06/05/25 05:29
Izx-L-Bkdybizbwuv Pept 1720 pg/ml 06/05/25 05:29
Albumin 3.9 g/dl (3.5-5.0) 06/07/25 06:03
Physical Exam
-
Vital Signs:
Vital Signs
Temp Pulse Resp BP Pulse Ox
98.0 F 101 18 126/73 99
06/14/25 07:00 06/14/25 08:40 06/14/25 07:00 06/14/25 08:40 06/14/25 07:00
--- NOTE | 2025-06-14 14:08 | W.PN.URO.CBU ---
Today's Communication / Plan
-
await bone arrow bx may need laparocopt]=y
Assessment / Plan
-
54F with severe bilateral hydronephrosis, pelvic mass, ascites, weight loss, acute vs chronic renal failure
s/p b/l percutaneous nephrostomy placement 06/07/25
Bilateral ureteral obstruction of unclear nature - would suspect large pelvic mass as the cause but ureters are not grossly dilated. Bilateral UPJ obstruction from benign retroperitoneal fibrosis or metastatic malignancy is anternative possibility
Will require additional evaluation/management, likely to be done on outpatient basis but dependent on additional findings of inpatient workup
Needs further workup of pelvic mass and bone lesions to rule out malignancy
Bladder US shows normal bladder wall without intramural mass, normal UA - very low suspicion for primary urologic malignancy
No urinary retention on renal US
Removey removed and voided without difficulty prior to PCNs
She may or may not void at all now post nephrostomy placement
Diagnosis
-
Date of Service: June 14, 2025
-
Patient Diagnosis:
Post Op Day:
Patient Diagnosis:
Post Op Day:
Patient Diagnosis:
bilateral hydronephrosis
elevated creatinine
pelvic mass
ascites
Post Op Day:
Subjective
-
tolerating perc tubes
Objective
-
Vital Signs
Temp Pulse Resp BP Pulse Ox
98.0 F 101 18 126/73 99
06/14/25 07:00 06/14/25 08:40 06/14/25 07:00 06/14/25 08:40 06/14/25 07:00
Intake and Output
06/13/25 06/14/25 06/15/25
06:59 06:59 06:59
Intake Total 3660 / 3660 600 / 600
Output Total 5505 / 5505 1450 / 1450
Balance -1845 / -1845 -850 / -850
Intake:
Oral fluids 3660 / 3660 600 / 600
Output:
Urinary Drain Output (Total) 5505 / 5505 1450 / 1450
Left Nephrostomy 4450 / 4450 1150 / 1150
Right Nephrostomy 1055 / 1055 300 / 300
Other:
Number of approximated MODERATE 4
amounts of urine
Laboratory Results
06/14/25 05:53
06/14/25 05:53
Review of Systems
-
: No Symptoms
Physical Exam
-
General - well developed, well nourished, no acute distress
Chest - clear bilaterally
Abdomen - soft, non-tender, positive bowel sounds, no CVAT, no incisional pain or distention
Genitalia - normal
Rectal - normal
Skin - warm & dry with no rash
Neuro - AOx3, no motor deficits
Extremities - no clubbing, no cyanosis, no edema
Incision - clean, dry
Dressing - clean, dry, intact
--- NOTE | 2025-06-14 14:13 | W.PN.ONC2 ---
Today's Communication / Plan
-
- bone bx pending.
- down trending hgb again. transfuse for hgb < 7.0 g/dl.
- renal function slowly improving s/p PCNs.
Impression
Impression
ascites, with high SAAG and negative cytology (reactive mesothelial cells). slow re-accumulation. consider repeat para prior to discharge if worsening symptoms.
Renal failure, acuity unknown, at least partially due to obstruction, with hydronephrosis, s/p perc nephrostomy tubes. Cr slowly downtrending.
anemia, no iron def, normal SPEP, UPEP; suspect related to CKD. can consider role for epo agonist outpt depending on anemia improvement with renal recovery.
benign appearing breast masses
uterine fibroids, no ASSISTANT TRACK AND FIELD COACH or other obvious primary malignancy seen on MRI; CA125 elevation (could be from fibroids, peritoneal inflammation/stretching from ascites)
Diffusely abnormal bones on imaging (normal SPEP, UPEP makes myeloma unlikely). s/p bone lesion bx 06/13, path pending. if this is non-diagnostic will need ex-lap to further assess peritoneum.
will arrange close oncology follow up to review path and discuss next steps in managment.
Plan
Plan
Clinical picture is complicated and etiology unclear
No evidence for malignancy thus far - based on ascites cytology, pelvic MRI, breast imaging. Bone lesions could be from CKD- mineral and bone disorder. s/p bx 06/13, path pending
CKD could explain her anemia. no nutritional deficiencies, bleeding symptoms. monitor CBC daily, transfuse for hgb < 7.0 g/dl.
Subjective/Objective
Chief Complaint
ascites, bone lesions
Subjective
no new complaints today. She feels abdomen may be slowly distending again after para. Denies nausea, abdominal pain, bone pain. She is moving bowels with current regimen.
Vital Signs:
Vital Signs
Temp Pulse Resp BP Pulse Ox
98.0 F 101 18 126/73 99
06/14/25 07:00 06/14/25 08:40 06/14/25 07:00 06/14/25 08:40 06/14/25 07:00
Lab Results:
Laboratory Data
WBC 5.1 10^3/uL (4.8-10.8) 06/14/25 05:53
Hgb 7.6 g/dL (12.0-16.0) L D 06/14/25 05:53
Plt Count 197 10^3/uL (130-400) D 06/14/25 05:53
PT 14.9 Sec (11.4-14.6) H 06/05/25 05:29
INR 1.14 06/05/25 05:29
eGFR 16.37 06/14/25 05:53
Physical Exam
HEENT: No Jaundice
Cardiology: Normal Sinus Rhythm
Pulmonary: Clear
GI: Normal Bowel Sounds, Distended and Tense
Extremities: No Edema
Neuro: Non Focal
Review of Systems
Review of Systems
Constitutional: Denies Fever
Respiratory: Denies Dyspnea
Cardiovascular: Denies Chest Pain
Gastrointestinal: Denies Nausea/Vomiting or Diarrhea
Skin: Denies Rash
Neurological: Denies Headache
--- NOTE | 2025-06-14 14:52 | CM ---
Pt remains hospitalized with ascites, new nephrostomy tubes, lesion in the pelvis, possible malignancy with biopsy pending results.
She remains ambulatory in the room and in the hallways.
Support provided.
CM to continue to follow for all discharge planning needs.
[2025-06-14 15:00] VITALS: BP 121/75
[2025-06-14 23:00] VITALS: BP 118/68
[2025-06-15 06:00] VITALS: BMI 17.6
[2025-06-15 06:31] LABS: Hematocrit 23.4 % (37.0-47.0); Hemoglobin 7.9 g/dL (12.0-16.0); Mean Corp Hgb Conc. 33.8 g/dL (33.0-37.0); Mean Corpuscular Volume 85.7 fL (81.0-99.0); Platelet Count 228 10^3/uL (130-400); Red Cell Dist. Width 13.7 % (11.5-14.5)
[2025-06-15 07:00] VITALS: BP 108/67
[2025-06-15 07:02] LABS: Blood Urea Nitrogen 60 mg/dl (7-17); Calcium 8.8 mg/dl (8.4-10.2); Carbon Dioxide 19 mmol/L (22-30); Chloride 104 mmol/L (98-107); Estimated Creatinine Clearance 14 ml/min; Glucose 120 mg/dl (70-99); Potassium 4.0 mmol/L (3.5-5.1); Sodium 134 mmol/L (135-145); eGFR 16.37
[2025-06-15] MEDS: SODIUM BICARBONATE 325 MG PO ×3 (09:18→20:27)
[2025-06-15] MEDS: MIRALAX PO (09:20)
[2025-06-15] MEDS: HEPARIN SC ×2 (09:20→20:27)
[2025-06-15] MEDS: NORVASC PO (09:20)
--- NOTE | 2025-06-15 09:20 | W.PN.HOSP.TC ---
Addendum entered and electronically signed by Ramses Melvin MD 06/15/25 15:24:
Seen and examined by me independently in collaboration with the medical instrument technician.
Lab data reviewed.
Addendum as below :
Feels lower abdominal slightly more distended. Clinical with mild distention but no tenderness of lower abdomen. Tympanic in nature on percussion.
No fever or chills. Tolerating diet.
Follow bone biopsy report. Tentative diagnostic laparoscopy starting of the /Tuesday per [facility] oncology.
Follow erythropoietin levels and consider Epogen depending on level.
Follow H&H for now. Hold on transfusion as she is asymptomatic.
Original Note:
Today's Communication/Plan
-
Follow-up pathology results of recent bone biopsy
Tentative plan for exploratory laparotomy with Dr. Murrell on Tuesday
Monitor kidney function s/p bilateral PCN placement
Monitor H&H, transfusing as necessary
Continue to monitor clinical status
Assessment / Plan
Assessment / Plan
Patient is a 54-year-old female with no known past medical history who presented to the [facility] emergency department for evaluation of abnormal outpatient labs. The labs were completed after the patient attempted to establish care with
a PCP due to her fatigue, weight loss, abdominal bloating, early satiety, and solid stools since December of this year. [place] the [place] a [place] ago after living in [facility] for 14 years. Patient's labs on presentation included
the following: Cr 5.3, BUN 79, K 6.2, AST 39, ALT 43, alk phos 161, and lipase 451.
# Diffusely mixed lucent/lytic bone lesions
Patient presented with bloating for 4 months associated with weight loss, early satiety, and fatigue
No evidence for malignancy at this point based on the workup detailed below
Imaging studies:
-CTAP 06/06: 8.0 x 5.6 cm lobulated, minimally heterogenous lesion in the pelvis, possible malignancy; diffusely mixed lucent/lytic appearance of the axial and proximal appendicular skeleton
-Pelvic ultrasound (06/07): Per radiology, 5.7 cm irregular, lobular solid soft tissue mass surrounded by ascites; no normal uterus or ovaries identified
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
-Bone scan: Per radiology, diffuse symmetric osseous uptake of activity
-Breast ultrasound, mammogram (06/11): Per radiology, 2 solid masses observed. One is a stable fibroadenoma and the other is a suspected dermal lesion with benign appearance.
-MRI abdomen (06/13): Per radiology, no obvious site of primary neoplasm in the abdomen. Scattered osseous lesions suspicious for metastases. Moderate abdominopelvic ascites.
CA125 elevated, SPEP normal, CEA normal, negative ascitic cytology
Right iliac bone biopsy: Pathology pending
Plan for exploratory laparotomy of pelvis on Tuesday
Optical Brightener Maker Helper-onc, heme-onc, breast surgery following
#Renal failure
Trend Cr: 5.3 on presentation, 3.2 today s/p bilateral PCN placement. Improving, though still markedly elevated.
Etiology of renal failure likely obstruction related to pelvic pathology
On presentation, patient reported bloating for the past 4 months, mildly distended abdomen
Patient reported she has not seen a physician in 20+ years
Imaging studies:
-Abdominal ultrasound (06/05): Per radiology, ascites, fatty liver, b/l renal collecting system dilatation, possible IVC thrombus.
-Bladder scan (06/05): Per radiology, pelvic ascites.
-IVC/iliac ultrasound: IVC and iliacs are patent
-CTAP 06/06: Per radiology, severe bilateral hydronephrosis without obstructing stone; 8.0 x 5.6 cm lobulated, minimally heterogenous lesion in the pelvis, possible malignancy; diffusely mixed lucent/lytic appearance of the axial and proximal
appendicular skeleton
Paracentesis performed 06/06. SAAG approximately 2.1
Per nephrology, no HD necessary for now
Bilateral nephrostomy tubes placed 06/07/2025 for treatment of hydronephrosis 2/2 suspected obstruction related to pelvic pathology
Slightly red-tinged urine draining from right nephrostomy tube drainage bag (improved from prior days), clear yellow urine in left drainage bag; patient now otherwise producing minimal clear urine
Nephrology, urology, IR, Optical Brightener Maker Helper-onc, gynecology, heme-onc, breast surgery following
#Anemia
Hgb 7.9 today, stable s/p 1 unit PRBCs (06/05)
Patient currently asymptomatic (she states fatigue is chronic, not new), and joint decision was made to defer transfusion for now
Suspected 2/2 renal failure or chronic disease
Heme test stools: Negative
Continue to monitor PCN drainage for signs of bleeding
EPO pending
Consider EPO stimulating agent if Hgb continues to decrease
Trend CBC
Transfuse Hgb <7
#Hyperkalemia
K 4.0, stable
Continue low potassium diet
Monitor BMP
#Transaminitis
Mild elevations of LFTs, continue to monitor
LFTs not substantially changed from those on presentation
Abdominal ultrasound (06/05) as detailed above
#Moderate protein calorie malnutrition of chronic illness
BMI 17.4
DVT PPx: SC heparin
CODE STATUS: Full
Anticipated Discharge: > 48 hours
Anticipated Discharge: > 48 hours
Subjective/Interval History
-
Date of Service: June 15, 2025
Patient seen at bedside Hospital day #12. No current complaints. Patient states that she has been making a bit more clear, yellow urine over the last day. Discussed with patient the plan for likely exploratory laparotomy early next week to better
elucidate abdominopelvic pathology given the lack of clear source of her renal failure/prior hydronephrosis and bone lesions. Patient understandably wants to go home given the length of stay. However, she communicates understanding of the
importance of further workup.
Objective Data
-
Labs:
Laboratory Results
06/15/25
06:05
WBC 5.6
Hgb 7.9 L
Hct 23.4 L
Plt Count 228
Sodium 134 L
Potassium 4.0
Chloride 104
Carbon Dioxide 19 L
BUN 60 H
Creatinine 3.2 H
Glucose 120 H
Calcium 8.8
Vital Signs:
Vital Signs
Temp Pulse Resp BP Pulse Ox
98.0 F 95 17 108/67 100
06/15/25 07:00 06/15/25 07:00 06/15/25 07:00 06/15/25 07:00 06/15/25 07:00
I&O
06/14/25 06/15/25 06/16/25
06:59 06:59 06:59
Intake Total 600 / 600 2520 / 2520
Output Total 1450 / 1450 1925 / 3400 1475 / 1475
Balance -850 / -850 595 / -880 -1475 / -1475
Review of Systems
-
History Source: Patient
Constitutional: Reports Fatigue (Chronic); Denies Fever or Chills
EENT: Reports No Symptoms Reported
Respiratory: Denies Cough, Trouble Breathing or Wheezing
Cardiac: Denies Chest Pain, Palpitations or Syncope
Abdomen/GI: Reports Constipated (BMs over the past couple days) and Bloated; Denies Abdominal Pain, Nausea, Vomiting, Diarrhea, Bloody Stools or Black Stools
Genitourinary: Reports Other (Other than via the nephrostomy tubes, patient is producing increasing (though still small) amount of clear, yellow urine); Denies Dysuria or Difficulty Voiding
Musculoskeletal: Denies Edema
Skin: Reports No Symptoms
Neuro: Denies Headache, Weakness, Numbness or Lightheadedness
Physical Exam
-
General: Well Developed, Well Nourished, No Apparent Distress, Comfortable and Conversant
HEENT: Normocephalic and Atraumatic
Respiratory: Clear to Auscultation and Non Labored Respirations; Negative Wheezes or Crackles
Cardiac: Regular Rhythm and S1/S2; Negative Murmur, Rub or Gallop
GI: Soft, Nontender and Normal Bowel Sounds
Genito-urinary: Nephrostomy Tubes (Clean, dry, intact bilaterally; no edema or ecchymosis at incision sites)
Musculoskeletal: No Cyanosis and No Edema
Skin: Warm, Dry and Other (TTP bone biopsy site, though no edema or ecchymosis)
Neuro: Awake, AO x 3, No Motor Deficits and No Sensory Deficits
Psych: Calm
[2025-06-15] MEDS: TYLENOL 650 MG PO ×2 (09:22→20:27)
[2025-06-15 15:00] VITALS: BP 120/73
--- NOTE | 2025-06-15 17:46 | PTCARENOTE ---
pt feels abd more distended today. medicated with PRN Tylenol for pain at biopsy site with good relief. reports no stools, tolerating diet, independent ambulating frequently in room and hallway.vss, will continue to monitor.
[2025-06-15] MEDS: MIRALAX 17 GRAMS PO (20:27)
--- NOTE | 2025-06-15 21:05 | W.PN.GYNONC ---
Today's Communication
-
OR on Tuesday
IV fluids
check ECHO
needs NPO after Mn
Impression / Plan
-
# Pelvic Mass
Cytology of peritoneal fluid is favored to be atypical and reactive mesothelial cells.
At this time there is no definitive malignancy
MRI of pelvis showed a fibroid uterus, normal ovaries
There is no pelvic mass.
CA 125 is elevated
I am planning to proceed with Robotic assisted laparoscopy, BSO, and omental biopsy on Sunday 06/17 PM in order to gain some additional insight into what is her etiology of underlying problem leading to renal failure, and ascites. I will also do EUA,
pap, D&C, doubt we need to do Hyst as there does not seem benefit from that. Patient is agreeable, understands the rationale behing why that is potentially beneficial as the next diagnostic step. She understands the surgery is diagnostic and not
intended to be therapeutic.
# Bone lesions on CT
Nuclear medicine bone scan appears to be widespread abnormalities, malignancy versus metabolic bone disease
Bone biopsy done, path pending
# breast lesion assessed and benign
#Renal failure
Cr is 3.2, trial of IV hydration
Nephrology following
#Anemia
improved since admission due to transfusion, now hgb is 7-8 range
probably due to renal failure
T&S for OR
#Hyperkalemia
resolved
#Transaminitis
Mild elevations, trivial
#Elevated BNP, prob due to anemia causing chf, ECHO ordered
# Constipation, continue Miralax BID prn and I will add enemas pre op
Cesar Murrell MD
[facility]
[phone]
Subjective / Interval History
-
I spoke with her extensively today, she is frustrated by slow pace of improvement and prolonged hospital stay.
she is voiding now
she still has some lower abdomen bloating and discomfort
had a BM yesterday
Objective Data
-
Lab Results:
06/15/25 06:05
06/15/25 06:05
Physical Exam
Vital Signs / I&O
Vitals
Temp Pulse Resp BP Pulse Ox
98.1 F 101 16 120/73 100
06/15/25 15:00 06/15/25 15:00 06/15/25 15:00 06/15/25 15:00 06/15/25 15:00
I&O
06/13/25 06/14/25 06/15/25 06/16/25
06:59 06:59 06:59 06:59
Intake Total 3660 / 3660 600 / 600 2520 / 2520 1020 / 1020
Output Total 5505 / 5505 1450 / 1450 1925 / 3400 3675 / 3675
Balance -1845 / -1845 -850 / -850 595 / -880 -2655 / -2655
[2025-06-15 23:00] VITALS: BP 109/64
[2025-06-16] MEDS: NSS 1000 IV (00:37)
[2025-06-16 06:00] VITALS: BMI 17.7
[2025-06-16 06:36] LABS: Hematocrit 21.4 % (37.0-47.0); Hemoglobin 7.3 g/dL (12.0-16.0); Mean Corp Hgb Conc. 34.1 g/dL (33.0-37.0); Mean Corpuscular Volume 86.6 fL (81.0-99.0); Platelet Count 189 10^3/uL (130-400); Red Cell Dist. Width 13.8 % (11.5-14.5)
[2025-06-16 07:00] VITALS: BP 123/78
[2025-06-16 07:13] LABS: Blood Urea Nitrogen 53 mg/dl (7-17); Calcium 8.6 mg/dl (8.4-10.2); Carbon Dioxide 20 mmol/L (22-30); Chloride 109 mmol/L (98-107); Estimated Creatinine Clearance 15 ml/min; Glucose 114 mg/dl (70-99); Potassium 4.3 mmol/L (3.5-5.1); Sodium 137 mmol/L (135-145); eGFR 17.69
[2025-06-16] MEDS: HEPARIN SC ×2 (08:07→21:30)
[2025-06-16] MEDS: SODIUM BICARBONATE 325 MG PO ×3 (08:08→21:30)
--- NOTE | 2025-06-16 08:13 | W.PN.HOSP.TC ---
Addendum entered and electronically signed by Ramses Melvin MD 06/16/25 12:06:
Seen and examined by me independently in collaboration with the director medical surgical.
Lab data reviewed.
Addendum as below :
Voices no specific complaints.
Awaiting bone biopsy pathology report.
For diagnostic laparoscopy tomorrow by Dr. Murrell.
Original Note:
Today's Communication/Plan
-
Plan for RAL with Dr. Murrell tomorrow for further evaluation, BSO, omental biopsy
Follow-up pathology results of recent bone biopsy
Monitor H&H and EPO, consider transfusion if any symptoms develop or Hgb <7
Monitor kidney function s/p bilateral PCN placement
Continue to monitor clinical status
Assessment / Plan
Assessment / Plan
Patient is a 54-year-old female with no known past medical history who presented to the [facility] emergency department for evaluation of abnormal outpatient labs. The labs were completed after the patient attempted to establish care with
a PCP due to her fatigue, weight loss, abdominal bloating, early satiety, and solid stools since December of this year. [place] the [place] a [place] months ago after living in [facility] for 14 years. Patient's labs on presentation included
the following: Cr 5.3, BUN 79, K 6.2, AST 39, ALT 43, alk phos 161, and lipase 451.
# Diffusely mixed lucent/lytic bone lesions
Patient presented with bloating for 4 months associated with weight loss, early satiety, and fatigue
No evidence for malignancy at this point based on the workup detailed below
Imaging studies:
-CTAP 06/06: 8.0 x 5.6 cm lobulated, minimally heterogenous lesion in the pelvis, possible malignancy; diffusely mixed lucent/lytic appearance of the axial and proximal appendicular skeleton
-Pelvic ultrasound (06/07): Per radiology, 5.7 cm irregular, lobular solid soft tissue mass surrounded by ascites; no normal uterus or ovaries identified
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
-Bone scan: Per radiology, diffuse symmetric osseous uptake of activity
-Breast ultrasound, mammogram (06/11): Per radiology, 2 solid masses observed. One is a stable fibroadenoma and the other is a suspected dermal lesion with benign appearance.
-MRI abdomen (06/13): Per radiology, no obvious site of primary neoplasm in the abdomen. Scattered osseous lesions suspicious for metastases. Moderate abdominopelvic ascites.
CA125 elevated, SPEP normal, CEA normal, negative ascitic cytology
Right iliac bone biopsy: Pathology pending
Plan for robot-assisted laparoscopy tomorrow afternoon (06/17) with Dr. Murrell for further evaluation, BSO, omental biopsy
Licensed Tax Consultant-onc, heme-onc, breast surgery following
#Renal failure
Trend Cr: 5.3 on presentation, 3.0 today s/p bilateral PCN placement. Improving, though still markedly elevated.
Etiology of renal failure likely obstruction related to pelvic pathology
On presentation, patient reported bloating for the past 4 months, mildly distended abdomen
Patient reported she has not seen a physician in 20+ years
Imaging studies:
-Abdominal ultrasound (06/05): Per radiology, ascites, fatty liver, b/l renal collecting system dilatation, possible IVC thrombus.
-Bladder scan (06/05): Per radiology, pelvic ascites.
-IVC/iliac ultrasound: IVC and iliacs are patent
-CTAP 06/06: Per radiology, severe bilateral hydronephrosis without obstructing stone; 8.0 x 5.6 cm lobulated, minimally heterogenous lesion in the pelvis, possible malignancy; diffusely mixed lucent/lytic appearance of the axial and proximal
appendicular skeleton
Paracentesis performed 06/06. SAAG approximately 2.1
Per nephrology, no HD necessary for now
Bilateral nephrostomy tubes placed 06/07/2025 for treatment of hydronephrosis 2/2 suspected obstruction related to pelvic pathology
Slightly red-tinged urine draining from right nephrostomy tube drainage bag (improved from prior days), clear yellow urine in left drainage bag; patient now otherwise producing minimal clear urine
Nephrology, urology, IR, Licensed Tax Consultant-onc, gynecology, heme-onc, breast surgery following
#Anemia
Hgb 7.3 today, stable s/p 1 unit PRBCs (06/05)
Patient currently asymptomatic (in fact, endorses more energy today)
Suspected 2/2 renal failure or chronic disease
Heme test stools: Negative
Continue to monitor PCN drainage for signs of bleeding. Minimal red-tinged urine in right nephrostomy bag, improved relative to prior days.
EPO pending
Consider EPO stimulating agent if Hgb continues to decrease, pending EPO level
No signs of active bleeding
Trend CBC
Transfuse Hgb <7
#Hyperkalemia
K 4.3, stable
Continue low potassium diet
Monitor BMP
#Transaminitis
Mild elevations of LFTs, continue to monitor
LFTs not substantially changed from those on presentation
Abdominal ultrasound (06/05) as detailed above
#Moderate protein calorie malnutrition of chronic illness
BMI 17.7
DVT PPx: SC heparin
CODE STATUS: Full
Anticipated Discharge: > 48 hours
Anticipated Discharge: > 48 hours
Subjective/Interval History
-
Date of Service: June 16, 2025
Patient seen at the bedside on hospital day #13. Nursing reports NAEO. Patient states she feels 'great' and slept very well last night. She feels less fatigued than recent days. She had a small bowel movement this morning, no blood noted. She
did not urinate overnight. Discussed plan for robot-assisted laparoscopy with Dr. Murrell tomorrow. No current complaints.
Objective Data
-
Labs:
Laboratory Results
06/16/25
06:12
WBC 4.5 L
Hgb 7.3 L
Hct 21.4 L
Plt Count 189
Sodium 137
Potassium 4.3
Chloride 109 H
Carbon Dioxide 20 L
BUN 53 H
Creatinine 3.0 H
Glucose 114 H
Calcium 8.6
Vital Signs:
Vital Signs
Temp Pulse Resp BP Pulse Ox
98.3 F 99 18 123/78 99
06/16/25 07:00 06/16/25 07:00 06/16/25 07:00 06/16/25 07:00 06/16/25 07:00
I&O
06/15/25 06/16/25 06/17/25
06:59 06:59 06:59
Intake Total 2520 / 2520 1140 / 1140
Output Total 1925 / 3400 4925 / 4925
Balance 595 / -880 -3785 / -3785
Review of Systems
-
History Source: Patient
Constitutional: Reports Fatigue (Chronic, improved today relative to recent days); Denies Fever, Chills or Weakness
EENT: Reports No Symptoms Reported
Respiratory: Denies Cough, Trouble Breathing or Wheezing
Cardiac: Denies Chest Pain, Palpitations or Syncope
Abdomen/GI: Reports Constipated (Consistently having small bowel movements); Denies Abdominal Pain, Nausea, Vomiting, Bloody Stools or Black Stools
Genitourinary: Reports Other (Producing minimal urine other than her nephrostomy drainage bags; patient notes urine draining into nephrostomy bags have been consistently clear yellow on the left and minimally red-tinged on right)
Musculoskeletal: Denies Edema
Skin: Reports No Symptoms
Neuro: Denies Dizzy, Headache, Weakness, Numbness or Lightheadedness
Hematologic / Lymphatic: Denies Bleeding or Bruising
Physical Exam
-
General: Well Developed, Well Nourished, No Apparent Distress, Comfortable and Conversant; Negative Pain, Fever, Chills or Sweats
HEENT: Normocephalic and Atraumatic
Respiratory: Clear to Auscultation and Non Labored Respirations; Negative Wheezes or Crackles
Cardiac: Regular Rhythm and S1/S2
GI: Soft, Nontender and Normal Bowel Sounds
Genito-urinary: No Costovertebral Tender, Clear Urine (Clear, yellow urine draining left nephrostomy drainage bag), Bloody Urine (Minimally red-tinged, clear urine draining into nephrostomy drainage bag on right; less red-tinged than recent days)
and Nephrostomy Tubes (Nephrostomy tube incision sites clean, dry, intact bilaterally)
Musculoskeletal: No Cyanosis and No Edema
Skin: Dry and Other (No pallor noted; hands are slightly cool, though patient notes this is normal for her)
Neuro: Awake, AO x 3, No Motor Deficits and No Sensory Deficits
Psych: Calm
[2025-06-16] MEDS: NORVASC PO (08:14)
[2025-06-16] MEDS: MIRALAX 17 GRAMS PO ×2 (08:14→21:30)
--- NOTE | 2025-06-16 12:41 | CM ---
Patient chart reviewed
For diagnostic laparoscopy tomorrow by Dr. Murrell.
Called Lisa regarding HRSI-MA pending & left her a message
PLAN: FER REYES to follow hospital progress for needs
--- NOTE | 2025-06-16 14:51 | W.PN.NEPH.PH ---
Today's Communication / Plan
-
AM labs
Assessment/Plan
-
IMP:
Renal Failure -AVERY vs CKD
Hyperkalemia
Non-Gapped Metabolic Acidosis
Abnormal LFTs
Normocytic Anemia
Elevated BPs
Mild hyperphosphatemia
Plan:
A/w abnormal labs, high cr
AVERY vs CKD-no baseline to compare
Creatinine continues to improve
Status post bilateral PCNs 06/07/25 re: obstruction
No need for uterine mass biopsy= no gynecological malignancy and pelvic organs per TELEVISION TECHNICIAN oncology
negative for monoclonal protein
Cytology from paracentesis showed atypical cells, favoring a reactive process. CEA tumor marker was slightly elevated 8.46 and CA125 elevated at 419. SPEP was negative for monoclonal protein.
Hematology oncology consulted noted
renal diet
avoid nephrotoxins , no h/o NSAIDs
For ex lap tomorrow
A.m. labs
-
-
Date of Service: June 16, 2025
CC / HPI / ROS
-
Chief Complaint:
AVERY
History of Present Illness:
cr down to 3.6.
met acidosis better bicarb 19
BP stable
s/p paracentesis 1.1
no fever
Review of Systems:
feels better post para
no cp or sob
Bilateral nephrostomy tubes: non oliguric L>R
Labs
-
Labs:
WBC 4.5 10^3/uL (4.8-10.8) L 06/16/25 06:12
RBC 2.47 10^6/uL (4.20-5.40) L 06/16/25 06:12
Hgb 7.3 g/dL (12.0-16.0) L 06/16/25 06:12
Hct 21.4 % (37.0-47.0) L 06/16/25 06:12
Plt Count 189 10^3/uL (130-400) 06/16/25 06:12
Sodium 137 mmol/L (135-145) 06/16/25 06:12
Potassium 4.3 mmol/L (3.5-5.1) 06/16/25 06:12
Chloride 109 mmol/L (98-107) H 06/16/25 06:12
Carbon Dioxide 20 mmol/L (22-30) L 06/16/25 06:12
BUN 53 mg/dl (7-17) H 06/16/25 06:12
Creatinine 3.0 mg/dL (0.6-1.0) H 06/16/25 06:12
eGFR 17.69 06/16/25 06:12
Glucose 114 mg/dl (70-99) H 06/16/25 06:12
Calcium 8.6 mg/dl (8.4-10.2) 06/16/25 06:12
Phosphorus 5.6 mg/dl (2.5-4.5) H 06/05/25 05:29
Fvs-I-Wyaisjwizbr Pept 1720 pg/ml 06/05/25 05:29
Albumin 3.9 g/dl (3.5-5.0) 06/07/25 06:03
Physical Exam
-
Vital Signs:
Vital Signs
Temp Pulse Resp BP Pulse Ox
98.3 F 99 18 123/78 100
06/16/25 07:00 06/16/25 07:00 06/16/25 07:00 06/16/25 07:00 06/16/25 08:00
Lung Excursion:: Normal
Abdomen:: Soft
Extremity Edema:: None: Bilateral:
Manzo Catheter: No
Other Findings::
Bilateral nephrostomy tubes
[2025-06-16 15:00] VITALS: BP 114/68
--- NOTE | 2025-06-16 17:23 | W.PN.GYNONC ---
Today's Communication
-
NPO after MN
Enema this evenig
check Hgb in AM
will have blood available
Impression / Plan
-
# Pelvic Mass
Cytology of peritoneal fluid is favored to be atypical and reactive mesothelial cells.
At this time there is no definitive malignancy
MRI of pelvis showed a fibroid uterus, normal ovaries
There is no pelvic mass.
CA 125 is elevated
I am planning to proceed with Robotic assisted laparoscopy, BSO, and omental biopsy on Sunday 06/17 PM in order to gain some additional insight into what is her etiology of underlying problem leading to renal failure, and ascites. I will also do EUA,
pap, D&C, doubt we need to do Hyst as there does not seem benefit from that. Patient is agreeable, understands the rationale behing why that is potentially beneficial as the next diagnostic step. She understands the surgery is diagnostic and not
intended to be therapeutic. Risks including ingfection, bleeding, injury to adjacent organs, DVT, PE, CV events discussed. Informed consetn will be signed
# Bone lesions on CT
Nuclear medicine bone scan appears to be widespread abnormalities, malignancy versus metabolic bone disease
Bone biopsy done, path pending as of end of last week as per Dr Chauncey Finn, will follow up on Tuesday
# breast lesion assessed and considered benign
#Renal failure
Cr is 3.0,
continue IV hydration
Nephrology following
#Anemia
improved since admission due to transfusion, now hgb is 7.3
plan is for transdusion below Hgb 7
probably due to renal failure
T&S for OR
#Hyperkalemia
resolved
#Transaminitis
Mild elevations, trivial
#Elevated BNP, prob due to anemia causing chf, ECHO ordered
# Constipation, continue Miralax BID prn and I will add enemas pre op
Cesar Murrell MD
[facility]
[phone]
Subjective / Interval History
-
denies any complaints
denies any pain or vomiting
Objective Data
-
Lab Results:
06/16/25 06:12
06/16/25 06:12
Physical Exam
Vital Signs / I&O
Vitals
Temp Pulse Resp BP Pulse Ox
98.2 F 111 18 114/68 99
06/16/25 15:00 06/16/25 15:00 06/16/25 15:00 06/16/25 15:00 06/16/25 15:00
I&O
06/14/25 06/15/25 06/16/25 06/17/25
06:59 06:59 06:59 06:59
Intake Total 600 / 600 2520 / 2520 1140 / 1140
Output Total 1450 / 1450 1925 / 3400 4925 / 4925
Balance -850 / -850 595 / -880 -3785 / -3785
Physical Exam
General: Well Nourished
HEENT: Moist Mucous Membranes
Respiratory: Clear and Non Labored Respirations
Cardiac: S1/S2 and Regular Rhythm
GI: Soft, Non Tender and Normal Bowel Sounds
Hematologic/Lymphatic: No Lymphadenopathy
Psych: Calm
[2025-06-16] MEDS: FLEET PHOSPHATE ENEMA-ADULT 135 ML RECTAL (17:31)
[2025-06-16 23:05] VITALS: BP 114/66
[2025-06-17] VITALS (11 sets, daily range): BP systolic 106–126; BP diastolic 64–81; BMI 17.6
[2025-06-17 07:29] LABS: Hematocrit 23.6 % (37.0-47.0); Hemoglobin 8.0 g/dL (12.0-16.0); Mean Corp Hgb Conc. 33.9 g/dL (33.0-37.0); Mean Corpuscular Volume 87.4 fL (81.0-99.0); Platelet Count 267 10^3/uL (130-400); Red Cell Dist. Width 13.8 % (11.5-14.5)
[2025-06-17] MEDS: SODIUM BICARBONATE 325 MG PO ×3 (07:46→21:30)
[2025-06-17] MEDS: NORVASC PO (07:47)
[2025-06-17] MEDS: MIRALAX 17 GRAMS PO ×2 (07:47→21:30)
[2025-06-17] MEDS: HEPARIN SC ×2 (07:51→21:24)
[2025-06-17 08:32] LABS: Blood Urea Nitrogen 49 mg/dl (7-17); Calcium 9.0 mg/dl (8.4-10.2); Carbon Dioxide 22 mmol/L (22-30); Chloride 106 mmol/L (98-107); Estimated Creatinine Clearance 15 ml/min; Glucose 112 mg/dl (70-99); Potassium 4.4 mmol/L (3.5-5.1); Sodium 136 mmol/L (135-145); eGFR 17.01
[2025-06-17] MEDS: FLEET PHOSPHATE ENEMA-ADULT 135 ML RECTAL (09:16)
--- NOTE | 2025-06-17 11:02 | W.PN.NEPH.PH ---
Today's Communication / Plan
-
Exploratory laparotomy
Assessment/Plan
-
IMP:
Renal Failure -AVERY vs CKD
Hyperkalemia
Non-Gapped Metabolic Acidosis
Abnormal LFTs
Normocytic Anemia
Elevated BPs
Mild hyperphosphatemia
Plan:
Follow BMP
Maintain bilateral percutaneous nephrostomies
Possible eventual internalization in the future
Exploratory laparotomy
Preliminary bone marrow biopsy with adenocarcinoma
Assessed with the patient and that full renal recovery may not be possible. We will need to see where her creatinine nadirs
-
-
Date of Service: June 17, 2025
CC / HPI / ROS
-
Chief Complaint:
AVERY
History of Present Illness:
cr down to 3.1
met acidosis better bicarb 22
BP stable
no fever
Review of Systems:
feels better post para
no cp or sob
Bilateral nephrostomy tubes: non oliguric L>R
Labs
-
Labs:
WBC 6.1 10^3/uL (4.8-10.8) 06/17/25 06:38
RBC 2.70 10^6/uL (4.20-5.40) L 06/17/25 06:38
Hgb 8.0 g/dL (12.0-16.0) L 06/17/25 06:38
Hct 23.6 % (37.0-47.0) L 06/17/25 06:38
Plt Count 267 10^3/uL (130-400) D 06/17/25 06:38
Sodium 136 mmol/L (135-145) 06/17/25 06:38
Potassium 4.4 mmol/L (3.5-5.1) 06/17/25 06:38
Chloride 106 mmol/L (98-107) 06/17/25 06:38
Carbon Dioxide 22 mmol/L (22-30) 06/17/25 06:38
BUN 49 mg/dl (7-17) H 06/17/25 06:38
Creatinine 3.1 mg/dL (0.6-1.0) H 06/17/25 06:38
eGFR 17.01 06/17/25 06:38
Glucose 112 mg/dl (70-99) H 06/17/25 06:38
Calcium 9.0 mg/dl (8.4-10.2) 06/17/25 06:38
Phosphorus 5.6 mg/dl (2.5-4.5) H 06/05/25 05:29
Lqq-C-Yagyjvkwkrh Pept 1720 pg/ml 06/05/25 05:29
Albumin 3.9 g/dl (3.5-5.0) 06/07/25 06:03
Physical Exam
-
Vital Signs:
Vital Signs
Temp Pulse Resp BP Pulse Ox
98.7 F 97 16 108/72 100
06/17/25 07:28 06/17/25 07:28 06/17/25 07:28 06/17/25 07:47 06/17/25 07:28
Cardiovascular:: Regular rate and rhythm
Respiratory:: Bilateral: CTA
Lung Excursion:: Normal
Abdomen:: Nontender and Soft
Bowel Sounds:: Normal
Extremity Edema:: None: Bilateral:
[2025-06-17 12:47] LABS: Acetaminophen < 10 ug/ml (10-30)
[2025-06-17] MEDS: DILAUDID 0.5 MG IV ×4 (14:06→22:56)
--- NOTE | 2025-06-17 15:24 | W.PN.HOSP.TC ---
Addendum entered and electronically signed by Abelardo Beltran MD 06/18/25 13:45:
AVERY versus progressive CKD, slughtly improved.
-Likely secondary to obstructive uropathy with bilateral hydro s/p PCNs
Did not require renal placement.
Nephrology is following
Metaolic acidosis
Resolved
Ascities, SAAG 2.2
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
Bilateral hydro
S/p PCN
Pelvic lesions with lytic bone lesions favored to be suspicious for metastatic lesions
CEA normal, CA125 high
[employer] oncology planning for robotic assisted laparoscopy, BSO, omental biopsy
Continue n.p.o.
S/p bone biopsy, results pending
Anemia, suspected secondary to chronic kidney disease s/p 1 unit PRBC
Transfuse if hemoglobin less than 7
SPEP negative for monoclonal protein
Hematology also following may consider EPO
Original Note:
Today's Communication/Plan
-
Follow-up pathology results of recent bone biopsy
Follow up CT Chest w/o IV contrast routine
Post-operative care
Monitor kidney function s/p bilateral PCN placement
Monitor H&H, transfusing as necessary
Continue to monitor clinical status
Assessment / Plan
Assessment / Plan
Patient is a 54-year-old female with no known past medical history who presented to the [facility] emergency department for evaluation of abnormal outpatient labs. The labs were completed after the patient attempted to establish care with
a PCP due to her fatigue, weight loss, abdominal bloating, early satiety, and solid stools since December of this year. [place] the [place] a few months ago after living in [facility] for 14 years. Patient's labs on presentation included
the following: Cr 5.3, BUN 79, K 6.2, AST 39, ALT 43, alk phos 161, and lipase 451.
# Diffusely mixed lucent/lytic bone lesions
Patient presented with bloating for 4 months associated with weight loss, early satiety, and fatigue
No evidence for malignancy at this point based on the workup detailed below
Imaging studies:
-CTAP 06/06: 8.0 x 5.6 cm lobulated, minimally heterogenous lesion in the pelvis, possible malignancy; diffusely mixed lucent/lytic appearance of the axial and proximal appendicular skeleton
-Pelvic ultrasound (06/07): Per radiology, 5.7 cm irregular, lobular solid soft tissue mass surrounded by ascites; no normal uterus or ovaries identified
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
-Bone scan: Per radiology, diffuse symmetric osseous uptake of activity
-Breast ultrasound, mammogram (06/11): Per radiology, 2 solid masses observed. One is a stable fibroadenoma and the other is a suspected dermal lesion with benign appearance.
-MRI abdomen (06/13): Per radiology, no obvious site of primary neoplasm in the abdomen. Scattered osseous lesions suspicious for metastases. Moderate abdominopelvic ascites.
CA125 elevated, SPEP normal, CEA normal, negative ascitic cytology
Right iliac bone biopsy: Pathology pending
S/P robot-assisted laparoscopy BSO, peritoneal omental biopsy. No complications noted.
Direct Marketing Coordinator-onc, heme-onc, breast surgery following
#Renal failure
Trend Cr: 5.3 on presentation, 3.1 today s/p bilateral PCN placement. Improving, though still markedly elevated.
Etiology of renal failure likely obstruction related to pelvic pathology
On presentation, patient reported bloating for the past 4 months, mildly distended abdomen
Patient reported she has not seen a physician in 20+ years
Imaging studies:
-Abdominal ultrasound (06/05): Per radiology, ascites, fatty liver, b/l renal collecting system dilatation, possible IVC thrombus.
-Bladder scan (06/05): Per radiology, pelvic ascites.
-IVC/iliac ultrasound: IVC and iliacs are patent
-CTAP 06/06: Per radiology, severe bilateral hydronephrosis without obstructing stone; 8.0 x 5.6 cm lobulated, minimally heterogenous lesion in the pelvis, possible malignancy; diffusely mixed lucent/lytic appearance of the axial and proximal
appendicular skeleton
Paracentesis performed 06/06. SAAG approximately 2.1
Per nephrology, no HD necessary for now
Bilateral nephrostomy tubes placed 06/07/2025 for treatment of hydronephrosis 2/2 suspected obstruction related to pelvic pathology
Slightly red-tinged urine draining from right nephrostomy tube drainage bag reported the day prior(improved from prior days), currently, patient is producing clear, yellow, minimal urine.
Nephrology, urology, IR, Direct Marketing Coordinator-onc, gynecology, heme-onc, breast surgery following
#Anemia
Hgb 8/0 today, stable s/p 1 unit PRBCs (06/05)
Patient currently asymptomatic
Suspected 2/2 renal failure or chronic disease
Heme test stools: Negative
Continue to monitor PCN drainage for signs of bleeding. Minimal red-tinged urine in right nephrostomy bag reported the day prior, currently clear, yellow color, improved relative to prior days.
EPO pending
Consider EPO stimulating agent if Hgb continues to decrease, pending EPO level
No signs of active bleeding
Trend CBC
Transfuse Hgb <7
#Hyperkalemia
K 4.4, stable
Continue low potassium diet
Monitor BMP
#Transaminitis
Mild elevations of LFTs, continue to monitor
LFTs not substantially changed from those on presentation
Abdominal ultrasound (06/05) as detailed above
#Moderate protein calorie malnutrition of chronic illness
BMI 17.5
DVT PPx: SC heparin
CODE STATUS: Full
Anticipated Discharge: > 48 hours
Anticipated Discharge: 24 - 48 hours
Subjective/Interval History
-
Date of Service: June 17, 2025
Patient has a dull ache in her right nephrostomy site, increased in intensity when she inhales deeply. She also reported an accompanying red tinge in her nephrostomy bag, but noted that it is now clear. Chronic lower abdominal pain reported. Clear
and frequent bowel noted due to Enema.
Objective Data
-
Labs:
Laboratory Results
06/17/25
06:38
WBC 6.1
Hgb 8.0 L
Hct 23.6 L
Plt Count 267 D
Sodium 136
Potassium 4.4
Chloride 106
Carbon Dioxide 22
BUN 49 H
Creatinine 3.1 H
Glucose 112 H
Calcium 9.0
Vital Signs:
Vital Signs
Temp Pulse Resp BP Pulse Ox
97.4 F 84 12 126/72 100
06/17/25 14:35 06/17/25 14:35 06/17/25 14:35 06/17/25 14:35 06/17/25 14:35
I&O
06/16/25 06/17/25 06/18/25
06:59 06:59 06:59
Intake Total 1140 / 1140 2280 / 2280
Output Total 4925 / 4925 3185 / 3185 150 / 150
Balance -3785 / -3785 -905 / -905 -150 / -150
Review of Systems
-
History Source: Patient
Constitutional: Reports Other (Denies fever, chills, weakness)
EENT: Reports No Symptoms Reported
Respiratory: Reports Other (Denies cough, wheezing, or trouble breathing)
Cardiac: Reports No Symptoms
Abdomen/GI: Reports Abdominal Pain (lower abdominal pain which noted to be chronic. ) and Other (No nausea and vomiting noted)
Genitourinary: Reports Other (Reports pain in the Right Nephrostomy site. Red tinged urine in her nephrostomy bag noted yesterday, which is now clear yellow in color. )
Musculoskeletal: Reports No Symptoms
Skin: Reports No Symptoms
Neuro: Reports No Symptoms
Physical Exam
-
General: Well Developed, Comfortable and Conversant
HEENT: Normocephalic, Atraumatic and Anicteric
Respiratory: Clear to Auscultation and Non Labored Respirations
Cardiac: Regular Rhythm and S1/S2
GI: Soft, Nondistended and Tender (chronic tenderness noted in the lower abdomen)
Rectal: Deferred by Provider
Genito-urinary: Clear Urine and Nephrostomy Tubes
Musculoskeletal: No Cyanosis and No Edema
Skin: Warm and Normal Turgor
Neuro: AO x 3, No Motor Deficits and No Sensory Deficits
Psych: Calm
--- NOTE | 2025-06-17 16:28 | PTCARENOTE ---
received pt from PACU today, 5 glued abdominal laproscopic sites, VSS stable, Q15m done in PACU, Q30m started on 3W
--- NOTE | 2025-06-17 17:14 | W.IMMPOSTOP ---
Surgical Immed Post Op Note
-
Date of Procedure: 06/17/2025
Primary Surgeon: Cesar Murrell
Assisting Surgeon: Stephanie Humphries RN
Pre-op Diagnosis: Ascites, Elevated CA 125
Post-op Diagnosis: Metastatic adenocarcinoma, with carcinomatosis
Procedure Performed: Robotic Assisted Laparoscopic, BSO, Peritoneal biopsies, Drainages of Ascites, Exam under anesthesia, D&C, PAP smear
Anesthesia Type: General, ET, TAP block
Specimen / Cultures: Right and left tube and ovary, Ascites, Right diaphragm Right and left pelvic peritoneum, EMC, PAP
Estimated Blood Loss: 25 cc
Complications: None
Operative Findings: Exploration of the abdomen reveals evidence of scattered implants of tumor across the entire intestinal tract, confluent deposits of tumor in the peritoneum involving right greater than left diaphragm, anterior and posterior
cul-de-sac, right and left pelvis and right and left paracolic gutters. She has a very small rind of omentum, there was no obvious masses involving the stomach right and left colon or transverse colon. Uterus has multiple leiomyoma but the serosa
is coated with implants of tumor, bilateral ovaries appear to be normal in size and appropriate for age but have implants on the ovary tube and periadnexal tissue. Frozen section of the right ovary reveals metastatic adenocarcinoma not primary most
likely from breast or gastric origin
--- NOTE | 2025-06-17 17:20 | OR.RPT ---
Operative Report
Operative Report
Date of Procedure: 06/17/2025
Primary Surgeon: Cesar Murrell
Assisting Surgeon: Stephanie Humphries RN
Pre-op Diagnosis: Ascites, Elevated CA 125
Post-op Diagnosis: Metastatic adenocarcinoma, with carcinomatosis
Procedure Performed: Robotic Assisted Laparoscopic, BSO, Peritoneal biopsies, Drainages of Ascites, Exam under anesthesia, D&C, PAP smear
Anesthesia Type: General, ET, TAP block
Specimen / Cultures: Right and left tube and ovary, Ascites, Right diaphragm Right and left pelvic peritoneum, EMC, PAP
Estimated Blood Loss: 25 cc
Complications: None
Indication for the surgery: This is a 54-year-old woman who has presented to [facility] with ascites, severe anemia with hemoglobin in the 6-7 range as well as renal failure with creatinine at 5. Ascites was drained and cytology was
negative for malignancy. Her CA125 was elevated, CEA was elevated patient has had a bone biopsy performed and there is adenocarcinoma present however primary site of tumor is undetermined as of today. The MRI of the abdomen and pelvis does not
suggest any significant abnormalities however given the overall presentation and suspicion for malignancy I am taken to the operating room in order to perform visual inspection of peritoneal surfaces omentum as well as gynecologic organs and biopsy
any abnormalities to assess and see whether the patient has any evidence of malignancy.
Operative Findings: Exploration of the abdomen reveals evidence of scattered implants of tumor across the entire intestinal tract, confluent deposits of tumor in the peritoneum involving right greater than left diaphragm, anterior and posterior
cul-de-sac, right and left pelvis and right and left paracolic gutters. She has a very small rind of omentum, there was no obvious masses involving the stomach right and left colon or transverse colon. Uterus has multiple leiomyoma but the serosa
is coated with implants of tumor, bilateral ovaries appear to be normal in size and appropriate for age but have implants on the ovary tube and periadnexal tissue. Frozen section of the right ovary reveals metastatic adenocarcinoma not primary most
likely from breast or gastric origin
Procedure in detail: This patient was taken to the operating room, placed in supine position, general anesthesia was administered she was carefully intubated, we took care to ensure that the nephrostomy tubes remained attached to her and properly
secured, both arms were protected with pads and laid along the patient sides after appropriate IVs were placed. Pads were placed around the shoulder and neck. She was placed in lithotomy position using yellowfin stirrups. The patient was prepped
and draped in the abdomen perineum and vagina. Manzo catheter was inserted for drainage of the bladder. Timeout procedure was carried out, she received antibiotics Ancef 2 g. Patient already had SCDs on bilateral lower extremities. I used Manuel
retractors to identify the cervix, cervix was grasped with single-tooth tenaculum on the anterior lip, Pap smear including broom brush as well as spatula was used and collected and sent to cytology. The cervical canal was dilated gradually there
was a lot of resistance in the lower uterine segment, it sounded to 7 cm, curettage of the endometrium was performed but minimal tissue was present. This was submitted on a Telfa to pathology. Uterine manipulator data conversion operator type with 2.5 SAI ring
was placed in the uterine cavity. I turned my attention to the abdomen Veress needle was inserted just below the left subcostal margin. Pneumoperitoneum was created with CO2 gas up to pressure of 15 mmHg. XI robotic port was placed in the left
upper quadrant and then under direct visualization 8 mm XI robotic ports were placed in the mid epigastric level, right and left lateral abdomen and a 12 mm air seal port was placed in the right lower quadrant. Tap block was performed with
ropivacaine distributed total of 60 cc right and left lateral upper abdomen 2 fingerbreadths below the subcostal margin under direct visualization as well as right and left mid abdomen. Following this we drained some of the ascites in the
perihepatic space and a sample was submitted to pathology. I used scissors and excised a portion of the peritoneum in the lateral aspect of right diaphragm and this was submitted to pathology. Patient was placed at 28 degree Trendelenburg. I went
ahead and docked the robotic system. There were large areas of peritoneal involvement and right and left pelvic peritoneum at the level of pelvic brim down to round ligament was completely excised and submitted as right and left pelvic peritoneum.
I opened the broad ligament which was covered with implants of tumor, I identified the course of the ureter bilaterally in an avascular space was used to open between ureters and IP ligaments. Both IP ligaments were sealed 3 times and divided each
tube and ovary and adjacent tissue was mobilized down to the level of the uterus and we sealed and divided the utero-ovarian ligament as well as attachments of the fallopian tube to the uterus. Right tube and ovary as well as left tube and ovary
were placed in 5 mm endoscopic bags and they were retrieved outside the abdomen. I submitted the right tube and ovary for frozen section. I examined the uterus and did not note any obvious abnormality except multiple leiomyoma and serosal deposits
of same carcinomatosis. I did not see any obvious primary malignancy in the colon or stomach. I attempted to visualize the appendix but I was unable to do so. At this point we removed all laps and instruments and drained any residual ascites.
The fascia at the right lower quadrant incision was closed initially with 0 Vicryl using a [employer] system but there was still a lateral opening and a [id number] suture of 0 Vicryl was used to close this. Additional 0 Vicryl suture was
placed on all 8 mm incision fascia and these were closed. 4-0 Monocryl was used in a subcuticular fashion to close the skin incisions. Uterine manipulator was removed. Manzo catheter was removed. Patient was placed back in supine position, she
was transferred to recovery room stable awake and extubated condition. Counts of laps instruments and needle was correct x 2. I was present and scrubbed for entire procedure as dictated above
[2025-06-18 03:00] VITALS: BP 106/63
[2025-06-18 06:00] VITALS: BMI 17.6
[2025-06-18 06:09] LABS: Hematocrit 22.0 % (37.0-47.0); Hemoglobin 7.6 g/dL (12.0-16.0); Mean Corp Hgb Conc. 34.5 g/dL (33.0-37.0); Mean Corpuscular Volume 84.6 fL (81.0-99.0); Platelet Count 261 10^3/uL (130-400); Red Cell Dist. Width 13.3 % (11.5-14.5)
[2025-06-18 06:52] LABS: Blood Urea Nitrogen 52 mg/dl (7-17); Calcium 8.9 mg/dl (8.4-10.2); Carbon Dioxide 21 mmol/L (22-30); Chloride 103 mmol/L (98-107); Estimated Creatinine Clearance 16 ml/min; Glucose 155 mg/dl (70-99); Potassium 4.7 mmol/L (3.5-5.1); Sodium 131 mmol/L (135-145); eGFR 19.22
[2025-06-18 07:00] VITALS: BP 108/73
[2025-06-18] MEDS: NORVASC PO (07:51)
[2025-06-18] MEDS: FLEET PHOSPHATE ENEMA-ADULT RECTAL ×2 (08:03→09:22)
[2025-06-18] MEDS: HEPARIN SC ×2 (08:03→20:45)
[2025-06-18] MEDS: DILAUDID 0.5 MG IV ×2 (08:03→15:23)
[2025-06-18] MEDS: MIRALAX 17 GRAMS PO ×2 (08:03→21:03)
[2025-06-18] MEDS: SODIUM BICARBONATE 325 MG PO ×3 (08:03→21:06)
[2025-06-18] MEDS: FLUSH (NSS) 1 FLUSH IV (08:05)
--- NOTE | 2025-06-18 08:12 | PTCARENOTE ---
Enema scheduled for 0800, MD inquired about order. informed this RN enema was for pre op preparation on 06/17, instructed this RN to hold dose and future doses.
--- NOTE | 2025-06-18 09:15 | W.PN.GYNONC ---
Today's Communication
-
post op recovery
convert PCN to PCNU in IR
Impression / Plan
-
# Malignancy
Status post laparoscopic peritoneal biopsies and BSO, frozen section on the right ovary suggests metastatic adenocarcinoma with consideration of primary breast cancer versus gastric. I shared the images from laparoscopy with the patient,
indicating widespread small volume peritoneal implants which is likely responsible for her GI symptoms as well as ureteral obstruction.
-Final pathology is pending
-Medical oncology team is already following patient and I anticipate further systemic treatment is necessary
-Breast surgery was notified, she may require breast MRI for further evaluation but no primary surgical effort is necessary at this time
# Secondary malignancy of bone
Nuclear medicine scan suggests multiple lesions widespread bone abnormalities
Bone biopsy done, path as per Dr. Finn suggest adenocarcinoma of breast origin, written report to be published today
# breast lesion assessed and considered benign by exam and mammogram, I suspect she needs an MRI
#Renal failure
Creatinine is 2.8
Patient is status post bilateral PCN, I discussed with the patient and Urology team possibility of conversion to PCN U while she is still in the hospital recognizing that they may still not function properly and may need to be open to drainage
#Anemia
plan is for transdusion below Hgb 7
probably due to renal failure
Cesar Murrell MD
Pharmacy Affairs Assistant Oncology
[phone]
Subjective / Interval History
-
Postop day 1 status post robotic assisted laparoscopic peritoneal biopsies, BSO, D&C
Patient has had pain and discomfort across the mid abdomen for laparoscopic ports are
She slept on and off, she reports voiding at least once
She has tolerated diet well
Objective Data
-
Lab Results:
06/18/25 05:56
06/18/25 05:56
Physical Exam
Vital Signs / I&O
Vitals
Temp Pulse Resp BP Pulse Ox
97.7 F 90 16 108/73 100
06/18/25 07:00 06/18/25 07:51 06/18/25 07:00 06/18/25 07:51 06/18/25 07:00
I&O
06/16/25 06/17/25 06/18/25 06/19/25
06:59 06:59 06:59 06:59
Intake Total 1140 / 1140 2280 / 2280 480 / 480
Output Total 4925 / 4925 3185 / 3185 575 / 575 1100 / 1100
Balance -3785 / -3785 -905 / -905 -575 / -575 -620 / -620
Physical Exam
General: No Apparent Distress
HEENT: Normocephalic and Moist Mucous Membranes
Respiratory: Clear and Non Labored Respirations
Cardiac: S1/S2 and Regular Rhythm
GI: Soft, Non Tender and Other (All 5 laparoscopic ports are intact with no erythema or drainage, appropriately tender in right lower quadrant)
Musculoskeletal: No Clubbing and No Edema
--- NOTE | 2025-06-18 10:48 | W.PN.ONC ---
Today's Communication / Plan
-
See updated main plan.
Impression
Impression
ascites, with high SAAG and negative cytology (reactive mesothelial cells). slow re-accumulation. consider repeat para prior to discharge if worsening symptoms.
Renal failure, acuity unknown, at least partially due to obstruction, with hydronephrosis, s/p perc nephrostomy tubes. Cr slowly downtrending.
anemia, no iron def, normal SPEP, UPEP; suspect related to CKD. can consider role for epo agonist outpt depending on anemia improvement with renal recovery.
benign appearing breast masses
uterine fibroids, no [employer] SALESPERSON or other obvious primary malignancy seen on MRI; CA125 elevation (could be from fibroids, peritoneal inflammation/stretching from ascites)
Diffusely abnormal bones on imaging (normal SPEP, UPEP makes myeloma unlikely). s/p bone lesion bx 06/13, path pending. if this is non-diagnostic will need ex-lap to further assess peritoneum.
will arrange close oncology follow up to review path and discuss next steps in managment.
Plan
Plan
Preliminary diagnosis is breast cancer from the laparoscopy. The bone biopsy is pending, but I would predict that we will be the same tissue.
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 This subtype is notorious for not being visible on breast imaging. It is also notorious for metastasizing to pelvic organs, and has also been described as metastasizing
to ureters. Bone metastases are also common.
I do not believe that we need to consider biopsy or other surgery on her breasts unless the final pathology returns with something unexpected. However, will await breast surgery consultation. It might be helpful to further visualize the ureters to
see if this is a discrete obstruction or whether the ureters appear to be lined with tumor cells. However, I suspect that her nephrostomies will be long-term.
Systemic therapy will depend on the final biopsy results, as well as further molecular testing. I filled her in on all of these possibilities.
Subjective/Objective
Subjective/Objective
She is having some discomfort from her laparoscopy sites, but is otherwise feeling well. Physical examination is unchanged.
Vital Signs:
Vital Signs
Temp Pulse Resp BP Pulse Ox
97.7 F 90 16 108/73 100
06/18/25 07:00 06/18/25 07:51 06/18/25 07:00 06/18/25 07:51 06/18/25 07:00
Lab Results:
Laboratory Data
WBC 7.6 10^3/uL (4.8-10.8) 06/18/25 05:56
Hgb 7.6 g/dL (12.0-16.0) L 06/18/25 05:56
Plt Count 261 10^3/uL (130-400) 06/18/25 05:56
PT 14.9 Sec (11.4-14.6) H 06/05/25 05:29
INR 1.14 06/05/25 05:29
eGFR 19.22 06/18/25 05:56
Orders
Orders
Orders From Last 24 Hours
06/18/25
CT Chest W/o Iv Contrast Routine
06/19/25 06:00
CA 27-29 [S] IN AM
[2025-06-18 11:00] VITALS: BP 119/74
--- NOTE | 2025-06-18 12:25 | CM ---
CM reviewed chart
Pt is POD#1 B/L salpingectomy and B/L oophrectomy and biopsy
Pt remains with B/L nephrostomy tubes
VM left for [facility] to follow up on CA keshia, awaiting call back
Discharge Disposition- home, follow for post op needs and tube management
[2025-06-18 15:08] VITALS: BP 127/72
[2025-06-18] MEDS: FLUSH (NSS) 2 FLUSH IV (15:24)
[2025-06-18] MEDS: TYLENOL 650 MG PO (17:05)
--- NOTE | 2025-06-18 18:13 | W.PN.HOSP.TC ---
Addendum entered and electronically signed by Abelardo Beltran MD 06/19/25 09:46:
AVERY versus progressive CKD, improved.
-Likely secondary to obstructive uropathy with bilateral hydro s/p PCNs
Did not require renal placement.
Nephrology is following
Metaolic acidosis
Resolved
Ascities, SAAG 2.2
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
Bilateral hydro
S/p PCN which are be converted to PCN-U
Pelvic lesions with lytic bone lesions favored to be suspicious for metastatic lesions
CEA normal, CA125 high
[employer] oncology s/p robotic assisted laparoscopy, BSO, omental biopsy 06/17
-Bx pending
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
S/p bone biopsy
Breast surgery, med-onc, medical economics consultant onc following
Markers are pending
Anemia, suspected secondary to chronic kidney disease s/p 1 unit PRBC
Transfuse if hemoglobin less than 7
SPEP negative for monoclonal protein
Hematology also following may consider EPO
Original Note:
Today's Communication/Plan
-
Follow-up pathology results of recent bone biopsy
Monitor kidney function s/p bilateral PCN placement
To change PCN to PCNU
Monitor H&H, transfusing as necessary
Continue to monitor clinical status
Assessment / Plan
Assessment / Plan
Patient is a 54-year-old female with no known past medical history who presented to the [facility] emergency department for evaluation of abnormal outpatient labs. The labs were completed after the patient attempted to establish care with
a PCP due to her fatigue, weight loss, abdominal bloating, early satiety, and solid stools since December of this year. [place] the [place] a few months ago after living in [facility] for 14 years. Patient's labs on presentation included
the following: Cr 5.3, BUN 79, K 6.2, AST 39, ALT 43, alk phos 161, and lipase 451.
# Metastatic adenocarcinoma
CA125 elevated, SPEP normal, CEA normal, negative ascitic cytology
Right iliac bone biopsy: Pathology pending
S/P robot-assisted laparoscopy BSO, peritoneal omental biopsy. No complications noted.
Breast Surgery consulted: Suggest to wait for pathology and markers before inpatient MRI is ordered. Patient is uninsured and it fernández be difficult to obtain one expeditiously.
Preliminary diagnosis is breast cancer per Oncology. Currently not considering breast biopsy or surgery.
Suggest for further studies on ureter for evaluation of obstruction cause and metastases.
Supervisor [employer]-onc, heme-onc, breast surgery following
Past Pertinent Imaging Studies:
Diffusely mixed lucent/lytic bone lesions
Patient presented with bloating for 4 months associated with weight loss, early satiety, and fatigue
No evidence for malignancy at this point based on the workup detailed below
Imaging studies:
-CTAP 06/06: 8.0 x 5.6 cm lobulated, minimally heterogenous lesion in the pelvis, possible malignancy; diffusely mixed lucent/lytic appearance of the axial and proximal appendicular skeleton
-Pelvic ultrasound (06/07): Per radiology, 5.7 cm irregular, lobular solid soft tissue mass surrounded by ascites; no normal uterus or ovaries identified
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
-Bone scan: Per radiology, diffuse symmetric osseous uptake of activity
-Breast ultrasound, mammogram (06/11): Per radiology, 2 solid masses observed. One is a stable fibroadenoma and the other is a suspected dermal lesion with benign appearance.
-MRI abdomen (06/13): Per radiology, no obvious site of primary neoplasm in the abdomen. Scattered osseous lesions suspicious for metastases. Moderate abdominopelvic ascites.
#Renal failure
Trend Cr: 5.3 on presentation, 2.8 today s/p bilateral PCN placement. Improving, though still markedly elevated.
Patient no longer reports blood tinged urine and deep ache from PCN site.
PCN to be changed to PCNU
Etiology of renal failure likely related to metastatic pathology.
Nephrology, urology, IR, Supervisor [employer]-onc, gynecology, heme-onc, breast surgery following
Past pertinent studies:
Imaging studies:
-Abdominal ultrasound (06/05): Per radiology, ascites, fatty liver, b/l renal collecting system dilatation, possible IVC thrombus.
-Bladder scan (06/05): Per radiology, pelvic ascites.
-IVC/iliac ultrasound: IVC and iliacs are patent
-CTAP 06/06: Per radiology, severe bilateral hydronephrosis without obstructing stone; 8.0 x 5.6 cm lobulated, minimally heterogenous lesion in the pelvis, possible malignancy; diffusely mixed lucent/lytic appearance of the axial and proximal
appendicular skeleton
Paracentesis performed 06/06. SAAG approximately 2.2
Bilateral nephrostomy tubes placed 06/07/2025 for treatment of hydronephrosis 2/2 suspected obstruction related to pelvic pathology
#Anemia
Hgb 7.6 today, continue to monitor
Patient currently asymptomatic
Suspected 2/2 renal failure or chronic disease
Heme test stools: Negative
Continue to monitor PCN drainage for signs of bleeding. Urine currently clear.
EPO pending per nephrology
Consider EPO stimulating agent if Hgb continues to decrease, pending EPO level
No signs of active bleeding
Trend CBC
Transfuse Hgb <7
#Hyperkalemia
K 4.7 stable
Continue low potassium diet
Monitor BMP
#Transaminitis
Mild elevations of LFTs, continue to monitor
LFTs not substantially changed from those on presentation
Abdominal ultrasound (06/05) as detailed above
#Moderate protein calorie malnutrition of chronic illness
BMI 17.6
DVT PPx: SC heparin
CODE STATUS: Full
Anticipated Discharge: > 48 hours
Anticipated Discharge: 24 - 48 hours
Subjective/Interval History
-
Date of Service: June 18, 2025
Reports minimal vaginal bleeding post surgery. Abdominal pain with pain score of 8/10, but patient opting to minimize use of opioid as much as possible.
She reports spontaneous urine output. Deep ache and red tinged urine from right PCN no longer reported.
Objective Data
-
Labs:
Laboratory Results
06/18/25
05:56
Sodium 131 L
Potassium 4.7
Chloride 103
Carbon Dioxide 21 L
BUN 52 H
Creatinine 2.8 H
Glucose 155 H
Calcium 8.9
Vital Signs:
Vital Signs
Temp Pulse Resp BP Pulse Ox
98.3 F 95 16 127/72 99
06/18/25 15:08 06/18/25 15:08 06/18/25 15:08 06/18/25 15:08 06/18/25 15:08
I&O
06/17/25 06/18/25 06/19/25
06:59 06:59 06:59
Intake Total 2280 / 2280 1500 / 1500
Output Total 3185 / 3185 575 / 575 2650 / 2650
Balance -905 / -905 -575 / -575 -1150 / -1150
Review of Systems
-
History Source: Patient
Constitutional: Reports Other (Denies fever, weakness)
EENT: Reports No Symptoms Reported
Respiratory: Reports No Symptoms
Cardiac: Reports No Symptoms
Abdomen/GI: Reports Abdominal Pain (surgical incision site)
Genitourinary: Reports Vaginal Bleeding (minimal, post surgery. On PCN)
Musculoskeletal: Reports Other (Denies edema )
Neuro: Reports No Symptoms
Endocrine: Reports No Symptoms
Hematologic / Lymphatic: Reports Other (Denies bleeding)
Physical Exam
-
General: No Apparent Distress and Conversant
HEENT: Normocephalic and Atraumatic
Respiratory: Clear to Auscultation and Non Labored Respirations
Cardiac: Regular Rhythm and S1/S2
GI: Soft, Tender and Other (hypoactive)
Rectal: Deferred by Provider
Genito-urinary: Clear Urine and Other (PCN)
[2025-06-18 23:05] VITALS: BP 98/63
[2025-06-18 23:55] VITALS: BP 107/69
[2025-06-19] VITALS (8 sets, daily range): BP systolic 79–121; BP diastolic 60–74; BMI 17.4
[2025-06-19] MEDS: TYLENOL 650 MG PO ×3 (04:41→13:41)
[2025-06-19] MEDS: FLEET PHOSPHATE ENEMA-ADULT RECTAL (09:06)
[2025-06-19] MEDS: NORVASC PO (09:06)
[2025-06-19] MEDS: HEPARIN SC ×2 (09:06→20:59)
[2025-06-19] MEDS: SODIUM BICARBONATE 325 MG PO ×3 (09:16→21:06)
[2025-06-19] MEDS: MIRALAX 17 GRAMS PO (09:16)
[2025-06-19 09:58] LABS: Hematocrit 21.4 % (37.0-47.0); Hemoglobin 7.4 g/dL (12.0-16.0); Mean Corp Hgb Conc. 34.6 g/dL (33.0-37.0); Mean Corpuscular Volume 85.9 fL (81.0-99.0); Platelet Count 254 10^3/uL (130-400); Red Cell Dist. Width 13.7 % (11.5-14.5)
[2025-06-19 10:31] LABS: Blood Urea Nitrogen 57 mg/dl (7-17); Calcium 8.2 mg/dl (8.4-10.2); Carbon Dioxide 22 mmol/L (22-30); Chloride 104 mmol/L (98-107); Estimated Creatinine Clearance 17 ml/min; Glucose 116 mg/dl (70-99); Potassium 3.6 mmol/L (3.5-5.1); Sodium 133 mmol/L (135-145); eGFR 20.08
--- NOTE | 2025-06-19 12:36 | W.PN.URO.CBU ---
Today's Communication / Plan
-
marco a and have iad convert pcn to nephroureteral stents
Assessment / Plan
-
54F with severe bilateral hydronephrosis, pelvic mass, ascites, weight loss, acute vs chronic renal failure
s/p b/l percutaneous nephrostomy placement 06/07/25
Bilateral ureteral obstruction of unclear nature - would suspect large pelvic mass as the cause but ureters are not grossly dilated. Bilateral UPJ obstruction from benign retroperitoneal fibrosis or metastatic malignancy is anternative possibility
Will require additional evaluation/management, likely to be done on outpatient basis but dependent on additional findings of inpatient workup
Needs further workup of pelvic mass and bone lesions to rule out malignancy
Bladder US shows normal bladder wall without intramural mass, normal UA - very low suspicion for primary urologic malignancy
No urinary retention on renal US
Removey removed and voided without difficulty prior to PCNs
She may or may not void at all now post nephrostomy placement
Diagnosis
-
Date of Service: June 19, 2025
-
Patient Diagnosis:
Post Op Day:
Patient Diagnosis:
Post Op Day:
Patient Diagnosis:
Post Op Day:
Patient Diagnosis:
bilateral hydronephrosis
elevated creatinine
pelvic mass
ascites
Post Op Day:
Subjective
-
abd pain but improving
Objective
-
Vital Signs
Temp Pulse Resp BP Pulse Ox
97.8 F 86 16 102/67 100
06/19/25 07:00 06/19/25 09:06 06/19/25 07:00 06/19/25 09:06 06/19/25 07:00
Intake and Output
06/18/25 06/19/25 06/20/25
06:59 06:59 06:59
Intake Total 1500 / 1500 480 / 480
Output Total 575 / 575 2650 / 2650 1275 / 1275
Balance -575 / -575 -1150 / -1150 -795 / -795
Intake:
Oral fluids 1500 / 1500 480 / 480
Output:
Urinary Drain Output (Total) 575 / 575 2650 / 2650 1275 / 1275
Left Nephrostomy 450 / 450 2100 / 2100 1100 / 1100
Right Nephrostomy 125 / 125 550 / 550 175 / 175
Other:
Number of approximated MODERATE 1
amounts of urine
Laboratory Results
06/19/25 09:50
06/19/25 09:50
Review of Systems
-
: Flank Pain
Physical Exam
-
General - well developed, well nourished, no acute distress
Chest - clear bilaterally
Abdomen - soft, non-tender, positive bowel sounds, no CVAT, no incisional pain or distention
Genitalia - normal
Rectal - normal
Skin - warm & dry with no rash
Neuro - AOx3, no motor deficits
Extremities - no clubbing, no cyanosis, no edema
Incision - clean, dry
Dressing - clean, dry, intact
Care Review
Data Reviewed
Discussed with: Nursing and IRAD
CT Scan: Image Pers Reviewed
--- NOTE | 2025-06-19 13:31 | CM ---
Call placed to [facility] for update regarding medical assistance. [facility] is awaiting [employer] bank statements (which should be available in the next day or two) to submit the final application for [place] approval.
--- NOTE | 2025-06-19 14:41 | W.PN.HOSP.TC ---
Addendum entered and electronically signed by Abelardo Beltran MD 06/20/25 14:06:
AVERY versus progressive CKD, improved.
-Likely secondary to obstructive uropathy with bilateral hydro s/p PCNs
--IR consult for PCN internalizations
Did not require renal placement.
Nephrology is following
Metaolic acidosis
Resolved
Ascities, SAAG 2.2
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
Bilateral hydro
S/p PCN which are be converted to PCN-U
--IR consult for PCN internalizations
Pelvic lesions with lytic bone lesions favored to be suspicious for metastatic lesions
CEA normal, CA125 high
[employer]ANCE [employer]ESSION[employer] oncology s/p robotic assisted laparoscopy, BSO, omental biopsy 06/17
-Bx pending
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
S/p bone biopsy
Breast surgery, med-onc, glass science engineer onc following
Markers are pending
Anemia, suspected secondary to chronic kidney disease s/p 1 unit PRBC
Transfuse if hemoglobin less than 7
SPEP negative for monoclonal protein
Hematology also following may consider EPO
Original Note:
Today's Communication/Plan
-
Coordinate with Gyne-onco services for MRI
Follow-up pathology results of recent bone biopsy
Monitor kidney function s/p bilateral PCN placement
To change PCN to PCNU
Monitor H&H, transfusing as necessary
Continue to monitor clinical status
Assessment / Plan
Assessment / Plan
Patient is a 54-year-old female with no known past medical history who presented to the [facility] emergency department for evaluation of abnormal outpatient labs. The labs were completed after the patient attempted to establish care with
a PCP due to her fatigue, weight loss, abdominal bloating, early satiety, and solid stools since December of this year. [place] the [place] a [place] ago after living in [facility] for 14 years. Patient's labs on presentation included
the following: Cr 5.3, BUN 79, K 6.2, AST 39, ALT 43, alk phos 161, and lipase 451.
# Metastatic adenocarcinoma
CA125 419 elevated, SPEP normal, CEA 8.46 elevated, negative ascitic cytology
Right iliac bone biopsy:
Estrogen Receptor Positive (30% of cells with nuclear positivity),
Progesterone Receptor Positive (70% of cells with nuclear positivity)
HER2 Negative (Score: 0)
Ki-67 Proliferation Index 2%
Peritoneal omental biopsy, Peritoneal fluid, and Cervical Pathology pending
CA 27-29 Pending
S/P robot-assisted laparoscopy BSO, peritoneal omental biopsy (06/17/2025). No complications noted.
Breast Surgery consulted: plan is Bilateral Breast MRI with and without contrast, pending radiology consults with regards to contrast.
Chest CT w/o contrast (06/18/2025)
Negative for pulmonary mass or suspicious pulmonary nodules. No mediastinal adenopathy identified. There are bilateral mildly enlarged axillary lymph nodes as above [place] dependent atelectasis and trace bilateral pleural effusions. Diffuse
osseous metastatic disease. Small volume pneumoperitoneum related to surgery of one day prior.
Suggest for further studies on ureter for evaluation of obstruction cause and metastases.
Front Desk Associate-onc, heme-onc, breast surgery following
#Renal failure
Trend Cr: 5.3 on presentation, 2.7 today s/p bilateral PCN placement. BUN is 57 H. Improving, though still markedly elevated.
eGFR: 17
Patient able to spontaneously pass urine
Etiology of renal failure likely related to metastatic pathology.
PCN to be changed to PCNU
Nephrology, urology, IR, Front Desk Associate-onc, gynecology, heme-onc, breast surgery following
#Hypocalcemia
- 8.2 Low today, continue to monitor
Past pertinent studies:
Imaging studies:
-Abdominal ultrasound (06/05): Per radiology, ascites, fatty liver, b/l renal collecting system dilatation, possible IVC thrombus.
-Bladder scan (06/05): Per radiology, pelvic ascites.
-IVC/iliac ultrasound: IVC and iliacs are patent
-CTAP 06/06: Per radiology, severe bilateral hydronephrosis without obstructing stone; 8.0 x 5.6 cm lobulated, minimally heterogenous lesion in the pelvis, possible malignancy; diffusely mixed lucent/lytic appearance of the axial and proximal
appendicular skeleton
Paracentesis performed 06/06. SAAG approximately 2.2
Bilateral nephrostomy tubes placed 06/07/2025 for treatment of hydronephrosis 2/2 suspected obstruction related to pelvic pathology
#Anemia
Hgb 7.4 today, continue to monitor
Patient currently asymptomatic
Suspected 2/2 renal failure or chronic disease
Continue to monitor PCN drainage for signs of bleeding. Urine currently clear.
EPO pending per nephrology
Consider EPO stimulating agent if Hgb continues to decrease, pending EPO level
No signs of active bleeding
Trend CBC
Transfuse Hgb <7
#Hyperkalemia
K 3.6, stable
Monitor BMP
#Moderate protein calorie malnutrition of chronic illness
BMI 17.4
DVT PPx: SC heparin
CODE STATUS: Full
Anticipated Discharge: > 48 hours
Anticipated Discharge: 24 - 48 hours
Subjective/Interval History
-
Date of Service: June 19, 2025
Patient still reports pain and tenderness in her abdomen. Bloating and two episodes of loose bowel movement reported.
Objective Data
-
Labs:
Laboratory Results
06/19/25
09:50
WBC 5.8
Hgb 7.4 L
Hct 21.4 L
Plt Count 254
Sodium 133 L
Potassium 3.6
Chloride 104
Carbon Dioxide 22
BUN 57 H
Creatinine 2.7 H
Glucose 116 H
Calcium 8.2 L
Vital Signs:
Vital Signs
Temp Pulse Resp BP Pulse Ox
97.8 F 86 16 102/67 100
06/19/25 07:00 06/19/25 09:06 06/19/25 07:00 06/19/25 09:06 06/19/25 07:00
I&O
06/18/25 06/19/25 06/20/25
06:59 06:59 06:59
Intake Total 1500 / 1500 480 / 480
Output Total 575 / 575 2650 / 2650 1275 / 1275
Balance -575 / -575 -1150 / -1150 -795 / -795
Review of Systems
-
History Source: Patient
Constitutional: Reports Other (Denies fever, weakness)
EENT: Reports No Symptoms Reported
Respiratory: Reports No Symptoms
Cardiac: Reports No Symptoms
Abdomen/GI: Reports Abdominal Pain (surgical incision site)
Genitourinary: Reports Other (spontaneous urine output on PCN)
Musculoskeletal: Reports Other (Denies edema )
Neuro: Reports No Symptoms
Endocrine: Reports No Symptoms
Hematologic / Lymphatic: Reports Other (Denies bleeding)
Physical Exam
-
General: No Apparent Distress, Comfortable and Conversant
HEENT: Normocephalic and Atraumatic
Respiratory: Clear to Auscultation and Non Labored Respirations
Cardiac: Regular Rhythm and S1/S2
GI: Soft, Tender and Other (hyperactive)
Rectal: Deferred by Provider
Genito-urinary: Clear Urine and Other (PCN)
Musculoskeletal: No Edema and Other (on compression therapy)
Skin: Warm
Neuro: AO x 3, No Motor Deficits and No Sensory Deficits
Psych: Calm
--- NOTE | 2025-06-19 16:46 | PTCARENOTE ---
GERRI RN- reviewed care of tubes for home with patient. drainage tube discharge sheet sent to floor with paper chart.
--- NOTE | 2025-06-19 16:52 | PTCARENOTE ---
Pt arrived back from IR procedure by stretcher. Pt ambulated to room independently. Pt complained of mild pain in abdomen. Right nephrostomy tube noted to have pink/red drainage. IR informed this RN that blood may be visible in urine due to
attempted wire placement during procedure into right ureter. Pt requested diet order, TT .
[2025-06-19] MEDS: MIRALAX PO (20:59)
[2025-06-19] MEDS: DILAUDID 0.5 MG IV (21:05)
[2025-06-20] MEDS: TYLENOL 650 MG PO ×4 (02:26→21:30)
[2025-06-20 06:00] VITALS: BMI 17.5
[2025-06-20 07:00] VITALS: BP 101/63
[2025-06-20 07:37] LABS: Hematocrit 25.4 % (37.0-47.0); Hemoglobin 8.4 g/dL (12.0-16.0); Mean Corp Hgb Conc. 33.1 g/dL (33.0-37.0); Mean Corpuscular Volume 87.0 fL (81.0-99.0); Platelet Count 370 10^3/uL (130-400); Red Cell Dist. Width 13.7 % (11.5-14.5)
[2025-06-20] MEDS: NORVASC PO (08:12)
[2025-06-20] MEDS: HEPARIN SC ×2 (08:12→21:22)
[2025-06-20] MEDS: FLEET PHOSPHATE ENEMA-ADULT RECTAL (08:12)
[2025-06-20 08:14] LABS: Blood Urea Nitrogen 57 mg/dl (7-17); Calcium 8.9 mg/dl (8.4-10.2); Carbon Dioxide 22 mmol/L (22-30); Chloride 102 mmol/L (98-107); Estimated Creatinine Clearance 17 ml/min; Glucose 113 mg/dl (70-99); Potassium 3.9 mmol/L (3.5-5.1); Sodium 133 mmol/L (135-145); eGFR 20.08
[2025-06-20] MEDS: MIRALAX 17 GRAMS PO ×2 (08:15→21:29)
[2025-06-20] MEDS: SODIUM BICARBONATE 325 MG PO ×3 (08:19→21:29)
--- NOTE | 2025-06-20 09:25 | W.PN.GYNONC ---
Today's Communication
-
discharge planning
Impression / Plan
-
# Malignancy
Status post laparoscopic peritoneal biopsies and BSO, frozen section on the right ovary suggests metastatic adenocarcinoma with consideration of primary breast cancer versus gastric.
finall path on bone biopsy is metastatic mammary carcinoma
we anticipate treatment recommendations forth coming from medical oncology
# Secondary malignancy of bone
Nuclear medicine scan suggests multiple lesions widespread bone abnormalities
Bone biopsy done, path as per Dr. Finn suggest adenocarcinoma of breast origin,
# breast lesion assessed and considered benign by exam and mammogram, I suspect she needs an MRI. I dont anticipate any breast surgery to be beneficial for now
#Renal failure
Creatinine is 2.7
attempt was made to convert bilateral PCN to PCNU, but was unsuccessful
She will continue to have bilateral PCN
#Anemia
plan is for transdusion below Hgb 7
Hgb is 8
#Insurance Status
applied for medicaid as well as for affordable care act product
Cesar Murrell MD
[facility]
[phone]
Subjective / Interval History
-
she c/o pain related to procedure yesterday
not voiding much and mostly blood tinged
she is passing flatus, has also some new swelling in lateral lower abdomen
Objective Data
-
Lab Results:
06/20/25 06:23
06/20/25 06:23
Physical Exam
Vital Signs / I&O
Vitals
Temp Pulse Resp BP Pulse Ox
98.3 F 96 16 101/63 97
06/20/25 07:00 06/20/25 07:00 06/20/25 07:00 06/20/25 07:00 06/20/25 07:30
I&O
06/18/25 06/19/25 06/20/25 06/21/25
06:59 06:59 06:59 06:59
Intake Total 1500 / 1500 1200 / 1200
Output Total 575 / 575 2650 / 2650 3200 / 3200
Balance -575 / -575 -1150 / -1150 -1999 /
Physical Exam
General: No Apparent Distress
Respiratory: Clear and Non Labored Respirations
Cardiac: S1/S2 and Regular Rhythm
GI: Soft, Non Tender and Other (incisions slightly tender, no erythema)
--- NOTE | 2025-06-20 10:56 | W.PN.HOSP.TC ---
Addendum entered and electronically signed by Abelardo Beltran MD 06/20/25 14:14:
AVERY versus progressive CKD, improved.
-Likely secondary to obstructive uropathy with bilateral hydro s/p PCNs
----Unable to pass catheters for PCN-U therefore, procedure aborted
Did not require renal placement.
Nephrology is following
Metaolic acidosis
Resolved
Ascities, SAAG 2.2
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
Bilateral hydro
S/p PCN which are be converted to PCN-U
--Unable to pass catheters for PCN-U therefore, procedure aborted
Noted pelvic fullness without significant amount of pain
--Therefore, CTAP with Oral Cont, unable to use IV due to renal function
----Showing free peritoneal air, per SPA DIRECTOR-Onc via TT likely related to ex lap procedure
----Discussed cases with IR, conservative amanagement for now, likely gas/air related to ex lap, if detoriates then consider MR or CT oral con.
Pelvic lesions with lytic bone lesions favored to be suspicious for metastatic lesions
CEA normal, CA125 high
SPA DIRECTOR oncology s/p robotic assisted laparoscopy, BSO, omental biopsy 06/17
-Bx pending
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
S/p bone biopsy
Breast surgery, med-onc, infant teacher onc following
Markers are pending
MRI Breast pending
Anemia, suspected secondary to chronic kidney disease s/p 1 unit PRBC
Transfuse if hemoglobin less than 7
SPEP negative for monoclonal protein
Hematology also following may consider EPO
Original Note:
Today's Communication/Plan
-
Ordered MR Bilateral Breast w/ and w/o contrast.
Ordered CT abdomen/pelvis w/o contrast
Follow-up pathology results of recent bone biopsy
Monitor kidney function s/p bilateral PCN placement
Monitor H&H, transfusing as necessary
Continue to monitor clinical status
Assessment / Plan
Assessment / Plan
Patient is a 54-year-old female with no known past medical history who presented to the [facility] emergency department for evaluation of abnormal outpatient labs. The labs were completed after the patient attempted to establish care with
a PCP due to her fatigue, weight loss, abdominal bloating, early satiety, and solid stools since December of this year. [place] to the [place] a few months ago after living in [place] for 14 years. Patient's labs on presentation included
the following: Cr 5.3, BUN 79, K 6.2, AST 39, ALT 43, alk phos 161, and lipase 451.
# Metastatic adenocarcinoma
CA125 419 elevated, SPEP normal, CEA 8.46 elevated, negative ascitic cytology
Right iliac bone biopsy:
Estrogen Receptor Positive (30% of cells with nuclear positivity),
Progesterone Receptor Positive (70% of cells with nuclear positivity)
HER2 Negative (Score: 0)
Ki-67 Proliferation Index 2%
Peritoneal omental biopsy, Peritoneal fluid, and Cervical Pathology pending
CA 27-29 Pending
S/P robot-assisted laparoscopy BSO, peritoneal omental biopsy (06/17/2025). No complications noted.
Breast Surgery consulted: Bilateral Breast MRI with and without contrast pending. (per radiology consult: Group II MR IV contrast agent has very low, if any risk of NSF. Breast MR with contrast can be done if deemed necessary for clinical
management)
Chest CT w/o contrast (06/18/2025)
Negative for pulmonary mass or suspicious pulmonary nodules. No mediastinal adenopathy identified. There are bilateral mildly enlarged axillary lymph nodes as above [place] dependent atelectasis and trace bilateral pleural effusions. Diffuse
osseous metastatic disease. Small volume pneumoperitoneum related to surgery of one day prior.
Suggest for further studies on ureter for evaluation of obstruction cause and metastases.
Open Claims Representative-onc, heme-onc, breast surgery following
#Renal failure
Trend Cr: 5.3 on presentation, 2.7 today s/p bilateral PCN placement. BUN is 57 H. Improving, though still markedly elevated.
eGFR: 17
Patient notes today that she has lower abdominal fullness and tenderness at her right PCN site after unsuccessful attempt for PCNU procedure.Minimal, red, blood tinged urine also noted.
CT Abdominal/Pelvis w/o IV contast results pending
PCN unable to be changed to PCNU due to obstruction likely secondary to metastatic processes.
Etiology of renal failure likely related to metastatic pathology.
Nephrology, urology, IR, Open Claims Representative-onc, gynecology, heme-onc, breast surgery following
Past pertinent studies:
Imaging studies:
-Abdominal ultrasound (06/05): Per radiology, ascites, fatty liver, b/l renal collecting system dilatation, possible IVC thrombus.
-Bladder scan (06/05): Per radiology, pelvic ascites.
-IVC/iliac ultrasound: IVC and iliacs are patent
-CTAP 06/06: Per radiology, severe bilateral hydronephrosis without obstructing stone; 8.0 x 5.6 cm lobulated, minimally heterogenous lesion in the pelvis, possible malignancy; diffusely mixed lucent/lytic appearance of the axial and proximal
appendicular skeleton
Paracentesis performed 06/06. SAAG approximately 2.2
Bilateral nephrostomy tubes placed 06/07/2025 for treatment of hydronephrosis 2/2 suspected obstruction related to pelvic pathology
#Hypocalcemia
- 8.9 normal today, continue to monitor
#Anemia
Hgb 8.4 today, continue to monitor
Patient currently asymptomatic
Suspected 2/2 renal failure or chronic disease
Continue to monitor PCN drainage for signs of bleeding. Urine currently clear.
EPO pending per nephrology
Consider EPO stimulating agent if Hgb continues to decrease, pending EPO level
No signs of active bleeding
Trend CBC
Transfuse Hgb <7
#Hyperkalemia
K 3.9, stable
Monitor BMP
#Moderate protein calorie malnutrition of chronic illness
BMI 17.4
DVT PPx: SC heparin
CODE STATUS: Full
Anticipated Discharge: > 48 hours
Anticipated Discharge: 24 - 48 hours
Subjective/Interval History
-
Date of Service: June 20, 2025
Patient noted pain at the right nephrostomy site accompanied by bright,red, minimal urinary discharge. Abdominal fullness in lower abdomen also noted.
Objective Data
-
Labs:
Laboratory Results
06/20/25
06:23
WBC 7.4
Hgb 8.4 L
Hct 25.4 L
Plt Count 370 D
Sodium 133 L
Potassium 3.9
Chloride 102
Carbon Dioxide 22
BUN 57 H
Creatinine 2.7 H
Glucose 113 H
Calcium 8.9
Vital Signs:
Vital Signs
Temp Pulse Resp BP Pulse Ox
98.3 F 96 16 101/63 97
06/20/25 07:00 06/20/25 07:00 06/20/25 07:00 06/20/25 07:00 06/20/25 07:30
I&O
06/19/25 06/20/25 06/21/25
06:59 06:59 06:59
Intake Total 1500 / 1500 1200 / 1200
Output Total 2650 / 2650 3200 / 3200
Balance -1150 / -1150 -1999 / -1999
Review of Systems
-
History Source: Patient
Constitutional: Reports Other (Denies fever, weakness)
EENT: Reports No Symptoms Reported
Respiratory: Reports No Symptoms
Cardiac: Reports No Symptoms
Abdomen/GI: Reports Abdominal Pain (surgical incision site) and Other (lower abdominal fullness)
Genitourinary: Reports Other ((+) minimal, bloody, urinary discharge. )
Musculoskeletal: Reports Other (Denies edema )
Neuro: Reports Other (No dizziness, headaches, numbness, ataxia)
Endocrine: Reports No Symptoms
Physical Exam
-
General: No Apparent Distress, Comfortable and Conversant
HEENT: Normocephalic, Atraumatic and Good Dentition
Respiratory: Clear to Auscultation and Non Labored Respirations
Cardiac: Regular Rhythm and S1/S2
GI: Soft, Tender and Other (normoactive bowel sounds, lower abdominal fullness)
Rectal: Deferred by Provider
Genito-urinary: Bloody Urine and Other (PCN)
Musculoskeletal: No Edema
Skin: Warm
Neuro: AO x 3, No Motor Deficits and No Sensory Deficits
Psych: Calm
--- NOTE | 2025-06-20 11:24 | W.PN.ONC2 ---
Documented by User: WICHO Madden 06/20/25 11:35
Today's Communication / Plan
-
OP follow up will be arranged upon discharge
Impression
Impression
IV breast cancer ER/[place] positive, Her2 negative via bone biopsy 06/13 and frozen section on the right ovary reviewed with patient by Dr. Price at bedside
ascites, with high SAAG and negative cytology (reactive mesothelial cells)
renal insufficiency, chronicity unknown, creatinine improved from 5.3->2.7, component of obstructive uropathy, s/p perc nephrostomy tubes.
anemia, no iron def, normal SPEP, UPEP; suspect related to AOCD, renal insufficiency, malignancy
uterine fibroids, CA125 elevationcould be from fibroids, peritoneal inflammation/stretching from ascites
Plan
Plan
Breast MRI and CT ab/pelvis pending. If sxs ascites, could consider repeat para prior to d/c
Reviewed general antineoplastic therapy with ER/[place] positive, Her2 negative stage IV breast cancer
Subjective/Objective
Subjective
suprapubic fullness
pain with procedure yesterday
Vital Signs:
Vital Signs
Temp Pulse Resp BP Pulse Ox
98.3 F 96 16 101/63 97
06/20/25 07:00 06/20/25 07:00 06/20/25 07:00 06/20/25 07:00 06/20/25 07:30
Lab Results:
Laboratory Data
WBC 7.4 10^3/uL (4.8-10.8) 06/20/25 06:23
Hgb 8.4 g/dL (12.0-16.0) L 06/20/25 06:23
Plt Count 370 10^3/uL (130-400) D 06/20/25 06:23
PT 14.9 Sec (11.4-14.6) H 06/05/25 05:29
INR 1.14 06/05/25 05:29
eGFR 20.08 06/20/25 06:23
Physical Exam
HEENT: Moist Mucous Membranes; No Jaundice
Pulmonary: Other (unlabored)
GI: Soft and Other (neprhostomy tube with clear urine)
Extremities: Pulses Present; No Edema
Neuro: Non Focal

Documented by User: Eran Price MD 06/20/25 11:53
Plan
Plan
Breast MRI and CT ab/pelvis pending. If sxs ascites, could consider repeat para prior to d/c
Reviewed general antineoplastic therapy with ER/[place] positive, Her2 negative stage IV breast cancer
Oncology Addendum:
Patient seen and evaluated w/ [employer]ER [employer] - agree w/ note and plan as outlined
-bone biopsy c/w breast cancer - ER positive
-await final pathology from gynecologic specimens
-for breast MRI today and CT abd
-will arrange outpt f/u
-will continue to follow with you
[2025-06-20 15:00] VITALS: BP 120/71
--- NOTE | 2025-06-20 16:14 | W.PN.URO.CBU ---
Today's Communication / Plan
-
- Maintain percutaneous nephrostomy tubes
- Mild hematuria and pelvic discomfort after ureteral stent attempt is improving
- Subcutaneous/retroperitoneal air on CT 06/20 expected after laparoscopic surgery
- Outpatient follow up after discharge to arrange routine PCN exchanges and further eval based on response to cancer treatment
Assessment / Plan
-
54F with severe bilateral hydronephrosis, pelvic mass, ascites, weight loss, acute vs chronic renal failure
Found to have metastatic breast cancer
s/p b/l percutaneous nephrostomy placement 06/07/25
s/p failed attempt at conversion to nephroureteral stents 06/19 due to extent of malignant obstruction
- Maintain percutaneous nephrostomy tubes
- Mild hematuria and pelvic discomfort after ureteral stent attempt is improving
- Subcutaneous/retroperitoneal air on CT 06/20 expected after laparoscopic surgery
- Outpatient follow up after discharge to arrange routine PCN exchanges and further eval based on response to cancer treatment
Diagnosis
-
Date of Service: June 20, 2025
-
Patient Diagnosis:
bilateral hydronephrosis
malignant ureteral obstruction
AVERY
metastatic breast cancer
Post Op Day:
Subjective
-
some fullness of low pelvic/pubic skin
mild hematuria
improved crampy pelvic pain
Objective
-
Vital Signs
Temp Pulse Resp BP Pulse Ox
98.2 F 105 16 120/71 100
06/20/25 15:00 06/20/25 15:00 06/20/25 15:00 06/20/25 15:00 06/20/25 15:00
Intake and Output
06/19/25 06/20/25 06/21/25
06:59 06:59 06:59
Intake Total 1500 / 1500 1200 / 1200
Output Total 2650 / 2650 3200 / 3200
Balance -1150 / -1150 -1999 / -1999
Intake:
Oral fluids 1500 / 1500 1200 / 1200
Output:
Urinary Drain Output (Total) 2650 / 2650 3200 / 3200
Left Nephrostomy 2099 / 2100 2675 / 2675
Right Nephrostomy 550 / 550 525 / 525
Other:
Number of approximated MODERATE 1
amounts of urine
Number of unmeasured liquid
stools
Rectum 4
Laboratory Results
06/20/25 06:23
06/20/25 06:23
Physical Exam
-
General - well developed, well nourished, no acute distress
Chest - clear bilaterally
Abdomen - soft, non-tender, slight skin fullness at suprapubic region - nontender, no eythema
PCNs in place clear urine
[2025-06-20 23:00] VITALS: BP 101/56
[2025-06-21] MEDS: DILAUDID 0.5 MG IV ×3 (00:14→22:28)
--- NOTE | 2025-06-21 01:35 | W.PN.UPDATE ---
Update Note
Progress Note Update
RT nephrostomy dressing is damp and site with leaking. IR consult placed.
[2025-06-21 02:20] LABS: CA 27-29 926.3 U/mL (<=39.0)
[2025-06-21 06:00] VITALS: BMI 17.4
[2025-06-21 07:07] LABS: Hematocrit 22.3 % (37.0-47.0); Hemoglobin 7.5 g/dL (12.0-16.0); Mean Corp Hgb Conc. 33.6 g/dL (33.0-37.0); Mean Corpuscular Volume 86.8 fL (81.0-99.0); Platelet Count 262 10^3/uL (130-400); Red Cell Dist. Width 13.3 % (11.5-14.5)
[2025-06-21 07:21] LABS: Blood Urea Nitrogen 51 mg/dl (7-17); Calcium 8.5 mg/dl (8.4-10.2); Carbon Dioxide 23 mmol/L (22-30); Chloride 104 mmol/L (98-107); Estimated Creatinine Clearance 18 ml/min; Glucose 111 mg/dl (70-99); Potassium 3.7 mmol/L (3.5-5.1); Sodium 134 mmol/L (135-145); eGFR 21.01
--- NOTE | 2025-06-21 07:34 | PTCARENOTE ---
Patient reported Right PCN site dressing was wet. Nurse observed dressing to Right PCN site to be damped. patient had no c/o pain or discomfort to area, no active drainage observed from site. Site cleaned and dressing changed and dated and timed for
monitoring of new drainage. AGING ROOM OPERATOR made aware and IR consulted. Patient continues with swelling to pubic area c/o discomfort, plan of care continues.
[2025-06-21 07:45] VITALS: BP 111/67
[2025-06-21] MEDS: HEPARIN SC ×2 (08:52→20:48)
[2025-06-21] MEDS: FLEET PHOSPHATE ENEMA-ADULT RECTAL (08:52)
[2025-06-21] MEDS: NORVASC PO (08:53)
[2025-06-21] MEDS: SODIUM BICARBONATE 325 MG PO ×3 (08:53→22:20)
[2025-06-21] MEDS: MIRALAX 17 GRAMS PO ×2 (08:53→20:48)
[2025-06-21 12:42] VITALS: BP 126/70; BP_SYST 76
--- NOTE | 2025-06-21 13:06 | W.PN.UPDATE ---
Update Note
Progress Note Update
Seen and examined.
Continues to complain of lower pelvic abdominal fullness/swelling
Noted that right PCN was wet last night
NAD
Scleral Anicteric, wearing corrective lenses
Lower pelvic swelling
Bilateral PCNs with clear urine yellow urine
Soft, NT, ND, BS+
Warm, Dry
AAOx3
AVERY versus progressive CKD, improved.
-Likely secondary to obstructive uropathy with bilateral hydro s/p PCNs
----Unable to pass catheters for PCN-U therefore, procedure aborted
Did not require renal placement.
Nephrology is following
Metaolic acidosis
Resolved
Ascities, SAAG 2.2
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
Bilateral hydro
S/p PCN which are be converted to PCN-U
--Unable to pass catheters for PCN-U therefore, procedure aborted
Noted pelvic fullness without significant amount of pain
--Therefore, CTAP with Oral Cont, unable to use IV due to renal function
----Showing free peritoneal air, per JOURNEYMAN TOOL AND DIE MAKER-Onc via TT likely related to ex lap procedure
----Discussed cases with IR, conservative amanagement for now, likely gas/air related to ex lap, if detoriates then consider MR or CT oral con.
- IR will reposition
Pelvic lesions with lytic bone lesions favored to be suspicious for metastatic lesions
CEA normal, CA125 high
JOURNEYMAN TOOL AND DIE MAKER oncology s/p robotic assisted laparoscopy, BSO, omental biopsy 06/17
-Bx pending
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
S/p bone biopsy
Breast surgery, med-onc, home health manager onc following
MRI Breast completed, breast surgery following, awaiting as she may potentially require biopsy of breast lesion that was noted on MRI
Lower pelvic swelling reach out to [employer]OURNEY[employer]OL AND DIE MAKER oncology going to evaluate
Anemia, suspected secondary to chronic kidney disease s/p 1 unit PRBC
Transfuse if hemoglobin less than 7
SPEP negative for monoclonal protein
Hematology also following may consider EPO
[2025-06-21 13:12] VITALS: BP 112/76; BP_SYST 90
--- NOTE | 2025-06-21 14:33 | W.PN.UPDATE ---
Update Note
Progress Note Update
Events and results have been noted. With stage 4 breast disease, there would be no surgical treatment. Receptors have been obtained and will direct therapy. MRI reviewed with Dr. Lanier
and we do not believe the identified mass represents carcinoma; pt most likely has occult breast lesion. No need for breast biopsy.
[2025-06-21 15:08] VITALS: BP 111/67
--- NOTE | 2025-06-21 15:10 | W.PN.GYNONC ---
Addendum entered and electronically signed by Cesar Murrell MD 06/21/25 16:00:
Final pathology from procedure on Sunday 06/17 is now available
FINAL DIAGNOSIS
A. Right ovary and fallopian tube, robotic RSO �
-Metastatic carcinoma consistent with breast primary.
B. Endometrial curettings �- Unremarkable ectocervical squamous, endocervical and lower uterine segment
epithelium.
C. Right diaphragm biopsy �
-Metastatic carcinoma consistent with breast primary.
D. Left ovary and fallopian tube, robotic LSO �
-Metastatic carcinoma consistent with breast primary (see note).
E. Right pelvic peritoneum biopsy �
-Metastatic carcinoma consistent with breast primary.
F. Left pelvic peritoneum biopsy �
-Metastatic carcinoma consistent with breast primary.
Note: Immunostain analysis with adequate controls show the tumor to be GATA3 positive.
The immunoprofile including prognostic markers support the diagnosis.
Morphologically, the tumor has lobular breast carcinoma features.
Breast Prognostic Markers: Part D.
Estrogen Receptor Positive (100% of cells with nuclear positivity)
Progesterone Receptor Positive (70% of cells with nuclear positivity)
HER2 Negative (Score: 0)
Ki-67 Proliferation Index 20%
Original Note:
Today's Communication
-
-
Impression / Plan
-
# Malignancy
Status post laparoscopic peritoneal biopsies and BSO, frozen section on the right ovary suggests metastatic adenocarcinoma with consideration of primary breast cancer versus gastric.
finall path on bone biopsy is metastatic mammary carcinoma
we anticipate treatment recommendations forth coming from medical oncology
# Secondary malignancy of bone
Nuclear medicine scan suggests multiple lesions widespread bone abnormalities
Bone biopsy done, path as per Dr. Finn suggest adenocarcinoma of breast origin,
# breast lesion assessed and considered benign by exam and mammogram, I suspect she needs an MRI. I dont anticipate any breast surgery to be beneficial for now
#Renal failure
Creatinine is 2.7
attempt was made to convert bilateral PCN to PCNU, but was unsuccessful
She will continue to have bilateral PCN
#Anemia
plan is for transdusion below Hgb 7
Hgb is 8
#Insurance Status
applied for medicaid as well as for affordable care act product
Cesar Murrell MD
Director Of Golf Oncology
[phone]
06/21/2025
POD #4
case and exam discussed with Dr. Murrell
explained and reassurance given to patient that vaginal bleeding is normal for 5 to 7 days after d&c and laparoscopy
pelvic swelling and fullness is related to new ascites and may be related to collecting differently after BSO and healing from surgery
Subjective / Interval History
-
POD #4 She complains of feeling swelling in her lower pelvis and some pressure with sitting since yesterday after her PCN tubes were placed. Was to IR but no clear pocket of fluid was seen to be able to drain anything She was unsure if related to
Robotic Laparoscopy with BSO and biopsy She also is still having some vaginal bleeding very light but wants to know if this is normal
Objective Data
-
Lab Results:
06/21/25 06:33
06/21/25 06:33
Physical Exam
Vital Signs / I&O
Vitals
Temp Pulse Resp BP Pulse Ox
98.4 F 99 14 111/67 100
06/21/25 15:08 06/21/25 15:08 06/21/25 15:08 06/21/25 15:08 06/21/25 15:08
I&O
06/19/25 06/20/25 06/21/25 06/22/25
06:59 06:59 06:59 06:59
Intake Total 1500 / 1500 1200 / 1200 1020 / 1020
Output Total 2650 / 2650 3200 / 3200 3775 / 3775 750 / 750
Balance -1150 / -1150 -1999 / -1999 / -619 / -750
Physical Exam
Abdomen is soft ,slight diffuse tenderness but she also just finished eating area below pubic bone and upper mons pubis visual swollen no bruising , area is soft nontender and no fluid palpated port site clean and dry some bruising around right
lateral port
GI: Soft
Data Reviewed
-
CT Scan: Report Reviewed by Me and Discussed with Physician
Lab Data: Labs Reviewed
--- NOTE | 2025-06-21 15:17 | W.PN.HOSP.TC ---
Addendum entered and electronically signed by Abelardo Beltran MD 06/22/25 13:47:
please see update note
Original Note:
Today's Communication/Plan
-
Biopsy deferred
Continue to monitor PCN site
Follow-up pathology results of recent bone biopsy
Monitor kidney function s/p bilateral PCN placement
Monitor H&H, transfusing as necessary
Continue to monitor clinical status
Possible discharge tomorrow
Assessment / Plan
Assessment / Plan
Patient is a 54-year-old female with no known past medical history who presented to the [facility] emergency department for evaluation of abnormal outpatient labs. The labs were completed after the patient attempted to establish care with
a PCP due to her fatigue, weight loss, abdominal bloating, early satiety, and solid stools since December of this year. [place] the [place] a [place] months ago after living in [facility] for 14 years. Patient's labs on presentation included
the following: Cr 5.3, BUN 79, K 6.2, AST 39, ALT 43, alk phos 161, and lipase 451.
# Metastatic adenocarcinoma
CA125 419 elevated, SPEP normal, CEA 8.46 elevated, negative ascitic cytology
Right iliac bone biopsy:
Estrogen Receptor Positive (30% of cells with nuclear positivity),
Progesterone Receptor Positive (70% of cells with nuclear positivity)
HER2 Negative (Score: 0)
Ki-67 Proliferation Index 2%
Peritoneal omental biopsy:
A. Right ovary and fallopian tube, robotic RSO �
Metastatic carcinoma consistent with breast primary.
B. Endometrial curettings �
Unremarkable ectocervical squamous, endocervical and lower uterine segment
epithelium.
Right diaphragm biopsy �
Metastatic carcinoma consistent with breast primary.
D. Left ovary and fallopian tube, robotic LSO �
Metastatic carcinoma consistent with breast primary
E. Right pelvic peritoneum biopsy �
Metastatic carcinoma consistent with breast primary.
F. Left pelvic peritoneum biopsy �
Metastatic carcinoma consistent with breast primary.
CA 27-29- 926.3 H
Peritoneal fluid, and Cervical Pathology pending
S/P robot-assisted laparoscopy BSO, peritoneal omental biopsy (06/17/2025). No complications noted.
Breast biopsy deferred
Outpatient follow up with Oncology
Apprentice Photographer-onc, heme-onc, breast surgery following
#Renal failure
#Lower Abdominal Pain
Trend Cr: 5.3 on presentation, 2.6 today s/p bilateral PCN placement. Improving, though still markedly elevated.
Patient notes today that she has lower abdominal fullness and tenderness at her right PCN site after unsuccessful attempt for PCNU procedure.Minimal, red, blood tinged vaginal discharges. Apprentice Photographer-Onco consulted and noted that it was likely to a recent
D&C procedure and swelling likely to low albumin or ascites. Patient was also reevaluated by Apprentice Photographer-Onco and IR.
IR plan: upsize right PCN.
Etiology of renal failure likely related to metastatic pathology.
Nephrology, urology, IR, Apprentice Photographer-onc, gynecology, heme-onc, breast surgery following
Past pertinent studies:
Imaging studies:
-Abdominal ultrasound (06/05): Per radiology, ascites, fatty liver, b/l renal collecting system dilatation, possible IVC thrombus.
-Bladder scan (06/05): Per radiology, pelvic ascites.
-IVC/iliac ultrasound: IVC and iliacs are patent
-CTAP 06/06: Per radiology, severe bilateral hydronephrosis without obstructing stone; 8.0 x 5.6 cm lobulated, minimally heterogenous lesion in the pelvis, possible malignancy; diffusely mixed lucent/lytic appearance of the axial and proximal
appendicular skeleton
Paracentesis performed 06/06. SAAG approximately 2.2
Bilateral nephrostomy tubes placed 06/07/2025 for treatment of hydronephrosis 2/2 suspected obstruction related to pelvic pathology
#Hypocalcemia
- 8.5 normal today, continue to monitor
#Anemia
Hgb 7.5 today, continue to monitor
Patient currently asymptomatic
Suspected 2/2 renal failure or chronic disease
Continue to monitor PCN drainage for signs of bleeding. Urine currently clear.
Consider EPO stimulating agent if Hgb continues to decrease, pending EPO level
No signs of active bleeding
Trend CBC
Transfuse Hgb <7
#Hyperkalemia
K 3.7, stable
Monitor BMP
#Moderate protein calorie malnutrition of chronic illness
BMI 17.4
DVT PPx: SC heparin
CODE STATUS: Full
Anticipated Discharge: > 48 hours
Anticipated Discharge: Within 24 hours
Subjective/Interval History
-
Date of Service: June 21, 2025
The patient still has aching, abdominal pain with lower abdominal swelling. Pain also reported at the right PCN site, with some leaking. Minimal red, vaginal discharge also noted.
Objective Data
-
Labs:
Laboratory Results
06/21/25
06:33
WBC 5.3
Hgb 7.5 L
Hct 22.3 L
Plt Count 262 D
Sodium 134 L
Potassium 3.7
Chloride 104
Carbon Dioxide 23
BUN 51 H
Creatinine 2.6 H
Glucose 111 H
Calcium 8.5
Vital Signs:
Vital Signs
Temp Pulse Resp BP Pulse Ox
98.4 F 99 14 111/67 100
06/21/25 15:08 06/21/25 15:08 06/21/25 15:08 06/21/25 15:08 06/21/25 15:08
I&O
06/20/25 06/21/25 06/22/25
06:59 06:59 06:59
Intake Total 1200 / 1200 1020 / 1020
Output Total 3200 / 3200 3775 / 3775 750 / 750
Balance -2000 / -2000 -2755 / -2755 -750 / -750
Review of Systems
-
History Source: Patient
Constitutional: Reports Other (Denies fever, weakness)
EENT: Reports No Symptoms Reported
Respiratory: Reports No Symptoms
Cardiac: Reports No Symptoms
Abdomen/GI: Reports Abdominal Pain (lower abdomen) and Other (lower abdominal fullness)
Breast: Reports Mass/Lump
Genitourinary: Reports Vaginal Discharge ((+) minimal, bloody discharge. ) and Other (pain at right PCN site)
Musculoskeletal: Reports Other (Denies edema )
Neuro: Reports Other (No dizziness, headaches, numbness, ataxia)
Endocrine: Reports No Symptoms
Physical Exam
-
General: No Apparent Distress and Conversant
HEENT: Normocephalic and Atraumatic
Respiratory: Clear to Auscultation and Non Labored Respirations
Cardiac: Regular Rhythm and S1/S2
GI: Soft, Tender and Other (normoactive bowel sounds, lower abdominal swelling)
Rectal: Deferred by Provider
Genito-urinary: Clear Urine and Other (PCN)
Musculoskeletal: No Edema
Skin: Warm
Neuro: AO x 3, No Motor Deficits and No Sensory Deficits
Psych: Calm
[2025-06-21 23:15] VITALS: BP 105/67
[2025-06-22 06:00] VITALS: BMI 17.6
[2025-06-22 07:00] VITALS: BP 103/67
[2025-06-22] MEDS: MIRALAX 17 GRAMS PO (08:12)
[2025-06-22] MEDS: FLEET PHOSPHATE ENEMA-ADULT RECTAL (08:12)
[2025-06-22] MEDS: NORVASC PO (08:13)
[2025-06-22] MEDS: SODIUM BICARBONATE 325 MG PO (08:13)
[2025-06-22] MEDS: HEPARIN SC (08:13)
[2025-06-22 09:06] LABS: Hematocrit 23.1 % (37.0-47.0); Hemoglobin 7.7 g/dL (12.0-16.0); Mean Corp Hgb Conc. 33.3 g/dL (33.0-37.0); Mean Corpuscular Volume 87.8 fL (81.0-99.0); Platelet Count 306 10^3/uL (130-400); Red Cell Dist. Width 13.4 % (11.5-14.5)
[2025-06-22 09:40] LABS: Blood Urea Nitrogen 51 mg/dl (7-17); Calcium 8.7 mg/dl (8.4-10.2); Carbon Dioxide 24 mmol/L (22-30); Chloride 102 mmol/L (98-107); Estimated Creatinine Clearance 18 ml/min; Glucose 110 mg/dl (70-99); Potassium 4.5 mmol/L (3.5-5.1); Sodium 131 mmol/L (135-145); eGFR 22.02
--- NOTE | 2025-06-22 11:06 | W.PN.URO.CBU ---
Today's Communication / Plan
-
home on external drainage irad to follow up
Assessment / Plan
-
54F with severe bilateral hydronephrosis, pelvic mass, ascites, weight loss, acute vs chronic renal failure
Found to have metastatic breast cancer
s/p b/l percutaneous nephrostomy placement 06/07/25
s/p failed attempt at conversion to nephroureteral stents 06/19 due to extent of malignant obstruction
- Maintain percutaneous nephrostomy tubes
- Mild hematuria and pelvic discomfort after ureteral stent attempt is improving
- Subcutaneous/retroperitoneal air on CT 06/20 expected after laparoscopic surgery
- Outpatient follow up after discharge to arrange routine PCN exchanges and further eval based on response to cancer treatment
Diagnosis
-
Date of Service: June 22, 2025
-
Patient Diagnosis:
Post Op Day:
Patient Diagnosis:
bilateral hydronephrosis
malignant ureteral obstruction
AVERY
metastatic breast cancer
Post Op Day:
Subjective
-
no gu complaints
Objective
-
Vital Signs
Temp Pulse Resp BP Pulse Ox
97.9 F 95 16 103/67 100
06/22/25 07:00 06/22/25 07:00 06/22/25 07:00 06/22/25 07:00 06/22/25 07:00
Intake and Output
06/21/25 06/22/25 06/23/25
06:59 06:59 06:59
Intake Total 1020 / 1020 1140 / 1140
Output Total 3775 / 3775 2475 / 2475
Balance -2755 / -2755 -1335 / -1335
Intake:
Oral fluids 1020 / 1020 1140 / 1140
Output:
Urinary Drain Output (Total) 3775 / 3775 2475 / 2475
Left Nephrostomy 2975 / 2975 1675 / 1675
Right Nephrostomy 800 / 800 800 / 800
Laboratory Results
06/22/25 07:24
06/22/25 07:24
Review of Systems
-
: Flank Pain
Physical Exam
-
General - well developed, well nourished, no acute distress
Chest - clear bilaterally
Abdomen - soft, non-tender, positive bowel sounds, no CVAT, no incisional pain or distention
Genitalia - normal
Rectal - normal
Skin - warm & dry with no rash
Neuro - AOx3, no motor deficits
Extremities - no clubbing, no cyanosis, no edema
Incision - clean, dry
Dressing - clean, dry, intact
Counseling
-
see if casandra has preprinted sheetds on pec tube care
Care Review
Data Reviewed
Discussed with: Nursing
--- NOTE | 2025-06-22 11:30 | W.PN.HOSP.TC ---
Addendum entered and electronically signed by Abelardo Beltran MD 06/22/25 14:23:
outpaient onc and drug inspector onc follow up with breast surgergy
per inpatietn start letrozole 2.5mg daily
dc home with analgesics in the setting of ongoing cancer pain
continue drain care for pcn
--exchanged/repositioned yesterday by IR
---Noted blood now clearing up
Original Note:
Today's Communication/Plan
-
IR communicated regarding red-tinged urine after right PCN upsize, said it was fine and okay for discharge
Discharge today
Follow up with [facility] as outpatient
Follow up with primary care physician for established care
Assessment / Plan
Assessment / Plan
Patient is a 54-year-old female with no known past medical history who presented to the [facility] emergency department for evaluation of abnormal outpatient labs. The labs were completed after the patient attempted to establish care with
a PCP due to her fatigue, weight loss, abdominal bloating, early satiety, and solid stools since December of this year. [place] the [place] a [place] ago after living in [facility] for 14 years. Patient's labs on presentation included
the following: Cr 5.3, BUN 79, K 6.2, AST 39, ALT 43, alk phos 161, and lipase 451.
# Metastatic adenocarcinoma
S/P robot-assisted laparoscopy BSO, peritoneal omental biopsy (06/17/2025). No complications noted.
CA125 419 elevated, SPEP normal, CEA 8.46 elevated, negative ascitic cytology
Right iliac bone biopsy:
Estrogen Receptor Positive (30% of cells with nuclear positivity),
Progesterone Receptor Positive (70% of cells with nuclear positivity)
HER2 Negative (Score: 0)
Ki-67 Proliferation Index 2%
Peritoneal omental biopsy:
A. Right ovary and fallopian tube, robotic RSO �
Metastatic carcinoma consistent with breast primary.
B. Endometrial curettings �
Unremarkable ectocervical squamous, endocervical and lower uterine segment
epithelium.
Right diaphragm biopsy �
Metastatic carcinoma consistent with breast primary.
D. Left ovary and fallopian tube, robotic LSO �
Metastatic carcinoma consistent with breast primary
E. Right pelvic peritoneum biopsy �
Metastatic carcinoma consistent with breast primary.
F. Left pelvic peritoneum biopsy �
Metastatic carcinoma consistent with breast primary.
CA 27-29- 926.3 H
Peritoneal fluid pending
Outpatient follow up with Oncology
#Renal failure
#Lower Abdominal Pain
Trend Cr: 5.3 on presentation, 2.5 today s/p bilateral PCN placement. Improving, though still markedly elevated.
Patient notes abdominal pain, but decreased mildly in intensity. Right PCN has red-tinged urine, IR consulted and said it was expected after the upsize procedure and patient ok for discharge.
Etiology of renal failure likely related to metastatic pathology
Outpatient follow up with Nephrology.
Past pertinent studies:
Imaging studies:
-Abdominal ultrasound (06/05): Per radiology, ascites, fatty liver, b/l renal collecting system dilatation, possible IVC thrombus.
-Bladder scan (06/05): Per radiology, pelvic ascites.
-IVC/iliac ultrasound: IVC and iliacs are patent
-CTAP 06/06: Per radiology, severe bilateral hydronephrosis without obstructing stone; 8.0 x 5.6 cm lobulated, minimally heterogenous lesion in the pelvis, possible malignancy; diffusely mixed lucent/lytic appearance of the axial and proximal
appendicular skeleton
Paracentesis performed 06/06. SAAG approximately 2.2
Bilateral nephrostomy tubes placed 06/07/2025 for treatment of hydronephrosis 2/2 suspected obstruction related to pelvic pathology
#Hypocalcemia
- 8.7 normal today, continue to monitor
#Anemia secondary to acute kidney failure likely due to metastatic carcinoma, primary breast in origin
Hgb 7.7 today, continue to monitor
Patient currently asymptomatic
Continue to monitor PCN drainage for signs of bleeding.
Consider EPO stimulating agent if Hgb continues to decrease, pending EPO level
No signs of active bleeding
Trend CBC
Transfuse Hgb <7
#Hyperkalemia
K 4.5, stable
Monitor BMP
#Moderate protein calorie malnutrition of chronic illness
BMI 17.6
DVT PPx: SC heparin
CODE STATUS: Full
Anticipated Discharge: > 48 hours
Anticipated Discharge: Today
Subjective/Interval History
-
Date of Service: June 22, 2025
Although still painful, the patient reports a decrease in lower abdominal pain. Red-tinged urine noted in the Right PCN after yesterday's Right PCN upsize.
Objective Data
-
Labs:
Laboratory Results
06/22/25
07:24
WBC 6.6
Hgb 7.7 L
Hct 23.1 L
Plt Count 306
Sodium 131 L
Potassium 4.5
Chloride 102
Carbon Dioxide 24
BUN 51 H
Creatinine 2.5 H
Glucose 110 H
Calcium 8.7
Vital Signs:
Vital Signs
Temp Pulse Resp BP Pulse Ox
97.9 F 95 16 103/67 100
06/22/25 07:00 06/22/25 07:00 06/22/25 07:00 06/22/25 07:00 06/22/25 07:00
I&O
06/21/25 06/22/25 06/23/25
06:59 06:59 06:59
Intake Total 1020 / 1020 1140 / 1140
Output Total 3775 / 3775 2475 / 2475
Balance -2755 / -2755 -1335 / -1335
Review of Systems
-
History Source: Patient
Constitutional: Reports Other (Denies fever, weakness)
EENT: Reports No Symptoms Reported
Respiratory: Reports No Symptoms
Cardiac: Reports No Symptoms
Abdomen/GI: Reports Abdominal Pain (lower abdomen) and Other (lower abdominal swelling)
Breast: Reports Mass/Lump
Genitourinary: Reports Other (red tinged urine at Right PCN site after Right PCN upsize.)
Musculoskeletal: Reports Other (Denies edema)
Neuro: Reports Other (Denies dizziness, headaches, numbness, ataxia)
Endocrine: Reports No Symptoms
Physical Exam
-
General: No Apparent Distress and Conversant
HEENT: Normocephalic and Atraumatic
Respiratory: Clear to Auscultation and Non Labored Respirations
Cardiac: Regular Rhythm and S1/S2
GI: Soft, Tender and Other (normoactive bowel sounds)
Rectal: Deferred by Provider
Genito-urinary: Nephrostomy Tubes and Other (red-tinged urine in right PCN bag)
Musculoskeletal: No Clubbing, No Cyanosis and No Edema
Skin: Warm and Normal Turgor
Neuro: AO x 3, No Motor Deficits and No Sensory Deficits
Psych: Calm
--- NOTE | 2025-06-22 13:16 | W.PN.ONC ---
Today's Communication / Plan
-
letrozole 2.5mg daily
f/u Dr. Leon 06/26
Impression
Impression
stage IV breast cancer ER/CT positive, Her2 negative via bone biopsy 06/13 and right ovary
ascites, with high SAAG and negative cytology (reactive mesothelial cells)
renal insufficiency - component of obstructive uropathy, s/p perc nephrostomy tubes - creatinine improved
anemia
Plan
Plan
1. Stage IV breast cancer -
-discussed recent pathology in detail w/ patient
-w/ ER positivity - will start AI - letrozole 2.5mg daily
-f/u to be arranged this week w/ Dr. Leon - 06/26 10:30am - [facility] Office
Subjective/Objective
Subjective/Objective
feels better
Vital Signs:
Vital Signs
Temp Pulse Resp BP Pulse Ox
97.9 F 95 16 103/67 100
06/22/25 07:00 06/22/25 07:00 06/22/25 07:00 06/22/25 07:00 06/22/25 07:00
Lab Results:
Laboratory Data
WBC 6.6 10^3/uL (4.8-10.8) 06/22/25 07:24
Hgb 7.7 g/dL (12.0-16.0) L 06/22/25 07:24
Plt Count 306 10^3/uL (130-400) 06/22/25 07:24
PT 14.9 Sec (11.4-14.6) H 06/05/25 05:29
INR 1.14 06/05/25 05:29
eGFR 22.02 06/22/25 07:24
Exam: unchanged
[2025-06-22 15:37] VITALS: BP 116/69
--- NOTE | 2025-06-22 16:31 | W.DCSUMMARY ---
Discharge Summary
Discharge Data
Date of Admission: 06/04/25
Date of Discharge: 06/22/25
-
Pending Results: Yes (Peritoneal Fluid Cytology)
Hospital Course
Discharging Physician : Annel Hoover
Disposition : Home
Primary care physician : Dr. Abelardo Beltran
Principal Discharge diagnosis : Metastatic Breast Cancer, Bilateral Hydronephrosis, Chronic Kidney Disease, Malignant Ascites, Transaminitis, Normocytic Anemia, Hyperkalemia, s/p Bilateral PCN.
Chronic Discharge diagnosis :
Hospital Course :
Patient is a 54-year-old female with no known past medical history who presented to the [facility] emergency department for evaluation of abnormal outpatient laboratories. The laboratories were completed after the patient attempted to
establish care with a PCP due to fatigue, weight loss, abdominal bloating, early satiety, and solid stools since December of this year. [place] to the [place] a few months ago after living in [facility] for 14 years. Patient's labs on
presentation included the following: Cr 5.3, BUN 79, K 6.2, AST 39, ALT 43, alk phos 161, and lipase 451. Lokelma given for hyperkalemia and potassium trend down to 5.3. Patient was admitted for further studies. Nephrology consult sought. On
hospital day#1 transaminitis persisted, and abdominal ultrasound demonstrated widespread abdominal ascites prompting paracentesis. Peritoneal fluid microbiology showed no growth. Hgb also low at 6.9, thus packed RBC given, Hemoglobin was 7.1 post
transfusion and remained >7hgb throughout the whole hospital course. Continued studies conducted to investigate renal failure. Urology consult initiated. On hospital day #2 CT abdomen/pelvis showed severe bilateral hydronephrosis without obstructing
stone, concerning for malignancy. Diffusely mixed lucent/lytic appearance of the axial and proximal appendicular skeleton concerning for diffusely osseous metastatic disease over renal osteodystrophy also noted, prompting Nephrostomy tube placement
and malignancy suspicion.Follow up pelvic/transvaginal ultrasound found 5.7 cm irregularly shaped solid soft tissue mass in the center of the pelvis. CEA normal and CA125 high. Gynecologic Oncology consult sought. On hospital day#3 PCN well
tolerated, able to produce about 600 to 700 cc output of urine.Continued monitoring done. Laboratory studies on going. On hospital day #4 Bone Scan Nuclear Medicine suggested widespread abnormalities. On hospital day #6 Follow up metastatic studies
with MRI Pelvis with and without contrast showed moderate pelvic ascites displacing small bowel loops, the urinary bladder, sigmoid colon, and rectum with surrounding mild peritoneal hyperenhancement suggesting malignant ascites secondary to
mucinous carcinoma; irregular shaped uterus in the center of the pelvis containing approximately 20 uterine leiomyoma. Extensive diffuse sclerotic osseous metastatic disease also noted. Breast surgery consult sought. On hospital day #7 Oncology
sought, bone biopsy discussed but patient opted to hold off on procedure. Breast ultrasound showed 2 solid masses corresponding to the palpable masses of the left breast. One of which is biopsy proven fibroadenoma present for 20 years and
stable/decreased in size. On hospital day #8 Sodium Bicarbonate tablets added to medication regiment for evolving acidosis. On Hospital day #9, Bone biopsy CT done, results pending. Creatinine downtrending continued, acidosis improving. On hospital
day #11, Peritoneal cytology showed atypical reactive mesothelial cells, no definitive malignancy etiology can be considered. Plan for Robotic assisted laparoscopy, BSO, and omental biopsy discussed with patient and agreed upon; to be scheduled on
06/17/2025. On Hospital day #13 Echocardiogram obtained and largely unremarkable aside from pleural effusion and trivial pericardial effusion. Patient cleared, prepped, and undergone surgery. No complications noted, biopsy pending. Scattered
implants of tumor across the entire intestinal tract, confluent deposits of tumor in the peritoneum involving right greater than left diaphragm, anterior and posterior cul-de-sac, right and left pelvis and right and left paracolic gutters observed.
Uterus has multiple leiomyoma but the serosa is coated with implants of tumor, bilateral ovaries appear to be normal in size and appropriate for age but have implants on the ovary tube and periadnexal tissue. Frozen section of the right ovary
reveals metastatic adenocarcinoma not primary most likely from breast or gastric origin also noted. At this point, metastatic breast cancer considered the most likely etiology. On hospital day #14 Metastatic lobular breast cancer is working
diagnosis. Chest CT was negative for pulmonary mass or suspicious pulmonary nodules. No mediastinal adenopathy identified. There are bilateral mildly enlarged axillary lymph nodes. On hospital day #15 attempt to convert PCN to PCNU unsuccessful due
to obstruction, likely related to metastatic changes. On hospital day #16 Breast MRI showed mass with peripheral enhancement on medial and inferior aspect left breast which corresponds to the ovoid solid mass seen on ultrasound of the left breast
from previous study. Bone pathology results demonstrated metastatic mammary carcinoma ER (+) GA (+) HER2 (-). Risk and benefits for biopsy reviewed and biopsy was chosen to be deferred as patient's clinical symptoms and laboratories suggestive of
metastatic lobular carcinoma, a subtype that is notorious for not being visible on breast imaging. It is also notorious for metastasizing to pelvic organs, and has also been described as metastasizing to ureters. Bone metastases are also common as
per oncologic specialist opinion, at this point in time, visualized mass in not considered the primary breast cancer origin. Patient agreed to be managed as outpatient for an oncologic follow up. However, discharge deferred as patient reported
abdominal discomfort and swelling. Interventional Radiology and Gynecologic Oncology consult for evaluation. CT abdomen pelvis showed prominent free air, likely due to post operative procedure. On hospital day#17 Right PCN upsized and patient stayed
overnight for observation. On hospital day #18, all medical team services deemed patient stable to go home. Outpatient referrals and instruction given.
Important findings :
Refer above
Omental Biopsy results
Right ovary and fallopian tube, robotic RSO �Metastatic carcinoma consistent with breast primary.
B. Endometrial curettings �Unremarkable ectocervical squamous, endocervical and lower uterine segment
epithelium.
C. Right diaphragm biopsy �Metastatic carcinoma consistent with breast primary.
D. Left ovary and fallopian tube, robotic LSO �Metastatic carcinoma consistent with breast primary (see note).
E. Right pelvic peritoneum biopsy �Metastatic carcinoma consistent with breast primary.
F. Left pelvic peritoneum biopsy �Metastatic carcinoma consistent with breast primarytastatic carcinoma consistent with breast primary
E. Right pelvic peritoneum biopsy � Metastatic carcinoma consistent with breast primary.
Left pelvic peritoneum biopsy � Metastatic carcinoma consistent with breast primary
Procedure findings :
Discharge Plan
-
Patient Disposition: Home (Routine Discharge)
Discharge Diagnosis/Procedures: Metastatic Breast Cancer, Bilateral Hydronephrosis, Chronic Kidney Disease, Malignant Ascites, Transaminitis, Normocytic Anemia, Hyperkalemia, s/p Bilateral PCN.
Condition: Fair
Diet: As tolerated
Activity: No restrictions
Driving Restrictions: As prior to admission
Bathing Restrictions: None
Instructions: How to care for a nephrostomy tube
Referrals:
Getachew Tyson DO [Other, Family Practice]
Oswaldo Olivier MD [Active, Urology]
Referral Note: call Dr Skyler Coronado or Dr. Olivier [phone] for mangement of percutaneous nephrostomy tubes
Marylou Leon DO [Active, Hematology / Oncology] - 06/26/25
Skyler Coronado MD [Active, Urology]
Eran Price MD [Active, Hematology / Oncology]
Prescriptions:
New
hydromorphone [Dilaudid] 2 mg tablet
1 mg PO Q6H PRN (Reason: Pain) Qty: 14 0RF
acetaminophen 325 mg Tablet
650 mg PO Q4HPRN PRN (Reason: Mild Pain / Temp > 101) Qty: 30 3RF
polyethylene glycol 3350 17 gram Powder In Packet
17 g PO BID Qty: 30 0RF
sodium bicarbonate 650 mg Tablet
325 mg PO TID Qty: 30 0RF
bisacodyl 5 mg Tablet,Delayed Release (Dr/Ec)
10 mg PO DAILYPRN PRN (Reason: Constipation) Qty: 30 0RF
letrozole 2.5 mg tablet
2.5 mg PO DAILY Qty: 30 0RF
morphine 15 mg tablet
7.5 mg PO Q8H PRN (Reason: pain) Qty: 14 0RF
Continued
Tums Extra Strength Smoothies 300 mg (750 mg) Tablet,Chewable
600 - 900 mg PO DAILYPRN PRN (Reason: stomach upset)
ascorbic acid (vitamin C) [Vitamin C] 250 mg Tablet
250 mg PO DAILY
Discharge Orders:
Discharge Patient (As Directed); Ordered 06/22/25
Ordered By: Annel Hoover
Discharge Date and Time
Discharge Date/Time: 06/22/25 15:48
Print Language: GREENLANDIC
== END 2025-06-22 15:48 | disposition home or self-care (01) | DRG 737 ==
LOC: 3 WEST ACU 22:08
PROVIDERS: Emergency Medicine; Internal Medicine; Internal Medicine Hematology & Oncology; Radiology Diagnostic Radiology; Radiology Vascular & Interventional Radiology; Registered Nurse; Specialist; ADMITTING PHYSICIAN Hospitalist; ATTENDING PHYSICIAN Hospitalist; CONSULT PHYSICIAN Internal Medicine Hematology & Oncology; CONSULT PHYSICIAN Obstetrics & Gynecology Gynecologic Oncology; CONSULT PHYSICIAN Student in an Organized Health Care Education/Training Program; CONSULT PHYSICIAN Surgery; CONSULT PHYSICIAN Urology; EMERGENCY PHYSICIAN Emergency Medicine; OTHER PHYSICIAN Internal Medicine
PROC: 30233N1 Transfusion of Nonautologous Red Blood Cells into Peripheral Vein, Percutaneous Approach (ICD-10-PCS; 2025-06-05)
PROC: 0W9G3ZZ Drainage of Peritoneal Cavity, Percutaneous Approach (ICD-10-PCS; 2025-06-06)
PROC: 0T9130Z Drainage of Left Kidney with Drainage Device, Percutaneous Approach (ICD-10-PCS; 2025-06-07)
PROC: 0T9030Z Drainage of Right Kidney with Drainage Device, Percutaneous Approach (ICD-10-PCS; 2025-06-07)
PROC: 0QB23ZX Excision of Right Pelvic Bone, Percutaneous Approach, Diagnostic (ICD-10-PCS; 2025-06-13)
PROC: 8E0W4CZ Robotic Assisted Procedure of Trunk Region, Percutaneous Endoscopic Approach (ICD-10-PCS; 2025-06-17)
PROC: 0UT74ZZ Resection of Bilateral Fallopian Tubes, Percutaneous Endoscopic Approach (ICD-10-PCS; 2025-06-17)
PROC: 0DBW4ZX Excision of Peritoneum, Percutaneous Endoscopic Approach, Diagnostic (ICD-10-PCS; 2025-06-17)
PROC: 0UT24ZZ Resection of Bilateral Ovaries, Percutaneous Endoscopic Approach (ICD-10-PCS; 2025-06-17)
PROC: 0T25X0Z Change Drainage Device in Kidney, External Approach (ICD-10-PCS; 2025-06-19)
DX: C79.63 Secondary malignant neoplasm of bilateral ovaries (principal); C78.6 Secondary malignant neoplasm of retroperitoneum and peritoneum; N13.1 Hydronephrosis with ureteral stricture, not elsewhere classified; N17.9 Acute kidney failure, unspecified; R18.0 Malignant ascites; E44.0 Moderate protein-calorie malnutrition; Z68.1 Body mass index [BMI] 19.9 or less, adult; C79.51 Secondary malignant neoplasm of bone; E87.20 Acidosis, unspecified; C79.82 Secondary malignant neoplasm of genital organs; C50.912 Malignant neoplasm of unspecified site of left female breast; E87.5 Hyperkalemia; E83.39 Other disorders of phosphorus metabolism; D25.9 Leiomyoma of uterus, unspecified; N25.0 Renal osteodystrophy; R59.0 Localized enlarged lymph nodes; D63.1 Anemia in chronic kidney disease; I10 Essential (primary) hypertension; N18.9 Chronic kidney disease, unspecified; E83.51 Hypocalcemia; Z17.21 Progesterone receptor positive status; Z17.32 Human epidermal growth factor receptor 2 negative status; Z59.71 Insufficient health insurance coverage
CPT/HCPCS: 20225; 49083; 50432; 50435; 71250; 72197; 74176; 74183; 76642; 76700; 76830; 76856; 76857; 77012; 77049; 77062; 77066; 78306; 80048; 80053; 80061; 80143; 81003; 81015; 81050; 82042; 82248; 82378; 82570; 82607; 82668; 82728; 82746; 82962; 83036; 83520; 83540; 83550; 83605; 83615; 83690; 83735; 83880; 83935; 84100; 84132; 84155; 84156; 84157; 84165; 84300; 84443; 85014; 85018; 85025; 85027; 85610; 86300; 86304; 86335; 86705; 86706; 86709; 86803; 86850; 86900; 86901; 86920; 87015; 87070; 87205; 87340; 88112; 88305; 88307; 88311; 88331; 88333; 88341; 88342; 88360; 89051; 93005; 93306; 93978; 96374; 96375; 99152; 99153; 99284; A9503; A9575; A9585; C1729; C1769; G0123; P9016

== ENCOUNTER → 2025-07-05 16:31 | Outpatient (REF) | payer OTHER, SELFPAY | LOC: RCS 16:31 | PROVIDERS: ATTENDING PHYSICIAN Internal Medicine Hematology & Oncology | DX: C50.912 Malignant neoplasm of unspecified site of left female breast (principal); C79.51 Secondary malignant neoplasm of bone | CPT/HCPCS: 93005 ==

== ENCOUNTER → 2025-07-11 14:05 | Outpatient (REF) | payer OTHER, SELFPAY ==
[2025-07-11 14:36] LABS: Hematocrit 22.2 % (37.0-47.0); Hemoglobin 7.2 g/dL (12.0-16.0); Mean Corp Hgb Conc. 32.4 g/dL (33.0-37.0); Mean Corpuscular Volume 90.6 fL (81.0-99.0); Nucleated Red Blood Cells % 0 %; Platelet Count 170 10^3/uL (130-400); Red Cell Dist. Width 14.4 % (11.5-14.5)
[2025-07-11 14:59] LABS: ALT (SGPT) 34 U/L (0-35); AST (SGOT) 43 U/L (14-36); Albumin 4.0 g/dl (3.5-5.0); Alkaline Phosphatase 203 U/L (38-126); Blood Urea Nitrogen 42 mg/dl (7-17); Calcium 9.0 mg/dl (8.4-10.2); Carbon Dioxide 25 mmol/L (22-30); Chloride 104 mmol/L (98-107); Glucose 108 mg/dl (70-99); Potassium 5.6 mmol/L (3.5-5.1); Sodium 136 mmol/L (135-145); Total Protein 6.2 g/dl (6.3-8.2); eGFR 22.02
== END ==
LOC: REG 14:05
PROVIDERS: ATTENDING PHYSICIAN Internal Medicine Hematology & Oncology
DX: C50.912 Malignant neoplasm of unspecified site of left female breast (principal); C79.51 Secondary malignant neoplasm of bone; D63.1 Anemia in chronic kidney disease; N18.2 Chronic kidney disease, stage 2 (mild); C78.6 Secondary malignant neoplasm of retroperitoneum and peritoneum
CPT/HCPCS: 36415; 80053; 85025; 86850; 86900; 86901

== ENCOUNTER → 2025-08-12 12:09 | Outpatient (REF) | payer MEDICAID, SELFPAY ==
[2025-08-12 12:34] LABS: Glucose 103 mg/dl (70-99)
== END ==
LOC: PET 12:09
PROVIDERS: ATTENDING PHYSICIAN Internal Medicine Hematology & Oncology
DX: C50.912 Malignant neoplasm of unspecified site of left female breast (principal); C79.51 Secondary malignant neoplasm of bone; D63.1 Anemia in chronic kidney disease; N18.2 Chronic kidney disease, stage 2 (mild); C78.6 Secondary malignant neoplasm of retroperitoneum and peritoneum
CPT/HCPCS: 36415; 82947

== ENCOUNTER → 2025-08-28 10:44 | Outpatient (REF) | payer MEDICAID, SELFPAY ==
[2025-08-28 10:58] VITALS: BP 137/87; BP_SYST 75
[2025-08-28 11:40] VITALS: BP 124/76; BP_SYST 71
[2025-08-28 13:16] LABS: Body Fluid Second Tech EF
== END ==
LOC: RADI 10:44
PROVIDERS: ATTENDING PHYSICIAN Internal Medicine Hematology & Oncology
DX: R18.8 Other ascites (principal); Z85.3 Personal history of malignant neoplasm of breast; I49.1 Atrial premature depolarization
CPT/HCPCS: 49083; 89051; 93005

== ENCOUNTER → 2025-09-11 11:42 | Outpatient (REF) | payer OTHER, SELFPAY ==
[2025-09-11 12:35] VITALS: BP 128/79; BP_SYST 74
[2025-09-11 13:10] VITALS: BP 126/78; BP_SYST 70
[2025-09-11 14:22] LABS: Body Fluid Second Tech ASW
== END ==
LOC: RADI 11:42
PROVIDERS: Internal Medicine Hematology & Oncology; ATTENDING PHYSICIAN Urology; FAMILY PHYSICIAN Family Medicine
DX: Z43.6 Encounter for attention to other artificial openings of urinary tract (principal); R18.0 Malignant ascites; C80.1 Malignant (primary) neoplasm, unspecified; N13.1 Hydronephrosis with ureteral stricture, not elsewhere classified
CPT/HCPCS: 49083; 50435; 89051; C1729; C1769

== ENCOUNTER → 2025-09-26 12:58 | Outpatient (REF) | payer OTHER, SELFPAY ==
[2025-09-26 13:27] VITALS: BP 142/87; BP_SYST 100
[2025-09-26 13:45] VITALS: BP 148/89; BP_SYST 85
[2025-09-26 16:49] LABS: Body Fluid Second Tech EYM
== END ==
LOC: RADI 12:58
PROVIDERS: ATTENDING PHYSICIAN Internal Medicine Hematology & Oncology
DX: R18.8 Other ascites (principal); C50.912 Malignant neoplasm of unspecified site of left female breast; C79.51 Secondary malignant neoplasm of bone
CPT/HCPCS: 49083; 89051

== ENCOUNTER → 2025-10-11 10:35 | Outpatient (REF) | payer OTHER, SELFPAY ==
[2025-10-11 10:40] VITALS: BP 139/85; BP_SYST 89
[2025-10-11 11:25] VITALS: BP 128/89; BP_SYST 87
[2025-10-11 11:30] VITALS: BP 128/89
[2025-10-11 12:13] LABS: Body Fluid Second Tech EM
== END ==
LOC: RADI 10:35
PROVIDERS: ATTENDING PHYSICIAN Internal Medicine Hematology & Oncology
DX: C80.1 Malignant (primary) neoplasm, unspecified (principal); R18.0 Malignant ascites
CPT/HCPCS: 49083; 89051

== ENCOUNTER → 2025-10-25 07:39 | Outpatient (REF) | payer OTHER, SELFPAY ==
[2025-10-25 08:59] VITALS: BP 142/89; BP_SYST 98
[2025-10-25 09:26] VITALS: BP 121/77
[2025-10-25 12:49] LABS: Body Fluid Second Tech HB
== END ==
LOC: RADI 07:39
PROVIDERS: ATTENDING PHYSICIAN Nurse Practitioner Adult Health
DX: R18.8 Other ascites (principal)
CPT/HCPCS: 49083; 89051

== ENCOUNTER → 2025-10-29 10:06 | Outpatient (REF) | payer OTHER, SELFPAY ==
--- NOTE | 2025-10-29 10:57 | PN.IRAD.UPD ---
Update Note - IRAD
- -
Right PCN cleaned with chloraprep. New stitch placed. New dry,clean dressing placed over site. Patient tolerated procedure well. Patient requested left PCN looked at to make sure stitch was ok . The stitch on left side was intact. left pcn site was
cleaned with chloraprep and a new clean, dry dressing was applied.
== END ==
LOC: RADI 10:06
PROVIDERS: ATTENDING PHYSICIAN Radiology Vascular & Interventional Radiology
DX: Z43.6 Encounter for attention to other artificial openings of urinary tract (principal); N13.6 Pyonephrosis

== ENCOUNTER → 2025-11-19 12:10 | Outpatient (REF) | payer OTHER, SELFPAY ==
[2025-11-19 12:30] VITALS: BP 121/80; BP_SYST 90
[2025-11-19 13:33] VITALS: BP 122/74; BP_SYST 86
[2025-11-19 13:36] VITALS: BP 122/74
[2025-11-19 15:50] LABS: Body Fluid Second Tech DW
== END ==
LOC: RADI 12:10
PROVIDERS: ATTENDING PHYSICIAN Nurse Practitioner Adult Health
DX: R18.8 Other ascites (principal); C50.919 Malignant neoplasm of unspecified site of unspecified female breast
CPT/HCPCS: 49083; 89051